=== PATIENT | female | born 1975 | race Hispanic/Latino ===

== ENCOUNTER 2018-09-10 01:44 | Emergency (ER) | payer OTHER, SELFPAY ==
[2018-09-10 02:09] VITALS: BP 129/49; PULSE 72; RESP 14; TEMP 36.4; O2SAT 95; BMI 24.5
[2018-09-10] MEDS: SODIUM CHLORIDE 0.9% 1,000 ML 1000 ML IV (03:00)
[2018-09-10 03:02] LABS: Add Manual Diff / Slide Review NO; Basophils Percent Auto 0.6 % (0-2); Eosinophils Percent Auto 1.8 % (2-4); Hematocrit 41.9 % (36-46); Hemoglobin 12.1 g/dL (12.0-16.0); Lymphocytes Percent Auto 33.9 % (25-40); Mean Corpuscular Hemoglobin 29.5 PG (26-34); Mean Corpuscular Volume 101.9 fL (80-100); Monocytes Percent Auto 6.9 % (3-14); Neutrophils Absolute Auto 3300 /uL (3000-5900); Neutrophils Percent Auto 56.8 % (50-75); Red Blood Cell Count 4.11 X10^6/uL (4.0-5.2); Red Cell Distribution Width 14.2 % (11.6-14.8); White Blood Cell Count 5.8 X10^3/uL (4.5-11.0)
[2018-09-10 03:04] LABS: Alanine Aminotransferase 93 IU/L (9-52); Albumin 4.6 g/dL (3.5-5.0); Albumin Globulin Ratio 1.5 (1.0-2.8); Alkaline Phosphatase 79 U/L (38-126); Aspartate Aminotransferase 131 IU/L (14-36); Bilirubin Total 2.9 mg/dL (0.2-1.3); Blood Urea Nitrogen 18 mg/dL (7-17); Calcium 8.7 mg/dL (8.4-10.2); Carbon Dioxide 27 mmol/L (22-32); Chloride 105 mmol/L (98-107); Estimated Glomerular Filt Rate > 60.0 mL/min (>60); Globulin 3.1 g/dL (1.7-4.1); Glucose 104 mg/dL (70-100); HEMOLYSIS < 15 (0-50); Potassium 3.6 mmol/L (3.4-5.1); Sodium 143 mmol/L (137-145); Total Protein 7.7 g/dL (6.3-8.2)
[2018-09-10 03:06] LABS: Lipase 180 U/L (23-300)
--- NOTE | 2018-09-10 03:06 | DI.US.S_ITS ---
PROCEDURE: US ABDOMEN COMPLETE INDICATIONS: RUQ pain, hx of cholecystectomy TECHNIQUE: Real-time scanning was performed of the abdominal and retroperitoneal organs, with image documentation. COMPARISON: , CT, ABDOMEN/PELVIS WITH CONTRAST, 11/21/2016, 13:37. FINDINGS: Liver: Liver is normal in size and homogeneous in echotexture. Gallbladder: Surgically absent. Biliary ducts: Intrahepatic bile ducts are non-dilated. Extrahepatic bile duct caliber measures 5.0 mm. Normal is 6-7 mm or less in diameter, or 10 mm or less post-cholecystectomy. Pancreas: Visualized portions of the pancreas are sonographically normal. Spleen: Spleen is enlarged in size at 17.3 cm and homogeneous in echotexture. Kidneys: Kidneys are normal in size and echotexture. Right kidney measures 11.8 cm long; left kidney measures 12.9 cm long. No hydronephrosis or nephrolithiasis. No solid masses. Aorta: Visualized aorta is normal in caliber at less than 3 cm. Iliacs: Proximal common iliac arteries are normal in caliber at less than 2.5 cm. IVC: Intrahepatic inferior vena cava is patent. Miscellaneous: No free abdominal fluid. IMPRESSION: 1. No source for mid epigastric and right upper quadrant pain identified. 2. Sonographic splenomegaly. Dictated by: Daren Craig David Interpreted: Ashwin Barney MD on 09/10/2018 at 9:11 Approved by: Ashwin Barney M.D. on 09/10/2018 at 10:30
--- NOTE | 2018-09-10 03:07 | ED_ITS ---
HPI - Abdominal Pain General Chief Complaint: Abdominal Pain Stated Complaint: stomach pain/vomiting x30 minutes Time Seen by Provider: 09/10/18 02:45 Source: patient and family () Mode of arrival: ambulatory Limitations: no limitations History of Present Illness HPI narrative: This is a 42-year-old female comes to the emergency department with complaint of abdominal pain. Patient states that pain is in her anterior abdomen radiates a little bit to the side on the right. She states it feels like when she had gallbladder issues but she had her gallbladder removed a couple years ago. She has not had any fevers, she is nauseous. She did have several episodes of vomiting prior to arrival. She denies any diarrhea or constipation. She denies any urinary symptoms. She states that she has had similar symptoms once or twice before but they resolved. This evening it woke her up from sleep and was quite uncomfortable. 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 She denies any other medical issues. She states that she has not had any other surgeries besides a cholecystectomy. Related Data Previous Rx's Medication Instructions Recorded cephalexin [Keflex] 500 mg PO BID 7 Days #14 cap 09/10/18 meloxicam [Mobic] 7.5 mg PO BID #10 tab 09/10/18 Allergies Allergy/AdvReac Type Severity Reaction Status Date / Time No Known Drug Allergies Allergy Verified 09/10/18 02:08 Review of Systems Review of Systems All systems reviewed & are unremarkable except as noted in HPI and below Constitutional Denies fever(s) Cardiovascular Denies chest pain and Denies dyspnea Respiratory Denies dyspnea Gastrointestinal Gastrointestinal: Reports abdominal pain, Denies melena, Denies change in bowel habits, Denies constipation, Denies diarrhea, Reports nausea, Reports vomiting and Denies hematemesis Genitourinary Denies urinary frequency, Denies dysuria, Denies flank pain and Denies urinary urgency Musculoskeletal Denies back pain PFSH Medical History Anemia (Chronic) Surgical History Anesthesia (Resolved) Status post laparoscopic cholecystectomy (~12/2013) Family History Mother Age: 60 Diabetes mellitus Social History Smoking Status: Never smoker alcohol intake: current substance use type: does not use Exam Narrative Exam Narrative: GENERAL: Alert and oriented x three, well-nourished, well- appearing female in moderate distress. HEENT: Head normocephalic, atraumatic, EOMI, pupils reactive, face symmetric, moist mucous membranes, patient appears to have some scleral icterus. NECK: Supple, full range of motion CARDIOVASCULAR: Regular rate and rhythm without murmurs, rubs or gallops. RESPIRATORY: Breath sounds equal bilaterally, no wheezes rales or rhonchi. ABDOMEN: Soft, nontender. Nondistended. Normoactive bowel sounds all 4 quadrants. No guarding or rebound, rigidity, no mass : No CVA tenderness EXTREMITIES: Normal range of motion, no clubbing or edema. Neurovascularly intact NEUROLOGICAL: Cranial nerves II through XII grossly intact. Moving all extremities SKIN: Warm, dry, no petechiae, no rashes or lesions. Initial Vital Signs Initial Vital Signs: Vital Signs Temperature 97.5 F L 09/10/18 02:09 Pulse Rate 72 09/10/18 02:09 Respiratory Rate 14 09/10/18 02:09 Blood Pressure 129/49 L 09/10/18 02:09 Pulse Oximetry 95 09/10/18 02:09 Course Orders Ordered: ED Orders 09/10/18 02:00 Complete Blood Count AUTO DIFF Stat Comprehensive Metabolic Panel Stat Lipase Stat 09/10/18 02:06 Ictotest Urine Stat Test Urine Stat Urinalysis and Microscopic Stat Urine Culture Stat 09/10/18 03:06 US abdomen complete Stat Discontinued Medications Cefazolin Sodium (Keflex) 1 bottle MIS SEEINSTR ONE Stop: 09/10/18 06:50 Last Admin: 09/10/18 07:02 Dose: 250 mg Sodium Chloride (Normal Saline 0.9%) 1,000 mls @ 1,000 mls/hr IV BOLUS ONE Stop: 09/10/18 03:44 Last Infusion: 09/10/18 04:01 Dose: 1,000 mls/hr Admin: 09/10/18 03:00 Dose: 1,000 mls/hr Ketorolac Tromethamine (Toradol) 30 mg IV NOW ONE Stop: 09/10/18 03:07 Last Admin: 09/10/18 03:26 Dose: 30 mg Ondansetron HCl (Zofran) 4 mg IV NOW ONE Stop: 09/10/18 02:46 Last Admin: 09/10/18 03:53 Dose: Not Given Ondansetron HCl (Zofran Odt Prepack) 1 bottle MISC SEEINSTR ONE Stop: 09/10/18 06:50 Last Admin: 09/10/18 07:03 Dose: 1 bottle Vital Signs - 8 hr 09/10/18 02:09 09/10/18 07:18 Temperature 97.5 F L Pulse Rate 72 66 Respiratory Rate 14 14 Blood Pressure 129/49 L 112/56 L Pulse Oximetry 95 94 MDM - Abdominal Pain Lab Data Attestation: I reviewed the patient's lab results. Result diagrams: 09/10/18 02:00 09/10/18 02:00 Lab Results 09/10/18 09/10/18 09/10/18 Range/Units 02:00 02:00 02:00 WBC 5.8 (4.5-11.0) X10^3/uL RBC 4.11 (4.0-5.2) X10^6/uL Hgb 12.1 (12.0-16.0) g/dL Hct 41.9 (36-46) % MCV 101.9 H (80-100) fL MCH 29.5 (26-34) PG MCHC 29.0 L (30-36) % RDW 14.2 (11.6-14.8) % Plt Count 59 L (150-400) X10^3/uL Neut % (Auto) 56.8 (50-75) % Lymph % (Auto) 33.9 (25-40) % [place] % (Auto) 6.9 (3-14) % Eos % (Auto) 1.8 L (2-4) % Baso % (Auto) 0.6 (0-2) % Neut # (Auto) 3300 (0357-2819) /uL Sodium 143 (137-145) mmol/L Potassium 3.6 (3.4-5.1) mmol/L Chloride 105 (98-107) mmol/L Carbon Dioxide 27 (22-32) mmol/L BUN 18 H (7-17) mg/dL Creatinine 0.60 (0.52-1.04) mg/dL Estimated GFR > 60.0 (>60) mL/min BUN/Creatinine Ratio 30.0 H (6-22) Glucose 104 H (70-100) mg/dL Calcium 8.7 (8.4-10.2) mg/dL Total Bilirubin 2.9 H (0.2-1.3) mg/dL AST 131 H (14-36) IU/L ALT 93 H (9-52) IU/L Alkaline Phosphatase 79 (38-126) U/L Total Protein 7.7 (6.3-8.2) g/dL Albumin 4.6 (3.5-5.0) g/dL Globulin 3.1 (1.7-4.1) g/dL Albumin/Globulin Ratio 1.5 (1.0-2.8) Lipase 180 (23-300) U/L Urine Color Urine Appearance Urine pH (4.5-8.0) Ur Specific [place] (1.000-1.035) Urine Protein (Negative) Urine Glucose (UA) (Normal) g/dL Urine Ketones (NEGATIVE) Urine Occult Blood (Negative) Urine Nitrate (Negative) Urine Bilirubin (NEGATIVE) Urine Ictotest (Negative) Urine Urobilinogen (0.2) E.U./dL Ur Leukocyte Esterase (NEGATIVE) Urine RBC (0-5/HPF) Urine WBC (0-5/HPF) Ur Squamous Epith Cells Amorphous Sediment Urine Bacteria (None) Ur Culture Indicated? Micro UA Comment Urine Test (Negative) 09/10/18 09/10/18 Range/Units 02:06 02:06 WBC (4.5-11.0) X10^3/uL RBC (4.0-5.2) X10^6/uL Hgb (12.0-16.0) g/dL Hct (36-46) % MCV (80-100) fL MCH (26-34) PG MCHC (30-36) % RDW (11.6-14.8) % Plt Count (150-400) X10^3/uL Neut % (Auto) (50-75) % Lymph % (Auto) (25-40) % [place] % (Auto) (3-14) % Eos % (Auto) (2-4) % Baso % (Auto) (0-2) % Neut # (Auto) (1242-3525) /uL Sodium (137-145) mmol/L Potassium (3.4-5.1) mmol/L Chloride (98-107) mmol/L Carbon Dioxide (22-32) mmol/L BUN (7-17) mg/dL Creatinine (0.52-1.04) mg/dL Estimated GFR (>60) mL/min BUN/Creatinine Ratio (6-22) Glucose (70-100) mg/dL Calcium (8.4-10.2) mg/dL Total Bilirubin (0.2-1.3) mg/dL AST (14-36) IU/L ALT (9-52) IU/L Alkaline Phosphatase (38-126) U/L Total Protein (6.3-8.2) g/dL Albumin (3.5-5.0) g/dL Globulin (1.7-4.1) g/dL Albumin/Globulin Ratio (1.0-2.8) Lipase (23-300) U/L Urine Color Brown Urine Appearance Turbid Urine pH 5.0 (4.5-8.0) Ur Specific [place] 1.025 (1.000-1.035) Urine Protein 2+ H (Negative) Urine Glucose (UA) Negative (Normal) g/dL Urine Ketones Trace H (NEGATIVE) Urine Occult Blood 2+ H (Negative) Urine Nitrate Positive H (Negative) Urine Bilirubin 1+ H (NEGATIVE) Urine Ictotest Positive H (Negative) Urine Urobilinogen 1.0 (0.2) E.U./dL Ur Leukocyte Esterase Negative (NEGATIVE) Urine RBC None seen (0-5/HPF) Urine WBC 1-5/hpf (0-5/HPF) Ur Squamous Epith Cells 1-5 /hpf Amorphous Sediment 4+ Urine Bacteria Few (2-10) H (None) Ur Culture Indicated? Specimen cultured Micro UA Comment Not Reportable Urine Test Negative (Negative) ECG Data Attestation: I personally reviewed and interpreted this ECG as follows: Interpretation: Cholecystectomy, splenomegaly. Moderately enlarged measuring 17 cm. MDM Narrative Medical decision making narrative: Patient has elevated bilirubin consistent with prior numbers as well as LFTs. Her platelets are slightly decreased. Ultrasound shows splenomegaly but no other acute changes. Patient's symptoms have improved while here in the department. We discussed in plan for follow-up with her primary care for additional imaging evaluation. Spoke with Dr. Serrano and patient and she has unstable hemoglobinopathy. Will follow closely. UTI treated. Discharge Plan Departure Patient Disposition: Home Clinical Impression: Abdominal pain Discharge Date/Time: 09/10/18 07:19 Interventions: ED Discharge Assessment Last Done: 09/10/18 07:18 Instructions: DI for Abdominal Pain-Adult Activity Restrictions/Additional Instructions: Follow-up with your primary care physician in next 3-5 days for recheck. Discussed with them about your findings including splenomegaly or enlarged spleen on your ultrasound. As well as your history of hemoglobinopathy. Your labs show elevated bilirubin and liver enzymes. They may wish to do some additional imaging and should do additional labs with your recurrent abdominal pain. Return to the emergency department for fevers greater than 100.4, persistent vomiting, persistent or severe abdominal pain, black or bloody stools, passing out or other new or concerning symptoms. Prescriptions: New meloxicam [Mobic] 7.5 mg tablet 7.5 mg PO BID Qty: 10 RF: 0 cephalexin [Keflex] 500 mg capsule 500 mg PO BID 7 Days Qty: 14 RF: 0 Referrals: Catalina Smith MD [Primary Care Provider] -
[2018-09-10] MEDS: KETOROLAC 60 MG/2 ML VIAL 30 MG IV (03:26)
[2018-09-10 03:32] LABS: Platelet Count 59 X10^3/uL (150-400)
[2018-09-10 06:02] LABS: Pregnancy Test Urine Negative (Negative)
[2018-09-10 06:19] LABS: RBC Urine None Seen (0-5/HPF)
[2018-09-10 06:24] LABS: Bilirubin Urine UA 1+ (NEGATIVE); Glucose Urine UA NEGATIVE (Normal); Ketones Urine UA TRACE (NEGATIVE); Leukocyte Esterase Urine UA NEGATIVE (NEGATIVE); Nitrite Urine UA POSITIVE (Negative); Occult Blood Urine UA 2+ (Negative); Protein Urine UA 2+ (Negative); Specific Gravity Urine UA 1.025 (1.000-1.035)
[2018-09-10 06:33] LABS: Appearance Urine UA TURBID; Color Urine UA BROWN
[2018-09-10] MEDS: cephALEXin 250 MG PREPACK 1 BOTTLE MISC (07:02)
[2018-09-10] MEDS: ONDANSETRON 4 MG ODT PREPACK 1 BOTTLE MISC (07:03)
[2018-09-10 07:10] LABS: Amorphous Sediment Urine 4+; Bacteria Urine Few (2-10); Culture Indicated Urine Specimen Cultured; Ictotest Urine Positive (Negative); Squamous Epithelial Cell Urine 1-5 /HPF; WBC Urine 1-5/HPF (0-5/HPF)
[2018-09-10 07:18] VITALS: BP 112/56; PULSE 66; RESP 14; O2SAT 94
== END 2018-09-10 07:19 | disposition home or self-care (01) ==
PROVIDERS: Emergency Provider Emergency Medicine; PCP Family Medicine
DX: R10.9 Unspecified abdominal pain (principal)
CPT/HCPCS: 76700; 80053; 81001; 81025; 83690; 85025; 87086; 96361; 96374; 99283; 99284; J1885

== ENCOUNTER → 2018-09-29 08:02 | Outpatient (CLI) | payer OTHER, SELFPAY ==
--- NOTE | 2018-09-29 09:06 | DI.CT.S_ITS ---
PROCEDURE: CT ABDOMEN PELVIS W CON INDICATIONS: ongoing right upper quad pain TECHNIQUE: After the administration of oral and intravenous contrast, 5 mm thick sections acquired from the diaphragms to the symphysis. 5 mm thick coronal and sagittal reformats were performed. For radiation dose reduction, the following was used: automated exposure control, adjustment of mA and/or kV according to patient size. COMPARISON: [facility], CT, ABDOMEN/PELVIS WITH CONTRAST, 11/21/2016, 13:37. FINDINGS: Image quality: Excellent. ABDOMEN: Lung bases: Lung bases are clear. Heart size is normal. Solid organs: Liver is normal in size and enhancement. Gallbladder surgically absent. Biliary system is non-dilated. Pancreas enhances normally. Spleen is enlarged as before. No adrenal nodules. Kidneys are normal in size and enhancement, without hydronephrosis. Peritoneum and bowel: Stomach distended otherwise unremarkable. Small bowel grossly unremarkable. There is possible cecal and ascending right colonic wall thickening, for example image 50 series 2 although limited evaluation given largely collapsed state. No free fluid or air. The appendix is greater than expected in size/diameter however there is air within the lumen and this is unchanged appearance since 11/21/16 probably normal anatomic variant. No periappendiceal inflammatory changes identified. Colonic diverticulosis is seen without evidence of acute complication. Rectum is grossly unremarkable Nodes and vessels: No retroperitoneal or mesenteric adenopathy. Aorta and inferior vena cava are normal in caliber. Miscellaneous: No ventral hernias. PELVIS: Genitourinary: Bladder wall thickness is normal. Possible hemorrhagic right ovarian cyst image 63 series 2 with peripheral enhancement (in the setting of negative serum test.) Miscellaneous: No inguinal hernias or adenopathy. Bones: No suspicious bony lesions. No vertebral body compression fractures. IMPRESSION: Possible cecal and right colonic wall thickening suggestive of statistically low-grade infectious or inflammatory colitis however limited evaluation given collapsed state therefore please correlate clinically. Normal appendix. Status post cholecystectomy Redemonstrated splenomegaly. Presumed right-sided hemorrhagic ovarian cyst (in the setting of negative serum test) if needed, further evaluation with pelvic ultrasound could be performed. Dictated by: Delonte Thacker M.D. on 09/29/2018 at 10:02 Approved by: Delonte Thacker M.D. on 09/29/2018 at 10:09
== END ==
PROVIDERS: PCP Family Medicine; Visit Provider Family Medicine
DX: R10.11 Right upper quadrant pain (principal); R16.1 Splenomegaly, not elsewhere classified; K57.90 Diverticulosis of intestine, part unspecified, without perforation or abscess without bleeding; Z90.49 Acquired absence of other specified parts of digestive tract
CPT/HCPCS: 74177; Q9967

== ENCOUNTER → 2018-10-01 12:02 | Outpatient (CLI) | payer OTHER, SELFPAY | PROVIDERS: PCP Family Medicine; Visit Provider Family Medicine | DX: Z13.9 Encounter for screening, unspecified (principal) ==

== ENCOUNTER → 2018-10-15 12:13 | Outpatient (CLI) | payer OTHER, SELFPAY ==
--- NOTE | 2018-10-15 | DI.US.S_ITS ---
PROCEDURE: US PELVIC COMPLETE INDICATIONS: OVARIAN CYST TECHNIQUE: Real-time scanning was performed of the pelvic organs, with image documentation. Additional endovaginal scanning was necessary due to incomplete visualization of the adnexal and endometrial structures by transabdominal scanning. COMPARISON: [facility], CT, CT ABDOMEN PELVIS W CON, 09/29/2018, 8:45. [facility], US, PELVIC COMPLETE, 11/27/2016, 7:24. FINDINGS: Transabdominal scanning: Limited scanning through the kidneys shows no hydronephrosis. No pathologic free abdominal or pelvic fluid. Endovaginal scanning: Uterus: Uterus is normal in size at 7.3 x 3.4 x 4.3 cm. The endometrium measures 13.0 mm in combined thickness. Ovaries: Ovaries normal measuring 2.6 x 1.0 x 1.5 cm on the right and 2.7 x 1.9 x 2.4 cm on the left. Hemorrhagic right ovarian cyst has resolved. 1.2 cm simple right paraovarian cyst. A 1.6 cm simple left ovarian cyst. IMPRESSION: Resolved hemorrhagic right ovarian cyst. Dictated by: Daren Craig [facility] Interpreted: Phill Coronado MD on 10/15/2018 at 13:36 Approved by: Phill Coronado M.D. on 10/15/2018 at 14:29
== END ==
PROVIDERS: PCP Family Medicine; Visit Provider Family Medicine
DX: N83.291 Other ovarian cyst, right side (principal); N83.292 Other ovarian cyst, left side
CPT/HCPCS: 76830; 76856

== ENCOUNTER → 2018-11-12 12:47 | Outpatient (CLI) | payer OTHER, SELFPAY ==
--- NOTE | 2018-11-12 | DI.MG.S_ITS ---
BILATERAL DIGITAL SCREENING MAMMOGRAM 3D/2D WITH CAD: 11/12/2018 CLINICAL: Routine screening. Comparison is made to exams dated: 10/28/2017 mammogram and 08/23/2014 mammogram - [facility]. The tissue of both breasts is heterogeneously dense. This may lower the sensitivity of mammography. Current study was also evaluated with a Computer Aided Detection (CAD) system. No significant masses, calcifications, or other findings are seen in either breast. There has been no significant interval change. IMPRESSION: NEGATIVE There is no mammographic evidence of malignancy. A 1 year screening mammogram is recommended. This exam was interpreted at Station ID: [id number]. NOTE: For mammograms, a report in lay terms will be sent to the patient. Approximately 15% of breast malignancies will not be visualized mammographically. In the management of a palpable breast mass, a negative mammogram must not discourage biopsy of a clinically suspicious lesion. Electronically Signed By: Kody griffin/veronique:11/12/2018 19:08:01 letter sent: Normal Exam ACR BI-RADS Category 1: Negative [id number]
== END ==
PROVIDERS: PCP Family Medicine; Visit Provider Family Medicine
DX: Z12.31 Encounter for screening mammogram for malignant neoplasm of breast (principal)
CPT/HCPCS: 77063; 77067

== ENCOUNTER → 2019-01-20 18:21 | Outpatient (CLI) | payer OTHER, SELFPAY ==
[2019-01-20 20:04] LABS: Influenza A and B by PCR Rapid Negative (Negative)
== END ==
LOC: LAB 18:22
PROVIDERS: PCP Family Medicine; Visit Provider Physician Assistant
DX: R68.89 Other general symptoms and signs (principal)
CPT/HCPCS: 87400

== ENCOUNTER → 2019-08-03 09:56 | Outpatient (CLI) | payer OTHER, SELFPAY | PROVIDERS: PCP Family Medicine; Visit Provider Physician Assistant | DX: J02.9 Acute pharyngitis, unspecified (principal) | CPT/HCPCS: 87070; 87077; 87147 ==

== ENCOUNTER → 2019-12-29 16:43 | Outpatient (CLI) | payer OTHER, SELFPAY ==
--- NOTE | 2019-12-29 | DI.MG.S_ITS ---
BILATERAL DIGITAL SCREENING MAMMOGRAM 3D/2D WITH CAD: 12/29/2019 CLINICAL: Routine screening. Comparison is made to exams dated: 11/12/2018 mammogram, 10/28/2017 mammogram, and 08/23/2014 mammogram - [facility]. The tissue of both breasts is heterogeneously dense. This may lower the sensitivity of mammography. Current study was also evaluated with a Computer Aided Detection (CAD) system. No significant masses, calcifications, or other findings are seen in either breast. There has been no significant interval change. IMPRESSION: NEGATIVE There is no mammographic evidence of malignancy. A 1 year screening mammogram is recommended. This exam was interpreted at Station ID: [id number]. NOTE: For mammograms, a report in lay terms will be sent to the patient. Approximately 15% of breast malignancies will not be visualized mammographically. In the management of a palpable breast mass, a negative mammogram must not discourage biopsy of a clinically suspicious lesion. Electronically Signed By: Ryan wing/veronique:12/29/2019 17:14:34 letter sent: Normal Exam ACR BI-RADS Category 1: Negative [id number]
== END ==
PROVIDERS: PCP Family Medicine; Referring Provider Family Medicine; Visit Provider Family Medicine
DX: Z12.31 Encounter for screening mammogram for malignant neoplasm of breast (principal)
CPT/HCPCS: 77063; 77067

== ENCOUNTER → 2020-01-31 10:42 | Outpatient (CLI) | payer OTHER, SELFPAY ==
[2020-01-31 11:28] LABS: Appearance Urine UA CLOUDY; Bilirubin Urine UA 1+ (NEGATIVE); Color Urine UA ORANGE; Glucose Urine UA NEGATIVE (Negative); Ketones Urine UA NEGATIVE (NEGATIVE); Leukocyte Esterase Urine UA 2+ (NEGATIVE); Nitrite Urine UA POSITIVE (Negative); Occult Blood Urine UA 3+ (Negative); Protein Urine UA 2+ (Negative); Urobilinogen Urine UA 0.2 E.U./dL (0.2)
[2020-01-31 11:36] LABS: pH Urine UA 5.5 (4.5-8.0)
[2020-01-31 11:39] LABS: Ictotest Urine Negative (Negative)
[2020-01-31 11:40] LABS: Bacteria Urine Many (>30); Culture Indicated Urine Specimen Cultured; RBC Urine >100/HPF (0-5/HPF); WBC Urine 30-100/HPF (0-5/HPF)
== END ==
LOC: LAB 10:43
PROVIDERS: PCP Family Medicine; Referring Provider Family Medicine; Visit Provider Family Medicine
DX: R30.0 Dysuria (principal); R31.9 Hematuria, unspecified
CPT/HCPCS: 81003; 81015; 87077; 87086; 87186

== ENCOUNTER → 2020-12-10 09:02 | Outpatient (CLI) | payer OTHER, SELFPAY | PROVIDERS: PCP Family Medicine; Visit Provider Family Medicine | DX: R39.89 Other symptoms and signs involving the genitourinary system (principal) | CPT/HCPCS: 87077; 87086; 87186 ==

== ENCOUNTER → 2020-12-12 14:18 | Outpatient (CLI) | payer OTHER, SELFPAY ==
[2020-12-12 16:27] LABS: Alanine Aminotransferase 26 IU/L (<35); Albumin 4.6 g/dL (3.5-5.0); Albumin Globulin Ratio 1.4 (1.0-2.8); Alkaline Phosphatase 63 U/L (38-126); Aspartate Aminotransferase 55 IU/L (14-36); Bilirubin Total 3.3 mg/dL (0.2-1.3); Blood Urea Nitrogen 14 mg/dL (7-17); Calcium 8.7 mg/dL (8.4-10.2); Carbon Dioxide 28 mmol/L (22-32); Chloride 103 mmol/L (98-107); Estimated Glomerular Filt Rate > 60.0 mL/min (>60); Globulin 3.3 g/dL (1.7-4.1); Glucose 78 mg/dL (70-100); HEMOLYSIS < 15 (0-50); Potassium 3.4 mmol/L (3.4-5.1); Sodium 137 mmol/L (137-145); Total Protein 7.9 g/dL (6.3-8.2)
== END ==
PROVIDERS: PCP Family Medicine; Referring Provider Family Medicine; Visit Provider Family Medicine
DX: R74.8 Abnormal levels of other serum enzymes (principal)
CPT/HCPCS: 36415; 80053

== ENCOUNTER → 2021-01-01 10:56 | Outpatient (CLI) | payer OTHER, SELFPAY ==
--- NOTE | 2021-01-01 10:56 | DI.MG.S_ITS ---
BILATERAL DIGITAL SCREENING MAMMOGRAM 3D/2D WITH CAD: 01/01/2021 CLINICAL: Routine screening. Comparison is made to exams dated: 12/29/2019 mammogram, 11/12/2018 mammogram, and 10/28/2017 mammogram - [facility]. The tissue of both breasts is heterogeneously dense. This may lower the sensitivity of mammography. Current study was also evaluated with a Computer Aided Detection (CAD) system. No significant masses, calcifications, or other findings are seen in either breast. There has been no significant interval change. IMPRESSION: NEGATIVE There is no mammographic evidence of malignancy. A 1 year screening mammogram is recommended. This exam was interpreted at Station ID: [id number]. NOTE: For mammograms, a report in lay terms will be sent to the patient. Approximately 15% of breast malignancies will not be visualized mammographically. In the management of a palpable breast mass, a negative mammogram must not discourage biopsy of a clinically suspicious lesion. Electronically Signed By: Darren Merrill acr/penrad:01/01/2021 14:58:16 letter sent: Normal Exam ACR BI-RADS Category 1: Negative [id number]
== END ==
PROVIDERS: PCP Family Medicine; Referring Provider Family Medicine; Visit Provider Family Medicine
DX: Z12.31 Encounter for screening mammogram for malignant neoplasm of breast (principal)
CPT/HCPCS: 77063; 77067

== ENCOUNTER → 2021-04-09 08:20 | Outpatient (CLI) | payer OTHER, SELFPAY ==
[2021-04-09 09:02] LABS: COVID19 -Nasal RAPID Negative (Negative)
[2021-04-09 09:17] LABS: Influenza A - CEPHEID Flu A NEGATIVE (NEGATIVE); Influenza B - CEPHEID Flu B NEGATIVE (NEGATIVE)
== END ==
PROVIDERS: PCP Family Medicine; Visit Provider Student in an Organized Health Care Education/Training Program
DX: Z20.822 Contact with and (suspected) exposure to COVID-19 (principal); J31.2 Chronic pharyngitis; R52 Pain, unspecified
CPT/HCPCS: 87070; 87502; 87635

== ENCOUNTER → 2021-04-09 09:17 | Outpatient (CLI) | payer OTHER, SELFPAY ==
[2021-04-09 11:31] LABS: Hemoglobin 10.4 g/dL (12.0-16.0); Mean Corpuscular HGB Conc 28.8 % (30-36); Mean Corpuscular Hemoglobin 29.8 PG (26-34); Mean Corpuscular Volume 103.6 fL (80-100); Platelet Count 48 X10^3/uL (150-400); Red Blood Cell Count 3.47 X10^6/uL (4.0-5.2); Red Cell Distribution Width 14.8 % (11.6-14.8); White Blood Cell Count 14.4 X10^3/uL (4.5-11.0)
[2021-04-09 11:32] LABS: Add Manual Diff / Slide Review YES
[2021-04-09 11:46] LABS: Anisocytosis 2+; Macrocytosis 1+; Neutrophils Absolute Manual 13248 /uL (3000-5900); Total Cells Counted 100
[2021-04-09 11:51] LABS: Alanine Aminotransferase 27 IU/L (<35); Albumin 4.3 g/dL (3.5-5.0); Albumin Globulin Ratio 1.5 (1.0-2.8); Alkaline Phosphatase 65 U/L (38-126); Aspartate Aminotransferase 65 IU/L (14-36); BUN Creatinine Ratio 26.2 (6-22); Bilirubin Total 4.8 mg/dL (0.2-1.3); Blood Urea Nitrogen 11 mg/dL (7-17); Calcium 8.7 mg/dL (8.4-10.2); Carbon Dioxide 23 mmol/L (22-32); Chloride 104 mmol/L (98-107); Estimated Glomerular Filt Rate > 60.0 mL/min (>60); Globulin 2.9 g/dL (1.7-4.1); Glucose 100 mg/dL (70-100); HEMOLYSIS < 15 (0-50); Potassium 3.3 mmol/L (3.4-5.1); Sodium 137 mmol/L (137-145); Total Protein 7.2 g/dL (6.3-8.2)
== END ==
PROVIDERS: PCP Family Medicine; Referring Provider Student in an Organized Health Care Education/Training Program; Visit Provider Student in an Organized Health Care Education/Training Program
DX: D58.2 Other hemoglobinopathies (principal); J02.8 Acute pharyngitis due to other specified organisms; J31.2 Chronic pharyngitis; B96.89 Other specified bacterial agents as the cause of diseases classified elsewhere; R52 Pain, unspecified; Z20.822 Contact with and (suspected) exposure to COVID-19
CPT/HCPCS: 36415; 80053; 85007; 85025; 87070; 87502; 87635

== ENCOUNTER → 2021-08-11 11:42 | Outpatient (CLI) | payer OTHER, SELFPAY ==
[2021-08-11 12:37] LABS: COVID19 -Nasal RAPID POSITIVE (Negative)
== END ==
PROVIDERS: PCP Family Medicine; Visit Provider Nurse Practitioner Family
DX: U07.1 COVID-19 (principal)
CPT/HCPCS: 87635

== ENCOUNTER 2022-02-28 02:13 | Observation (INO) | payer OTHER, SELFPAY ==
[2022-02-28] VITALS (13 sets, daily range): BP systolic 102–145; BP diastolic 45–79; PULSE 85–114; RESP 16–20; TEMP 36.5–37.2; O2SAT 90–96; BMI 23.6
--- NOTE | 2022-02-28 02:14 | ED.ALLEREA ---
HPI - Allergic Reaction General Chief complaint: Allergic Reaction Stated complaint: ALLERGIC REACTION ON FACE SWOLLEN Time Seen by Provider: 02/28/22 02:14 History of Present Illness HPI narrative: 46F nonsmoker with history of autoimmune hemolytic anemia presents with right sided dental pain and facial swelling worsening over the past 2 days. She'd been to see her dentist and had some work done on a right upper premolar with a bad crown, soon thereafter she developed the worsening pain and swelling. She was given a prescription Augentin and has taken 2 doses. He pain and swelling started before taking augmentin. She denies any swelling of her tongue or throat, has no trouble swallowing or breathing. She denies any rash or GI symptoms such as nausea, vomiting or diarrhea. She has had no fever or chills. She is not dizzy nor weak or lightheaded. She has not taken any antihistamines but does admit to having taken Tylenol and Motrin and the pain has improved. Related Data Home Medications Medication Instructions Recorded Confirmed No Known Home Medications 08/11/21 08/11/21 Allergies Allergy/AdvReac Type Severity Reaction Status Date / Time No Known Drug Allergies Allergy Verified 08/11/21 11:44 Review of Systems Review of Systems Narrative: GENERAL: Denies chills, fatigue, malaise, fever, sweats. HEENT: See HPI RESPIRATORY: Denies dyspnea, cough, wheezing, hemoptysis, sputum. CARDIOVASCULAR: Denies chest pain, palpitations, orthopnea, edema, GASTROINTESTINAL: Denies nausea, vomiting, abdominal pain, diarrhea, constipation, melena. : Denies dysuria, frequency, incontinence, hematuria, urinary retention. MUSCULOSKELETAL: denies weakness, joint pain, or bony pain SKIN: Denies rash, skin lesions, or other NEUROLOGIC: Denies weakness, headache, numbness, change in speech, confusion, seizures, incoordination. PSYCHIATRIC: No concerning psychosocial issues. 12 point review of systems is negative except for those stated above Patient History Medical History (Updated 02/28/22 @ 03:59 by Jose Jacob DO) Anemia Surgical History Anesthesia Status post laparoscopic cholecystectomy (~12/2013) Family History Mother Age: 64 Diabetes mellitus Social History Smoking Status: Never smoker alcohol intake: current substance use type: does not use Smoking Status: Never smoker alcohol intake frequency: 0-2 drinks per day Substance Use Type: does not use Exam Narrative Exam Narrative: GENERAL: [46] year old patient appears stated age. Well-developed patient, in mild distress. HEAD: Impressive right-sided facial swelling over the cheek and upper lip, it is firm and tender to palpation but no fluctuance, redness or warmth is noted. There is also some swelling around her eye but no vision change, blurring or pain with extraocular motions. EYES: Pupils equal round and reactive. Extraocular motions intact. No scleral icterus. No injection or drainage. ENT: Nose without bleeding, purulent drainage. No tongue or throat swelling, no difficulty with swallowing or breathing. No obvious dental source Throat without erythema, tonsillar hypertrophy or exudate. Airway patent. NECK: Trachea midline. Non tender CARDIOVASCULAR: Regular rate and rhythm without murmurs, gallops, or rubs. RESPIRATORY: Clear to auscultation. Breath sounds equal bilaterally. No wheezes, rales, or rhonchi. GASTROINTESTINAL: Abdomen soft, non-tender, nondistended. EXTREMITIES: No edema or joint tenderness. BACK: Nontender without deformity or crepitance. No flank tenderness. NEURO: AOx3. SKIN: No rash or erythema of visible areas Initial Vital Signs Initial Vital Signs: Vital Signs Temperature 98 F 02/28/22 02:15 Pulse Rate 114 H 02/28/22 02:15 Respiratory Rate 20 02/28/22 02:15 Blood Pressure 145/79 H 02/28/22 02:15 Pulse Oximetry 92 02/28/22 02:15 Course Orders Ordered: ED Orders 02/28/22 02:20 CT facial bones w con Stat 02/28/22 02:25 Complete Blood Count AUTO DIFF Stat Comprehensive Metabolic Panel Stat Lactate (Lactic Acid) Stat 02/28/22 02:35 Blood Culture Stat 02/28/22 02:50 COVID19 -Nasal RAPID/Pre-Proc Stat Famotidine (Famotidine 20 Mg/2 Ml Vial) 20 mg IV NOW EARLINE Last Admin: 02/28/22 02:33 Dose: 20 mg Documented by: JAIME Discontinued Medications Diphenhydramine HCl (Diphenhydramine 50 Mg/Ml Vial) 25 mg IV NOW ONE Stop: 02/28/22 02:21 Last Admin: 02/28/22 02:32 Dose: 25 mg Documented by: JAIME Sodium Chloride (Normal Saline 0.9%) 1,000 mls @ 1,000 mls/hr IV BOLUS ONE Stop: 02/28/22 03:19 Last Admin: 02/28/22 02:50 Dose: 1,000 mls/hr Documented by: JAIME Dexamethasone 20 mg/ Sodium (Chloride) 52 mls @ 208 mls/hr IV NOW ONE Stop: 02/28/22 02:21 Last Infusion: 02/28/22 03:26 Dose: 0 mls/hr Documented by: Admin: 02/28/22 02:35 Dose: 208 mls/hr Documented by: JAIME Ampicillin Sodium/Sulbactam (Sodium 3 gm/ Sodium Chloride) 100 mls @ 100 mls/hr IV NOW ONE Stop: 02/28/22 03:54 Last Admin: 02/28/22 04:02 Dose: 100 mls/hr Documented by: JAIME Ketorolac Tromethamine (Ketorolac 30 Mg/Ml Vial) 15 mg IV NOW ONE Stop: 02/28/22 02:21 Last Admin: 02/28/22 02:35 Dose: 15 mg Documented by: JAIME Consultations Consultation #1: Discussed case with Dr. Gayle, he is happy to accept patient on his service on behalf of Dr. Smith but requests patient be admitted to her. Agrees with treatment and plan thusfar. Vital Signs Vital signs: Vital Signs - 8 hr 02/28/22 02:15 02/28/22 02:29 02/28/22 02:30 Temperature 98 F Pulse Rate 114 H 108 H 111 H Respiratory Rate 20 Blood Pressure 145/79 H Pulse Oximetry 92 91 90 L 02/28/22 03:00 02/28/22 03:31 02/28/22 03:33 Temperature Pulse Rate 108 H 106 H 106 H Respiratory Rate Blood Pressure 139/66 Pulse Oximetry 91 92 91 02/28/22 04:00 Temperature Pulse Rate 104 H Respiratory Rate Blood Pressure Pulse Oximetry 90 L MDM - Allergic Reaction Lab Data Result diagrams: 02/28/22 02:25 02/28/22 02:25 Labs: Lab Results 02/28/22 02/28/22 02/28/22 Range/Units 02:25 02:25 02:25 WBC 8.4 (4.5-11.0) X10^3/uL RBC 4.27 (4.0-5.2) X10^6/uL Hgb 12.7 (12.0-16.0) g/dL Hct 43.0 (36-46) % MCV 100.7 H (80-100) fL MCH 29.7 (26-34) PG MCHC 29.5 L (30-36) % RDW 14.6 (11.6-14.8) % Plt Count 49 L (150-400) X10^3/uL Neut % (Auto) 85.2 H (50-75) % Lymph % (Auto) 7.9 L (25-40) % [place] % (Auto) 5.7 (3-14) % Eos % (Auto) 0.6 L (2-4) % Baso % (Auto) 0.6 (0-2) % Neut # (Auto) 7200 H (3805-9416) /uL Lymph # (Auto) 700 L (0420-1855) /uL [place] # (Auto) 500 (0-900) /uL Eos # (Auto) 100 (0-450) /uL Baso # (Auto) 100 (0-100) /uL Platelet Estimate Decreased on smear RBC Morphology See below Polychromasia 2+ H Macrocytosis 1+ H Sodium 141 (137-145) mmol/L Potassium 3.7 (3.4-5.1) mmol/L Chloride 108 H (98-107) mmol/L Carbon Dioxide 24 (22-32) mmol/L BUN 9 (7-17) mg/dL Creatinine 0.47 L (0.52-1.04) mg/dL Estimated GFR > 60 (>60) mL/min BUN/Creatinine Ratio 19.1 (6-22) Glucose 125 H (70-100) mg/dL Lactate 0.8 (0.7-2.1) mmol/L Calcium 8.5 (8.4-10.2) mg/dL Total Bilirubin 4.8 H (0.2-1.3) mg/dL AST 151 H (14-36) IU/L ALT 134 H (<35) IU/L Alkaline Phosphatase 103 (38-126) U/L Total Protein 8.4 H (6.3-8.2) g/dL Albumin 4.8 (3.5-5.0) g/dL Globulin 3.6 (1.7-4.1) g/dL Albumin/Globulin Ratio 1.3 (1.0-2.8) SARS-CoV-2 (PCR) (Negative) 02/28/22 Range/Units 02:50 WBC (4.5-11.0) X10^3/uL RBC (4.0-5.2) X10^6/uL Hgb (12.0-16.0) g/dL Hct (36-46) % MCV (80-100) fL MCH (26-34) PG MCHC (30-36) % RDW (11.6-14.8) % Plt Count (150-400) X10^3/uL Neut % (Auto) (50-75) % Lymph % (Auto) (25-40) % [place] % (Auto) (3-14) % Eos % (Auto) (2-4) % Baso % (Auto) (0-2) % Neut # (Auto) (3602-4775) /uL Lymph # (Auto) (4869-4482) /uL [place] # (Auto) (0-900) /uL Eos # (Auto) (0-450) /uL Baso # (Auto) (0-100) /uL Platelet Estimate RBC Morphology Polychromasia Macrocytosis Sodium (137-145) mmol/L Potassium (3.4-5.1) mmol/L Chloride (98-107) mmol/L Carbon Dioxide (22-32) mmol/L BUN (7-17) mg/dL Creatinine (0.52-1.04) mg/dL Estimated GFR (>60) mL/min BUN/Creatinine Ratio (6-22) Glucose (70-100) mg/dL Lactate (0.7-2.1) mmol/L Calcium (8.4-10.2) mg/dL Total Bilirubin (0.2-1.3) mg/dL AST (14-36) IU/L ALT (<35) IU/L Alkaline Phosphatase (38-126) U/L Total Protein (6.3-8.2) g/dL Albumin (3.5-5.0) g/dL Globulin (1.7-4.1) g/dL Albumin/Globulin Ratio (1.0-2.8) SARS-CoV-2 (PCR) Negative (Negative) Urine Dip Bedside Urine Glucose Negative Bedside Urine Bilirubin - Negative Bedside Urine Ketone - Negative Urine Specific [place] 1.010 Bedside Urine Occult Blood - Negative Bedside Urine pH 6.5 Bedside Urine Protein - Negative Bedside Urine Urobilinogen +/- 1mg Bedside Urine Nitrite - Negative Bedside Urine Leukocytes +/- 15 Esterase Imaging Data Facial w/contrast: Radiologist's Impression: Right facial soft tissue swelling compatible with cellulitis. No evidence of abscess. Mild mucosal thickening in the right maxillary sinus Discharge Plan Departure Patient Disposition: Admitted as Observation Clinical Impression: Cellulitis of face Admit Date/Time: 02/28/22 04:04 Admit Provider: Catalina Smith
--- NOTE | 2022-02-28 02:20 | DI.CT.S_ITS ---
PROCEDURE: CT FACIAL BONES W CON INDICATIONS: pain, swelling, R face, recent dental evaluation TECHNIQUE: After the administration of intravenous contrast, 2.5 mm axial sections acquired from the mid-neck to the frontal sinuses, with coronal and sagittal reformats. For radiation dose reduction, the following was used: automated exposure control, adjustment of mA and/or kV according to patient size. COMPARISON: None. FINDINGS: Image quality: Excellent. Soft tissues: Right facial soft tissue swelling. No masses or fluid collections. No enlarged lymph nodes. Vascular: Visualized vascular structures appear patent throughout. Bony vascular foramina and canals appear normal. Bones: Facial bones appear intact, without fractures, erosions, or destruction. Visualized portions of the skull base and auditory canals also appear normal. Sinuses: Mild mucosal thickening of the right maxillary sinus. Mastoid air cells are aerated. IMPRESSION: 1. Right facial soft tissue swelling consistent with cellulitis. No subcutaneous fluid collections to suggest abscesses. 2. Mild right maxillary sinusitis. Dictated by: Ashwin Barney M.D. on 02/28/2022 at 8:08 Approved by: Ashwin Barney M.D. on 02/28/2022 at 8:11
[2022-02-28] MEDS: diphenhydrAMINE 50 MG/ML VIAL 25 MG IV (02:32)
[2022-02-28] MEDS: FAMOTIDINE 20 MG/2 ML VIAL IV ×3 (02:33→21:05)
[2022-02-28] MEDS: KETOROLAC 30 MG/ML VIAL 15 MG IV (02:35)
[2022-02-28] MEDS: dexAMETHasone 20 MG in SODIUM CHLORIDE 0.9% 50 ML 208 ML IV (02:35)
[2022-02-28 02:42] LABS: Add Manual Diff / Slide Review SLIDE REVIEW; Basophils Absolute Auto 100 /uL (0-100); Basophils Percent Auto 0.6 % (0-2); Eosinophils Absolute Auto 100 /uL (0-450); Eosinophils Percent Auto 0.6 % (2-4); Hemoglobin 12.7 g/dL (12.0-16.0); Lymphocytes Absolute Auto 700 /uL (1100-4500); Lymphocytes Percent Auto 7.9 % (25-40); Mean Corpuscular HGB Conc 29.5 % (30-36); Mean Corpuscular Hemoglobin 29.7 PG (26-34); Mean Corpuscular Volume 100.7 fL (80-100); Monocytes Absolute Auto 500 /uL (0-900); Monocytes Percent Auto 5.7 % (3-14); Neutrophils Absolute Auto 7200 /uL (1500-7000); Neutrophils Percent Auto 85.2 % (50-75); Platelet Count 49 X10^3/uL (150-400); Red Blood Cell Count 4.27 X10^6/uL (4.0-5.2); Red Cell Distribution Width 14.6 % (11.6-14.8); White Blood Cell Count 8.4 X10^3/uL (4.5-11.0)
[2022-02-28 02:44] LABS: Lactate (Lactic Acid) 0.8 mmol/L (0.7-2.1)
[2022-02-28 02:45] LABS: Alanine Aminotransferase 134 IU/L (<35); Albumin 4.8 g/dL (3.5-5.0); Albumin Globulin Ratio 1.3 (1.0-2.8); Alkaline Phosphatase 103 U/L (38-126); Aspartate Aminotransferase 151 IU/L (14-36); BUN Creatinine Ratio 19.1 (6-22); Bilirubin Total 4.8 mg/dL (0.2-1.3); Blood Urea Nitrogen 9 mg/dL (7-17); Calcium 8.5 mg/dL (8.4-10.2); Carbon Dioxide 24 mmol/L (22-32); Chloride 108 mmol/L (98-107); Estimated Glomerular Filt Rate > 60 mL/min (>60); Globulin 3.6 g/dL (1.7-4.1); Glucose 125 mg/dL (70-100); HEMOLYSIS < 15 (0-50); Potassium 3.7 mmol/L (3.4-5.1); Sodium 141 mmol/L (137-145); Total Protein 8.4 g/dL (6.3-8.2)
[2022-02-28] MEDS: SODIUM CHLORIDE 0.9% 1,000 ML 1000 ML IV (02:50)
[2022-02-28 03:04] LABS: Macrocytosis 1+; Platelet Estimate Decreased on smear; Polychromasia 2+
[2022-02-28 03:26] LABS: COVID19 -Nasal RAPID Negative (Negative)
[2022-02-28] MEDS: AMPICILLIN/SULBACTAM 3 GM 3 GM in SODIUM CHLORIDE 0.9% 100 ML IV ×4 (04:02→22:38)
[2022-02-28] MEDS: SODIUM CHLORIDE 0.9% 1,000 ML 125 ML IV ×2 (05:30→15:06)
--- NOTE | 2022-02-28 08:35 | PM.HP.1 ---
History of Present Illness History of Present Illness Date Patient Seen: 02/28/22 Time Patient Seen: 08:10 Chief complaint: ALLERGIC REACTION ON FACE SWOLLEN Narrative: Pt is a 46yo woman with autoimmune hemolytic anemia who presented with facial swelling. The pt reports that on 02/26 she had an oral procedure done by her dentist to correct a crown on her right upper premolar. Later that day, she had significant pain and mild swelling. She was prescribed Augmentin to take as an outpatient. The pts swelling progressed, and last night she woke with rather severe swelling of her lips and right cheek. She reports relatively mild pain. She denies any fevers, chills, nausea, abdominal pain. She has not felt and sensation of drainage into her mouth. She denies any difficulty with swallowing or breathing. She presented to the ED due to the severity of swelling. In the ED, lab work was obtained that was unrevealing other than an elevation of her liver enzymes. Facial CT showed likely cellulitis, but no evidence of abscess. She received Famotidine and Dexamethasone for possible allergic reaction, and Unasyn for infection. Patient History Medical History (Updated 02/28/22 @ 03:59 by Jose Jacob DO) Anemia Surgical History Anesthesia Status post laparoscopic cholecystectomy (~12/2013) Family & Social History Family History Mother Age: 64 Diabetes mellitus Social History: household members family Prior Living Arrangements Apartment/Condo Safety & Behavioral: Feels Safe in Current Yes Environment Tobacco & Substance use: Smoking Status Never smoker alcohol intake current alcohol intake frequency 0-2 drinks per day Substance Use Type does not use Meds Home Medications and Allergies Home Medications Medication Instructions Recorded Confirmed Type No Known Home Medications 08/11/21 08/11/21 History Allergies Allergy/AdvReac Type Severity Reaction Status Date / Time No Known Drug Allergies Allergy Verified 08/11/21 11:44 Exam Vital Signs (past 8 hours): - 02/28/22 02:15 02/28/22 02:29 02/28/22 02:30 Temperature 98 F Pulse Rate 114 H 108 H 111 H Respiratory Rate 20 Blood Pressure 145/79 H Pulse Oximetry 92 91 90 L 02/28/22 03:00 02/28/22 03:31 02/28/22 03:33 Temperature Pulse Rate 108 H 106 H 106 H Respiratory Rate Blood Pressure 139/66 Pulse Oximetry 91 92 91 02/28/22 04:00 02/28/22 04:50 Temperature 98.9 F Pulse Rate 104 H 107 H Respiratory Rate 18 Blood Pressure 130/70 Pulse Oximetry 90 L 93 Oxygen Delivery Method Room Air Oxygen Flow Rate 0 Narrative Exam Narrative: Gen: NAD, sitting comfortably in bed, speaking easily in complete sentences, no issues with secretion management HEENT: significant swelling of right cheek and upper lip, no erythema, mildly increased warmth, no palpable abnormalities/masses of cheek or along gum line, OP pink without erythema CV: RRR, no murmurs Resp: clear to auscultation bilaterally Abd: soft, nontender, nondistended, normoactive bowel sounds Ext: no edema Neuro: no gross deficits Objective Labs Result Diagrams: 02/28/22 02:25 02/28/22 02:25 Labs: Laboratory Results - last 24 hr 02/28/22 02/28/22 02/28/22 02:25 02:25 02:25 WBC 8.4 RBC 4.27 Hgb 12.7 Hct 43.0 MCV 100.7 H MCH 29.7 MCHC 29.5 L RDW 14.6 Plt Count 49 L Neut % (Auto) 85.2 H Lymph % (Auto) 7.9 L [place] % (Auto) 5.7 Eos % (Auto) 0.6 L Baso % (Auto) 0.6 Neut # (Auto) 7200 H Lymph # (Auto) 700 L [place] # (Auto) 500 Eos # (Auto) 100 Baso # (Auto) 100 Platelet Estimate Decreased on smear RBC Morphology See below Polychromasia 2+ H Macrocytosis 1+ H Sodium 141 Potassium 3.7 Chloride 108 H Carbon Dioxide 24 BUN 9 Creatinine 0.47 L Estimated GFR > 60 BUN/Creatinine Ratio 19.1 Glucose 125 H Lactate 0.8 Calcium 8.5 Total Bilirubin 4.8 H AST 151 H ALT 134 H Alkaline Phosphatase 103 Total Protein 8.4 H Albumin 4.8 Globulin 3.6 Albumin/Globulin Ratio 1.3 SARS-CoV-2 (PCR) 02/28/22 02:50 WBC RBC Hgb Hct MCV MCH MCHC RDW Plt Count Neut % (Auto) Lymph % (Auto) [place] % (Auto) Eos % (Auto) Baso % (Auto) Neut # (Auto) Lymph # (Auto) [place] # (Auto) Eos # (Auto) Baso # (Auto) Platelet Estimate RBC Morphology Polychromasia Macrocytosis Sodium Potassium Chloride Carbon Dioxide BUN Creatinine Estimated GFR BUN/Creatinine Ratio Glucose Lactate Calcium Total Bilirubin AST ALT Alkaline Phosphatase Total Protein Albumin Globulin Albumin/Globulin Ratio SARS-CoV-2 (PCR) Negative Assessment & Plan Assessment & Plan narrative: Pt is a 46yo woman with autoimmune hemolytic anemia who presented with facial swelling after dental procedure. No evidence of abscess. Most consistent with allergic reaction vs cellulitis. 1) Facial swelling: No evidence of airway compromise. - Continue Dexamethasone and Famotidine for now - Continue Unasyn - Continue mIVF until PO intake adequate 3) Elevated liver enzymes: - Continue to trend as inpatient - May need additional work-up as an outpatient FEN: General diet Code: Full DVT ppx: Pt ambulatory. SCDs. Dispo: Pending improvement in symptoms. Possibly later today, if not likely tomorrow morning. Time Spent With Patient Critical Care time: I spent a total of [] minutes of critical care time on this patient's care today; this time is exclusive of procedural time.
--- NOTE | 2022-02-28 09:31 | CM.DANOTE ---
DCP: Case received, EMR reviewed and met with patient. Daughter, Alejandrina, was at bedside. Introduced self and role. Was able to obtain information regarding patient's baseline activity status prior to hospitalization. DCP assessment completed with information currently available. Patient is a 46 year old female who admitted early this morning to the care of the hospitalist team. PCP: Dr. Smith. Payer: confirmed: [facility]. Patient came to the hospital via private vehicle secondary to having right facial swelling. Patient had recently been to the dentist due to pain, and had some work done. She was sent home on Augmentin, and had taken 2 doses. Her swelling and pain had gotten worse, and came here to the hospital. Patient holds current diagnosis of cellulitis of her face. Met with patient in her room. She is alert and oriented. Daughter at bedside. She continued to note swelling to her face. Daughter, Alejandrina, in the room. Patient is independent at her baseline, and lives here in [place] with family. She is employed at [employer] here in [facility]. P: DCP to continue to follow for any needs. Patient should be able to go home when she is deemed medically stable. Jami Reaves RN/[employer] Representatives Discharge Planning/Care Management Advanced directive, confirm from FAMILY Start: 02/28/22 04:58 Freq: Q24H Status: Active Protocol: Document 02/28/22 04:58 CS (Rec: 02/28/22 05:21 CS [id number]) Advance Directive, confirm on record Time 05:21 Person contacted patient Copy received No CM Discharge Assessment Start: 02/28/22 09:30 Freq: Status: Active Protocol: Document 02/28/22 09:30 (Rec: 02/28/22 09:31 [email or web address]) Discharge Planning Assessment Assigned [employer] Worker Jami Reaves RN/[employer] Representatives Advance Directives? No Advance Directives on File No History Provided By Patient,Family Member,Medical Record Prior Living Arrangements Apartment/Condo Household Members family Type of transporation used prior to Drives own vehicle admit Independent with ADL's Yes Is patient alert and oriented? Yes Caregiver for Another No Barriers to Discharge No Comment Patient has supportive daughter with her in the room . Discharge Plan Home Transportation Arrangement Family Referrals Initiated None needed Whiteboard Updated in Patient Room with Yes name and ext. # of [employer] Worker Review Status In Process Next Review Type Continued Stay Review
[2022-02-28] MEDS: IBUPROFEN 600 MG TABLET PO ×3 (13:21→23:55)
[2022-03-01] MEDS: SODIUM CHLORIDE 0.9% 1,000 ML 125 ML IV ×2 (01:08→10:14)
[2022-03-01] MEDS: diphenhydrAMINE 25 MG TABLET 50 MG PO (02:34)
[2022-03-01] MEDS: AMPICILLIN/SULBACTAM 3 GM 3 GM in SODIUM CHLORIDE 0.9% 100 ML IV ×2 (04:33→09:55)
[2022-03-01] MEDS: ACETAMINOPHEN 325 MG TABLET 650 MG PO (04:35)
[2022-03-01 04:39] VITALS: BP 130/58; PULSE 103; RESP 18; TEMP 37.3; O2SAT 92
--- NOTE | 2022-03-01 04:47 | PC.NURSE ---
Pt complained of swelling/edema in the R eye and cheek area. Called Dr, received order for 50 mg benedryl, at 02:15. Pt complained of mild pain in cheek at this time. Pt awoke at 0430 and complained of pain in cheek, gave tylenol for pain and ice pack. Pt had 4th dose of Unasyn at 0435. Vitals taken at this time. Pt BP and HR up from previous vitals for the evening. Will continue to monitor progress.
[2022-03-01] MEDS: IBUPROFEN 600 MG TABLET PO ×2 (05:33→11:07)
[2022-03-01 08:08] VITALS: BP 124/54; PULSE 100; RESP 18; TEMP 36.9; O2SAT 92
[2022-03-01] MEDS: FAMOTIDINE 20 MG/2 ML VIAL IV (09:13)
--- NOTE | 2022-03-01 10:06 | P.PN_ITS ---
Subjective Subjective Date Patient Seen: 03/01/22 Time Patient Seen: 10:06 Exam Vital Signs (past 8 hours): - 03/01/22 04:39 03/01/22 08:08 Temperature 99.1 F 98.4 F Pulse Rate 103 H 100 H Respiratory Rate 18 18 Blood Pressure 130/58 L 124/54 L Pulse Oximetry 92 92 Oxygen Delivery Method Room Air Oxygen Flow Rate 0 Objective Labs Result Diagrams: 02/28/22 02:25 02/28/22 02:25 [facility] Medical History (Updated 02/28/22 @ 03:59 by Jose Jacob DO) Anemia Surgical History Anesthesia Status post laparoscopic cholecystectomy (~12/2013) Family History Mother Age: 64 Diabetes mellitus Social History household members: family Smoking Status: Never smoker alcohol intake: current substance use type: does not use Assessment & Plan Time Spent With Patient Critical Care time: I spent a total of [] minutes of critical care time on this patient's care today; this time is exclusive of procedural time.
[2022-03-01 11:21] VITALS: BP 112/58; PULSE 96; RESP 16; TEMP 36.8; O2SAT 92
--- NOTE | 2022-03-01 11:43 | PM.DS.1 ---
History of Present Illness History of Present Illness Date Patient Seen: 03/01/22 Time Patient Seen: 11:43 Chief complaint: ALLERGIC REACTION ON FACE SWOLLEN Narrative: Patient is a 46yo woman with autoimmune hemolytic anemia who presented with facial swelling.? The patient reports that on 02/26 she had an oral procedure done by her dentist to correct a crown on her right upper premolar.? Later that day, she had significant pain and mild swelling.? She was prescribed Augmentin to take as an outpatient.? The patient's swelling progressed, and last night she woke with rather severe swelling of her lips and right cheek.? She reports relatively mild pain.? She denies any fevers, chills, nausea, abdominal pain.? She has not felt and sensation of drainage into her mouth.? She denies any difficulty with swallowing or breathing.? She presented to the ED due to the severity of swelling. In the ED, lab work was obtained that was unrevealing other than an elevation of her liver enzymes.? Facial CT showed likely cellulitis, but no evidence of abscess.? She received Famotidine and Dexamethasone for possible allergic reaction, and Unasyn for infection.? Discharge Providers Provider Date of admission: 02/28/22 04:04 Discharge Date: 03/01/22 Primary care physician: Catalina Smith MD Discharge provider: Shalonda Luis MD Summary Hospital Course Discharge Diagnosis: 1. Facial swelling and angioedema secondary to allergic reaction vs. cellulitis 2. Elevated liver enzymes Hospital Course: Patient has had improvement in her facial and angioedema since admission. Denies difficulty swallowing or pruritus. Tolerating full diet with no nausea or vomiting. Ambulating independently. Plan will be to discharge today on extended course of oral antibiotics in the case that this is cellulitis as well as prednisone in the case that this is inflammatory. On day of discharge, patient is afebrile with stable vital signs throughout. Follow-up with PCP in the next week and with dentist as scheduled next week as well. Elevated LFT workup as an outpatient. Time spent on Discharge and Coordination of post-hospital care: 35 minutes Status at Discharge Cognitive/behavioral status at discharge: at baseline, oriented Functional status at discharge: independent ambulation Overall status at discharge: patient is progressing back to baseline Exam Vital Signs (past 8 hours): - 03/01/22 04:39 03/01/22 08:08 03/01/22 11:21 Temperature 99.1 F 98.4 F 98.3 F Pulse Rate 103 H 100 H 96 H Respiratory Rate 18 18 16 Blood Pressure 130/58 L 124/54 L 112/58 L Pulse Oximetry 92 92 92 Oxygen Delivery Method Room Air Oxygen Flow Rate 0 Narrative Exam Narrative: GENERAL: Alert and oriented, appearing stated age and in no acute distress. HEENT: Head normocephalic/atraumatic. Extraocular movements intact. Bilateral facial swelling, left greater than right. Very minimal angioedema. LUNGS: Clear to ausculation bilaterally, no wheezes, rhonchi or rales. CV: Normal S1 and S2 with regular rate and rhythm, no audible murmurs, rubs or gallops. ABDOMEN: Soft, non-tender, non-distended, no organomegaly. Positive bowel sounds. EXTREMITIES: No clubbing, cyanosis, or edema. NEURO: Cranial nerves II through XII grossly intact, no focal deficits. PSYCH: Alert and oriented x 3. SKIN: No concerning lesions. Objective Labs Result Diagrams: 02/28/22 02:25 02/28/22 02:25 [facility] Medical History (Updated 02/28/22 @ 03:59 by Jose Jacob DO) Anemia Surgical History Anesthesia Status post laparoscopic cholecystectomy (~12/2013) Family History Mother Age: 64 Diabetes mellitus Social History household members: family Smoking Status: Never smoker alcohol intake: current substance use type: does not use Discharge Plan Discharge Plan Patient Disposition: Home Provider Discharge Comment: Follow-up with Dr. Smith next week. Call on Thursday to make appointment. Discharge orders & Medications Prescriptions: New ibuprofen 600 mg Tablet 600 mg PO Q6HR Qty: 45 0RF prednisone 50 mg tablet 50 mg PO DAILY Qty: 5 0RF clindamycin HCl 300 mg capsule 300 mg PO TID Qty: 30 0RF Follow up/Referrals: Catalina Smith MD [Primary Care Provider] - Diet/Activity/Treatments Diet: Diet as Tolerated Activity: As tolerated. Skin/Wound/Dressing Care Report to your healthcare provider any signs of infection, such as:: chills, fever, increased pain, unusual drainage and unusual redness Visit Report/Discharge Packet Instructions: Cellulitis, DI for Tooth Abscess, How to Prevent Falls, Prednisone Discharge Data Primary Care Provider: Catalina Smith Attending Provider: Catalina Smith
--- NOTE | 2022-03-01 12:21 | PC.NURSE ---
Day shift: Pt left unit at approx 1215. She wanted to walk to the car. Her Daughter is with her. [employer] went with for ety as well. Paperwork signed and all questions answered. Encouraged to f/u with PCP and take all medications as directed. Pt has all personal belongings.
== END 2022-03-01 12:23 | disposition home or self-care (01) ==
LOC: ED 02:25 → AC 04:05
PROVIDERS: Admitting Provider Family Medicine; Emergency Provider Emergency Medicine; PCP Family Medicine; Visit Provider Family Medicine
DX: T78.3XXA Angioneurotic edema, initial encounter (principal); K08.89 Other specified disorders of teeth and supporting structures; D59.10 Autoimmune hemolytic anemia, unspecified; R74.01 Elevation of levels of liver transaminase levels; Z20.822 Contact with and (suspected) exposure to COVID-19
CPT/HCPCS: 36415; 70487; 80053; 81003; 83605; 85025; 87040; 87635; 96365; 96366; 96367; 96375; 96376; 99219; 99284; C9803; G0378; J0295; J1100; J1200; J1885; Q9967

== ENCOUNTER → 2022-03-12 11:23 | Outpatient (CLI) | payer OTHER, SELFPAY ==
[2022-02-28 04:27] VITALS: BMI 23.6
== END ==
PROVIDERS: PCP Family Medicine; Visit Provider Physician Assistant
DX: R21 Rash and other nonspecific skin eruption (principal)
CPT/HCPCS: 87070

== ENCOUNTER 2023-01-14 19:58 | Inpatient (IN) | payer OTHER, SELFPAY ==
[2022-02-28 04:27] VITALS: BMI 23.6
[2023-01-14] VITALS (13 sets, daily range): BP systolic 125–155; BP diastolic 58–67; PULSE 103–146; RESP 20–31; TEMP 36.6–39.6; O2SAT 90–93; BMI 24.5
[2023-01-14] MEDS: SODIUM CHLORIDE 0.9% 1,000 ML 1000 ML IV ×2 (20:28→22:07)
[2023-01-14] MEDS: ONDANSETRON 4 MG/2 ML INJ IV ×2 (20:28→21:47)
[2023-01-14 20:35] LABS: Alanine Aminotransferase 50 IU/L (<35); Albumin 4.7 g/dL (3.5-5.0); Albumin Globulin Ratio 1.2 (1.0-2.8); Alkaline Phosphatase 91 U/L (38-126); Aspartate Aminotransferase 102 IU/L (14-36); BUN Creatinine Ratio 14.3 (6-22); Blood Urea Nitrogen 6 mg/dL (7-17); Calcium 8.4 mg/dL (8.4-10.2); Carbon Dioxide 27 mmol/L (22-32); Chloride 101 mmol/L (98-107); Estimated Glomerular Filt Rate > 60 mL/min (>60); Globulin 3.8 g/dL (1.7-4.1); Glucose 108 mg/dL (70-100); HEMOLYSIS < 15 (0-50); Lipase 116 U/L (23-300); Potassium 3.4 mmol/L (3.4-5.1); Sodium 136 mmol/L (137-145); Total Protein 8.5 g/dL (6.3-8.2)
[2023-01-14 20:36] LABS: Add Manual Diff / Slide Review SLIDE REVIEW; Basophils Absolute Auto 0 /uL (0-100); Basophils Percent Auto 0.5 % (0-2); Eosinophils Absolute Auto 100 /uL (0-450); Eosinophils Percent Auto 1.4 % (2-4); Hematocrit 38.9 % (36-46); Hemoglobin 11.3 g/dL (12.0-16.0); Lymphocytes Absolute Auto 900 /uL (1100-4500); Lymphocytes Percent Auto 15.6 % (25-40); Mean Corpuscular HGB Conc 29.1 % (30-36); Mean Corpuscular Hemoglobin 28.7 PG (26-34); Mean Corpuscular Volume 98.7 fL (80-100); Monocytes Absolute Auto 200 /uL (0-900); Monocytes Percent Auto 2.6 % (3-14); Neutrophils Absolute Auto 4800 /uL (1500-7000); Neutrophils Percent Auto 79.9 % (50-75); Platelet Count 69 X10^3/uL (150-400); Red Blood Cell Count 3.94 X10^6/uL (4.0-5.2); Red Cell Distribution Width 15.4 % (11.6-14.8)
[2023-01-14 20:54] LABS: Anisocytosis 1+; Macrocytosis 1+; Platelet Estimate Decreased on smear
[2023-01-14 20:55] LABS: Poikilocytosis 1+; Polychromasia 1+
--- NOTE | 2023-01-14 21:31 | ED_ITS ---
HPI - Abdominal Pain <DO Tory Herman Last Filed: 01/16/23 03:22> General Chief Complaint: Abdominal Pain Stated Complaint: covid +, abd pain, vomiting Time Seen by Provider: 01/14/23 21:26 Source: patient Mode of arrival: Ambulatory History of Present Illness HPI narrative: Patient is a 47-year-old female with history of autoimmune hemolytic anemia presenting today with right upper quadrant pain and vomiting. She reports that 5 days ago she tested positive for COVID she was not feeling well however yest erday she was improving. And today she started vomiting. She has not had fever. She denies chest pain and shortness of breath Related Data Home Medications Medication Instructions Recorded Confirmed No Known Home Medications 01/15/23 01/15/23 Allergies Allergy/AdvReac Type Severity Reaction Status Date / Time No Known Drug Allergies Allergy Verified 03/12/22 11:02 Review of Systems <DO Tory Herman Last Filed: 01/16/23 03:22> Review of Systems ROS Unobtainable: All systems reviewed & are unremarkable except as noted in HPI and below Patient History <DO Tory Herman Last Filed: 01/16/23 03:22> Medical History (Updated 01/15/23 @ 13:42 by Lourdes Montiel RN) Anemia Chronic hemolytic anemia 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) Splenomegaly Thrombocytopenia (05/15/11) Surgical History Anesthesia Status post laparoscopic cholecystectomy (~12/2013) Family History Mother Age: 65 Diabetes mellitus Social History household members: family Smoking Status: Never smoker alcohol intake: current substance use type: does not use Smoking Status: Never smoker alcohol intake frequency: 0-2 drinks per day Substance Use Type: does not use Exam <DO Tory Herman Last Filed: 01/16/23 03:22> Initial Vital Signs Initial Vital Signs: Vital Signs Temperature 99.9 F H 01/14/23 20:02 Pulse Rate 103 H 01/14/23 20:02 Respiratory Rate 20 01/14/23 20:02 Blood Pressure 126/58 L 01/14/23 20:02 Pulse Oximetry 92 01/14/23 20:02 Oxygen Delivery Method Room Air 01/14/23 20:02 GENERAL: Jaundice 47-year-old female dry heaving appears in pain and uncomfortable HEENT: Head atraumatic,EOMI, pupils reactive, face symmetric, [moist] mucous membranes CARDIOVASCULAR: Regular rate and rhythm without murmurs, rubs or gallops. RESPIRATORY: Breath sounds equal bilaterally, no wheezes rales or rhonchi. ABDOMEN: Soft, tender right upper quadrant pain no guarding no rebound abdomen is nondistended : No CVA tenderness EXTREMITIES: Normal range of motion, no clubbing or edema. Neurovascularly intact NEUROLOGICAL: Alert and oriented x4 SKIN: Warm, dry, no laceration, no petechiae, no rashes or lesions. <Gus Garcia MD - Last Filed: 01/15/23 14:06> Initial Vital Signs Initial Vital Signs: Vital Signs Temperature 99.9 F H 01/14/23 20:02 Pulse Rate 103 H 01/14/23 20:02 Respiratory Rate 20 01/14/23 20:02 Blood Pressure 126/58 L 01/14/23 20:02 Pulse Oximetry 92 01/14/23 20:02 Oxygen Delivery Method Room Air 01/14/23 20:02 Course <Sari Salinas DO - Last Filed: 01/16/23 03:22> Orders Ordered: Acetaminophen (Acetaminophen 325 Mg Tablet) 650 mg PO Q6H PRN PRN Reason: Fever/Mild Pain (1-3) Last Admin: 01/15/23 20:55 Dose: 650 mg Documented By: MS Dexamethasone (Dexamethasone 10 Mg/Ml Vial) 6 mg IV DAILY EARLINE Sodium Chloride (Normal Saline 0.9%) 1,000 mls @ 100 mls/hr IV CONT EARLINE Last Admin: 01/15/23 11:19 Dose: 100 mls/hr Documented By: CLL Remdesivir 100 mg/ Sodium (Chloride) 250 mls @ 250 mls/hr IV DAILY EARLINE Stop: 01/24/23 09:59 Piperacillin Sod/Tazobactam (Sod 3.375 gm/ Sodium Chloride) 100 mls @ 25 mls/hr IV Q8H EARLINE Last Admin: 01/15/23 20:54 Dose: 25 mls/hr Documented By: MS Naloxone HCl (Naloxone 0.4 Mg/Ml Vial) 0.2 mg IV Q2MIN PRN PRN Reason: Opiate Reversal Ondansetron HCl (Ondansetron 4 Mg/2 Ml Inj) 4 mg IV Q6HR EARLINE Last Admin: 01/16/23 01:29 Dose: Not Given Documented By: Admin: 01/15/23 17:55 Dose: Not Given Documented By: Admin: 01/15/23 12:18 Dose: Not Given Documented By: RENETTA Oxycodone HCl (Oxycodone Ir 5 Mg Tablet) 5 mg PO Q3H PRN PRN Reason: Pain, Moderate (4-6) Last Admin: 01/15/23 18:22 Dose: 5 mg Documented By: RENETTA Oxycodone HCl (Oxycodone Ir 10 Mg Tablet) 10 mg PO Q3H PRN PRN Reason: Pain, Severe (7-10) Discontinued Medications Acetaminophen (Acetaminophen 325 Mg Tablet) 975 mg PO NOW ONE Stop: 01/14/23 22:51 Last Admin: 01/14/23 23:02 Dose: 975 mg Documented By: MIKA Acetaminophen (Acetaminophen 325 Mg Tablet) 975 mg PO NOW ONE Stop: 01/15/23 08:21 Last Admin: 01/15/23 08:32 Dose: 975 mg Documented By: YESSICA Dexamethasone (Dexamethasone 10 Mg/Ml Vial) 6 mg IV NOW ONE Stop: 01/15/23 00:11 Last Admin: 01/15/23 01:30 Dose: 6 mg Documented By: WANDA Diltiazem HCl (Diltiazem 5 Mg/Ml Sdv) 10 mg IV NOW ONE Stop: 01/14/23 22:32 Last Admin: 01/14/23 22:34 Dose: 10 mg Documented By: GAUTAM Hydromorphone HCl (Hydromorphone 0.5 Mg Inj) 0.5 mg IV NOW ONE Stop: 01/14/23 21:37 Last Admin: 01/14/23 21:47 Dose: 0.5 mg Documented By: GAUTAM Sodium Chloride (Normal Saline 0.9%) 1,000 mls @ 1,000 mls/hr IV BOLUS ONE Stop: 01/14/23 21:19 Last Infusion: 01/14/23 21:20 Dose: 0 mls/hr Documented By: Admin: 01/14/23 20:28 Dose: 1,000 mls/hr Documented By: MIKA Sodium Chloride (Normal Saline 0.9%) 1,000 mls @ 1,000 mls/hr IV BOLUS ONE Stop: 01/14/23 23:01 Last Infusion: 01/14/23 23:35 Dose: 0 mls/hr Documented By: Admin: 01/14/23 22:07 Dose: 1,000 mls/hr Documented By: GAUTAM Lactated Ringer's (Lactated Ringers) 3,900 mls @ 1,300 mls/hr 30 ml/kg infuse over 3 hr (3900 ml) IV NOW ONE Stop: 01/15/23 02:18 Last Infusion: 01/15/23 01:37 Dose: 0 mls/hr Documented By: Admin: 01/14/23 23:29 Dose: 1,300 mls/hr Documented By: WANDA Cefepime HCl 2 gm/ Sodium (Chloride) 100 mls @ 200 mls/hr IV NOW ONE Stop: 01/15/23 00:03 Last Infusion: 01/15/23 00:50 Dose: 0 mls/hr Documented By: Admin: 01/15/23 00:12 Dose: 200 mls/hr Documented By: WANDA Remdesivir 200 mg/ Sodium (Chloride) 250 mls @ 250 mls/hr IV NOW ONE Stop: 01/15/23 12:00 Last Infusion: 01/15/23 13:08 Dose: 0 mls/hr Documented By: Admin: 01/15/23 11:43 Dose: 250 mls/hr Documented By: RENETTA Piperacillin Sod/Tazobactam (Sod 3.375 gm/ Sodium Chloride) 100 mls @ 25 mls/hr IV Q8H [facility] Piperacillin Sod/Tazobactam (Sod 4.5 gm/ Sodium Chloride) 100 mls @ 200 mls/hr IV NOW ONE Stop: 01/15/23 12:16 Last Admin: 01/15/23 13:07 Dose: 200 mls/hr Documented By: RENETTA Ketorolac Tromethamine (Ketorolac 30 Mg/Ml Vial) 15 mg IV NOW ONE Stop: 01/14/23 20:21 Last Admin: 01/14/23 21:43 Dose: Not Given Documented By: GAUTAM Ondansetron HCl (Ondansetron 4 Mg Odt) 4 mg PO NOW PRN PRN Reason: Nausea And Vomiting Ondansetron HCl (Ondansetron 4 Mg/2 Ml Inj) 4 mg IV NOW PRN PRN Reason: Nausea And Vomiting Last Admin: 01/14/23 20:28 Dose: 4 mg Documented By: MIKA Ondansetron HCl (Ondansetron 4 Mg/2 Ml Inj) 4 mg IV NOW ONE Stop: 01/14/23 21:37 Last Admin: 01/14/23 21:47 Dose: 4 mg Documented By: GAUTAM Potassium Chloride (Potassium Chloride 20 Meq Tab) 40 meq PO Q6H [facility] Stop: 01/15/23 18:01 Last Admin: 01/15/23 18:22 Dose: 40 meq Documented By: Admin: 01/15/23 13:07 Dose: 40 meq Documented By: RENETTA Vital Signs Vital signs: Vital Signs - 8 hr 01/15/23 06:30 01/15/23 06:30 01/15/23 07:00 Pulse Rate 119 H Respiratory Rate 26 H Blood Pressure 106/52 L 108/61 Pulse Oximetry 93 Oxygen Delivery Method 01/15/23 07:00 01/15/23 07:30 01/15/23 07:30 Pulse Rate 124 H 118 H Respiratory Rate 26 H Blood Pressure 109/56 L Pulse Oximetry 95 93 Oxygen Delivery Method 01/15/23 08:00 01/15/23 08:01 01/15/23 08:01 Pulse Rate 126 H 121 H Respiratory Rate 29 H 30 H Blood Pressure 121/82 Pulse Oximetry 93 93 Oxygen Delivery Method Room Air 01/15/23 08:30 01/15/23 08:30 01/15/23 09:00 Pulse Rate 117 H Respiratory Rate 31 H Blood Pressure 121/59 L 114/58 L Pulse Oximetry 93 Oxygen Delivery Method 01/15/23 09:00 01/15/23 09:30 01/15/23 09:30 Pulse Rate 114 H 113 H Respiratory Rate 32 H Blood Pressure 113/58 L Pulse Oximetry 93 93 Oxygen Delivery Method 01/15/23 10:00 01/15/23 10:00 Pulse Rate 105 H Respiratory Rate 25 H Blood Pressure 122/59 L Pulse Oximetry 93 Oxygen Delivery Method <Gus Garcia MD - Last Filed: 01/15/23 14:06> Orders Ordered: Acetaminophen (Acetaminophen 325 Mg Tablet) 650 mg PO Q6H PRN PRN Reason: Fever/Mild Pain (1-3) Last Admin: 01/15/23 20:55 Dose: 650 mg Documented By: Dexamethasone (Dexamethasone 10 Mg/Ml Vial) 6 mg IV DAILY [facility] Sodium Chloride (Normal Saline 0.9%) 1,000 mls @ 100 mls/hr IV CONT [facility] Last Admin: 01/15/23 11:19 Dose: 100 mls/hr Documented By: RENETTA Remdesivir 100 mg/ Sodium (Chloride) 250 mls @ 250 mls/hr IV DAILY [facility] Stop: 01/24/23 09:59 Piperacillin Sod/Tazobactam (Sod 3.375 gm/ Sodium Chloride) 100 mls @ 25 mls/hr IV Q8H [facility] Last Admin: 01/15/23 20:54 Dose: 25 mls/hr Documented By: Naloxone HCl (Naloxone 0.4 Mg/Ml Vial) 0.2 mg IV Q2MIN PRN PRN Reason: Opiate Reversal Ondansetron HCl (Ondansetron 4 Mg/2 Ml Inj) 4 mg IV Q6HR [facility] Last Admin: 01/16/23 01:29 Dose: Not Given Documented By: Admin: 01/15/23 17:55 Dose: Not Given Documented By: Admin: 01/15/23 12:18 Dose: Not Given Documented By: RENETTA Oxycodone HCl (Oxycodone Ir 5 Mg Tablet) 5 mg PO Q3H PRN PRN Reason: Pain, Moderate (4-6) Last Admin: 01/15/23 18:22 Dose: 5 mg Documented By: RENETTA Oxycodone HCl (Oxycodone Ir 10 Mg Tablet) 10 mg PO Q3H PRN PRN Reason: Pain, Severe (7-10) Discontinued Medications Acetaminophen (Acetaminophen 325 Mg Tablet) 975 mg PO NOW ONE Stop: 01/14/23 22:51 Last Admin: 01/14/23 23:02 Dose: 975 mg Documented By: MIKA Acetaminophen (Acetaminophen 325 Mg Tablet) 975 mg PO NOW ONE Stop: 01/15/23 08:21 Last Admin: 01/15/23 08:32 Dose: 975 mg Documented By: YESSICA Dexamethasone (Dexamethasone 10 Mg/Ml Vial) 6 mg IV NOW ONE Stop: 01/15/23 00:11 Last Admin: 01/15/23 01:30 Dose: 6 mg Documented By: WADNA Diltiazem HCl (Diltiazem 5 Mg/Ml Sdv) 10 mg IV NOW ONE Stop: 01/14/23 22:32 Last Admin: 01/14/23 22:34 Dose: 10 mg Documented By: GAUTAM Hydromorphone HCl (Hydromorphone 0.5 Mg Inj) 0.5 mg IV NOW ONE Stop: 01/14/23 21:37 Last Admin: 01/14/23 21:47 Dose: 0.5 mg Documented By: GAUTAM Sodium Chloride (Normal Saline 0.9%) 1,000 mls @ 1,000 mls/hr IV BOLUS ONE Stop: 01/14/23 21:19 Last Infusion: 01/14/23 21:20 Dose: 0 mls/hr Documented By: Admin: 01/14/23 20:28 Dose: 1,000 mls/hr Documented By: MIKA Sodium Chloride (Normal Saline 0.9%) 1,000 mls @ 1,000 mls/hr IV BOLUS ONE Stop: 01/14/23 23:01 Last Infusion: 01/14/23 23:35 Dose: 0 mls/hr Documented By: Admin: 01/14/23 22:07 Dose: 1,000 mls/hr Documented By: GAUTAM Lactated Ringer's (Lactated Ringers) 3,900 mls @ 1,300 mls/hr 30 ml/kg infuse over 3 hr (3900 ml) IV NOW ONE Stop: 01/15/23 02:18 Last Infusion: 01/15/23 01:37 Dose: 0 mls/hr Documented By: Admin: 01/14/23 23:29 Dose: 1,300 mls/hr Documented By: WANDA Cefepime HCl 2 gm/ Sodium (Chloride) 100 mls @ 200 mls/hr IV NOW ONE Stop: 01/15/23 00:03 Last Infusion: 01/15/23 00:50 Dose: 0 mls/hr Documented By: Admin: 01/15/23 00:12 Dose: 200 mls/hr Documented By: WANDA Remdesivir 200 mg/ Sodium (Chloride) 250 mls @ 250 mls/hr IV NOW ONE Stop: 01/15/23 12:00 Last Infusion: 01/15/23 13:08 Dose: 0 mls/hr Documented By: Admin: 01/15/23 11:43 Dose: 250 mls/hr Documented By: RENETTA Piperacillin Sod/Tazobactam (Sod 3.375 gm/ Sodium Chloride) 100 mls @ 25 mls/hr IV Q8H [facility] Piperacillin Sod/Tazobactam (Sod 4.5 gm/ Sodium Chloride) 100 mls @ 200 mls/hr IV NOW ONE Stop: 01/15/23 12:16 Last Admin: 01/15/23 13:07 Dose: 200 mls/hr Documented By: RENETTA Ketorolac Tromethamine (Ketorolac 30 Mg/Ml Vial) 15 mg IV NOW ONE Stop: 01/14/23 20:21 Last Admin: 01/14/23 21:43 Dose: Not Given Documented By: GAUTAM Ondansetron HCl (Ondansetron 4 Mg Odt) 4 mg PO NOW PRN PRN Reason: Nausea And Vomiting Ondansetron HCl (Ondansetron 4 Mg/2 Ml Inj) 4 mg IV NOW PRN PRN Reason: Nausea And Vomiting Last Admin: 01/14/23 20:28 Dose: 4 mg Documented By: MIKA Ondansetron HCl (Ondansetron 4 Mg/2 Ml Inj) 4 mg IV NOW ONE Stop: 01/14/23 21:37 Last Admin: 01/14/23 21:47 Dose: 4 mg Documented By: GAUTAM Potassium Chloride (Potassium Chloride 20 Meq Tab) 40 meq PO Q6H [facility] Stop: 01/15/23 18:01 Last Admin: 01/15/23 18:22 Dose: 40 meq Documented By: Admin: 01/15/23 13:07 Dose: 40 meq Documented By: RENETTA Vital Signs Vital signs: Vital Signs - 8 hr 01/15/23 06:30 01/15/23 06:30 01/15/23 07:00 Pulse Rate 119 H Respiratory Rate 26 H Blood Pressure 106/52 L 108/61 Pulse Oximetry 93 Oxygen Delivery Method 01/15/23 07:00 01/15/23 07:30 01/15/23 07:30 Pulse Rate 124 H 118 H Respiratory Rate 26 H Blood Pressure 109/56 L Pulse Oximetry 95 93 Oxygen Delivery Method 01/15/23 08:00 01/15/23 08:01 01/15/23 08:01 Pulse Rate 126 H 121 H Respiratory Rate 29 H 30 H Blood Pressure 121/82 Pulse Oximetry 93 93 Oxygen Delivery Method Room Air 01/15/23 08:30 01/15/23 08:30 01/15/23 09:00 Pulse Rate 117 H Respiratory Rate 31 H Blood Pressure 121/59 L 114/58 L Pulse Oximetry 93 Oxygen Delivery Method 01/15/23 09:00 01/15/23 09:30 01/15/23 09:30 Pulse Rate 114 H 113 H Respiratory Rate 32 H Blood Pressure 113/58 L Pulse Oximetry 93 93 Oxygen Delivery Method 01/15/23 10:00 01/15/23 10:00 Pulse Rate 105 H Respiratory Rate 25 H Blood Pressure 122/59 L Pulse Oximetry 93 Oxygen Delivery Method MDM - Abdominal Pain <Sari Salinas DO - Last Filed: 01/16/23 03:22> Lab Data 01/15/23 22:50 01/15/23 06:15 Labs: Lab Results 01/14/23 01/14/23 01/14/23 Range/Units 20:15 20:15 20:15 WBC 6.0 (4.5-11.0) X10^3/uL RBC 3.94 L (4.0-5.2) X10^6/uL Hgb 11.3 L (12.0-16.0) g/dL Hct 38.9 (36-46) % MCV 98.7 (80-100) fL MCH 28.7 (26-34) PG MCHC 29.1 L (30-36) % RDW 15.4 H (11.6-14.8) % Plt Count 69 L (150-400) X10^3/uL Neut % (Auto) 79.9 H (50-75) % Lymph % (Auto) 15.6 L (25-40) % [place] % (Auto) 2.6 L (3-14) % Eos % (Auto) 1.4 L (2-4) % Baso % (Auto) 0.5 (0-2) % Neut # (Auto) 4800 (9653-9582) /uL Lymph # (Auto) 900 L (0117-5399) /uL [place] # (Auto) 200 (0-900) /uL Eos # (Auto) 100 (0-450) /uL Baso # (Auto) 0 (0-100) /uL Total Counted Seg Neutrophils % (38-70) % Band Neutrophils % (3-7) % Lymphocytes % (Manual) (25-45) % Monocytes % (Manual) (2-11) % Eosinophils % (Manual) (2-4) % Basophils % (Manual) (0-1) % Neutrophils # (Manual) (6726-7446) /uL Nucleated RBCs ( - 0) #/Diff Platelet Estimate Decreased on smear RBC Morphology See below Polychromasia 1+ H Poikilocytosis 1+ H Anisocytosis 1+ H Macrocytosis 1+ H PT (10.1-12.7) SECONDS INR (0.9-1.3) APTT (26-36) SECONDS D-Dimer (<500) ng/ml Sodium 136 L (137-145) mmol/L Potassium 3.4 (3.4-5.1) mmol/L Chloride 101 (98-107) mmol/L Carbon Dioxide 27 (22-32) mmol/L BUN 6 L (7-17) mg/dL Creatinine 0.42 L (0.52-1.04) mg/dL Estimated GFR > 60 (>60) mL/min BUN/Creatinine Ratio 14.3 (6-22) Glucose 108 H (70-100) mg/dL Lactate 1.0 (0.7-2.1) mmol/L Calcium 8.4 (8.4-10.2) mg/dL Total Bilirubin 5.0 H (0.2-1.3) mg/dL Conjugated Bilirubin (0.0-0.3) md/dL Unconjugated Bilirubin (0.0-1.1) mg/dL AST 102 H (14-36) IU/L ALT 50 H (<35) IU/L Alkaline Phosphatase 91 (38-126) U/L Lactate Dehydrogenase (120-246) U/L Total Protein 8.5 H (6.3-8.2) g/dL Albumin 4.7 (3.5-5.0) g/dL Globulin 3.8 (1.7-4.1) g/dL Albumin/Globulin Ratio 1.2 (1.0-2.8) Lipase 116 (23-300) U/L Procalcitonin (<0.5) ng/mL Urine Color Urine Appearance Urine pH (4.5-8.0) Ur Specific [place] (1.000-1.035) Urine Protein (Negative) Urine Glucose (UA) (Negative) g/dL Urine Ketones (NEGATIVE) Urine Occult Blood (Negative) Urine Nitrate (Negative) Urine Bilirubin (NEGATIVE) Ur Bilirubin Confirm (Negative) Urine Urobilinogen (0.2) E.U./dL Ur Leukocyte Esterase (NEGATIVE) Urine RBC (0-5/HPF) Urine WBC (0-5/HPF) Ur Squamous Epith Cells (0-5/HPF) Urine Bacteria (None) Ur Culture Indicated? A. baumannii (PCR) (Not Detect) Chlamy pneumoniae PCR (Not Detect) Adenovirus (PCR) (Not Detect) B. pertussis DNA (PCR) (Not Detecte) B.parapertussis DNA PCR (Not Detecte) Pily albicans (PCR) (Not Detect) C. glabrata (PCR) (Not Detect) C. krusei (PCR) (Not Detect) C. parapsilosis (PCR) (Not Detect) C. tropicalis (PCR) (Not Detect) Coronavirus OC43 (PCR) (Not Detect) Coronavirus HKU1 (PCR) (Not Detect) Coronavirus 229E (PCR) (Not Detect) SARS-CoV-2 (PCR) (Not Detecte) Coronavirus NL63 (PCR) (Not Detect) Enterobacteriac sp PCR (Not Detect) E. cloacae complex PCR (Not Detect) Enterococcus sp PCR (Not Detect) E. coli (PCR) (Not Detect) H. influenzae (PCR) (Not Detect) Human Metapneumovir PCR (Not Detect) Influenza Type A (PCR) (Not Detect) Influenza Type B (PCR) (Not Detect) Klebsiella oxytoca PCR (Not Detect) Klebsiella pneumoniae (Not Detect) List. monocytogenes PCR (Not Detect) M. pneumoniae (PCR) (Not Detect) N. meningitidis (PCR) (Not Detect) Parainfluenza 1 (PCR) (Not Detect) Parainfluenza 2 (PCR) (Not Detect) Parainfluenza 3 (PCR) (Not Detect) Parainfluenza 4 (PCR) (Not Detect) Proteus species (PCR) (Not Detect) RSV (PCR) (Not Detect) Entero/Rhino (PCR) (Not Detect) Serratia marcescens PCR (Not Detect) Staphylococcus sp PCR (Not Detect) Staph aureus (PCR) (Not Detect) mecA-Methicil Res Gene Streptococcus sp PCR (Not Detect) Group A Strep (PCR) (Not Detect) Strep agalactiae (PCR) (Not Detect) Strep pneumoniae (PCR) (Not Detect) P. aeruginosa (PCR) (Not Detect) KPC-Carbap Res Gene PCR (Not Detect) Blood Type Antibody Screen Crossmatch 01/14/23 01/14/23 01/14/23 Range/Units 20:15 22:15 22:50 WBC (4.5-11.0) X10^3/uL RBC (4.0-5.2) X10^6/uL Hgb (12.0-16.0) g/dL Hct (36-46) % MCV (80-100) fL MCH (26-34) PG MCHC (30-36) % RDW (11.6-14.8) % Plt Count (150-400) X10^3/uL Neut % (Auto) (50-75) % Lymph % (Auto) (25-40) % [place] % (Auto) (3-14) % Eos % (Auto) (2-4) % Baso % (Auto) (0-2) % Neut # (Auto) (0202-1121) /uL Lymph # (Auto) (0401-7518) /uL [place] # (Auto) (0-900) /uL Eos # (Auto) (0-450) /uL Baso # (Auto) (0-100) /uL Total Counted Seg Neutrophils % (38-70) % Band Neutrophils % (3-7) % Lymphocytes % (Manual) (25-45) % Monocytes % (Manual) (2-11) % Eosinophils % (Manual) (2-4) % Basophils % (Manual) (0-1) % Neutrophils # (Manual) (7938-0046) /uL Nucleated RBCs ( - 0) #/Diff Platelet Estimate RBC Morphology Polychromasia Poikilocytosis Anisocytosis Macrocytosis PT 11.8 (10.1-12.7) SECONDS INR 1.0 (0.9-1.3) APTT 29 (26-36) SECONDS D-Dimer 1974 H (<500) ng/ml Sodium (137-145) mmol/L Potassium (3.4-5.1) mmol/L Chloride (98-107) mmol/L Carbon Dioxide (22-32) mmol/L BUN (7-17) mg/dL Creatinine (0.52-1.04) mg/dL Estimated GFR (>60) mL/min BUN/Creatinine Ratio (6-22) Glucose (70-100) mg/dL Lactate (0.7-2.1) mmol/L Calcium (8.4-10.2) mg/dL Total Bilirubin (0.2-1.3) mg/dL Conjugated Bilirubin (0.0-0.3) md/dL Unconjugated Bilirubin (0.0-1.1) mg/dL AST (14-36) IU/L ALT (<35) IU/L Alkaline Phosphatase (38-126) U/L Lactate Dehydrogenase (120-246) U/L Total Protein (6.3-8.2) g/dL Albumin (3.5-5.0) g/dL Globulin (1.7-4.1) g/dL Albumin/Globulin Ratio (1.0-2.8) Lipase (23-300) U/L Procalcitonin 0.14 (<0.5) ng/mL Urine Color Urine Appearance Urine pH (4.5-8.0) Ur Specific [place] (1.000-1.035) Urine Protein (Negative) Urine Glucose (UA) (Negative) g/dL Urine Ketones (NEGATIVE) Urine Occult Blood (Negative) Urine Nitrate (Negative) Urine Bilirubin (NEGATIVE) Ur Bilirubin Confirm (Negative) Urine Urobilinogen (0.2) E.U./dL Ur Leukocyte Esterase (NEGATIVE) Urine RBC (0-5/HPF) Urine WBC (0-5/HPF) Ur Squamous Epith Cells (0-5/HPF) Urine Bacteria (None) Ur Culture Indicated? A. baumannii (PCR) (Not Detect) Chlamy pneumoniae PCR (Not Detect) Adenovirus (PCR) (Not Detect) B. pertussis DNA (PCR) (Not Detecte) B.parapertussis DNA PCR (Not Detecte) Pily albicans (PCR) (Not Detect) C. glabrata (PCR) (Not Detect) C. krusei (PCR) (Not Detect) C. parapsilosis (PCR) (Not Detect) C. tropicalis (PCR) (Not Detect) Coronavirus OC43 (PCR) (Not Detect) Coronavirus HKU1 (PCR) (Not Detect) Coronavirus 229E (PCR) (Not Detect) SARS-CoV-2 (PCR) (Not Detecte) Coronavirus NL63 (PCR) (Not Detect) Enterobacteriac sp PCR (Not Detect) E. cloacae complex PCR (Not Detect) Enterococcus sp PCR (Not Detect) E. coli (PCR) (Not Detect) H. influenzae (PCR) (Not Detect) Human Metapneumovir PCR (Not Detect) Influenza Type A (PCR) (Not Detect) Influenza Type B (PCR) (Not Detect) Klebsiella oxytoca PCR (Not Detect) Klebsiella pneumoniae (Not Detect) List. monocytogenes PCR (Not Detect) M. pneumoniae (PCR) (Not Detect) N. meningitidis (PCR) (Not Detect) Parainfluenza 1 (PCR) (Not Detect) Parainfluenza 2 (PCR) (Not Detect) Parainfluenza 3 (PCR) (Not Detect) Parainfluenza 4 (PCR) (Not Detect) Proteus species (PCR) (Not Detect) RSV (PCR) (Not Detect) Entero/Rhino (PCR) (Not Detect) Serratia marcescens PCR (Not Detect) Staphylococcus sp PCR (Not Detect) Staph aureus (PCR) (Not Detect) mecA-Methicil Res Gene Streptococcus sp PCR (Not Detect) Group A Strep (PCR) (Not Detect) Strep agalactiae (PCR) (Not Detect) Strep pneumoniae (PCR) (Not Detect) P. aeruginosa (PCR) (Not Detect) KPC-Carbap Res Gene PCR (Not Detect) Blood Type Antibody Screen Crossmatch 01/14/23 01/14/23 01/14/23 Range/Units 22:50 22:50 23:02 WBC 0.4 L* D (4.5-11.0) X10^3/uL RBC 3.36 L (4.0-5.2) X10^6/uL Hgb 9.8 L (12.0-16.0) g/dL Hct 33.7 L (36-46) % MCV 100.4 H (80-100) fL MCH 29.2 (26-34) PG MCHC 29.1 L (30-36) % RDW 15.4 H (11.6-14.8) % Plt Count 52 L (150-400) X10^3/uL Neut % (Auto) Not Reportable (50-75) % Lymph % (Auto) TNP (25-40) % [place] % (Auto) TNP (3-14) % Eos % (Auto) TNP (2-4) % Baso % (Auto) TNP (0-2) % Neut # (Auto) TNP (9750-9417) /uL Lymph # (Auto) TNP (9121-1845) /uL [place] # (Auto) TNP (0-900) /uL Eos # (Auto) TNP (0-450) /uL Baso # (Auto) TNP (0-100) /uL Total Counted Seg Neutrophils % (38-70) % Band Neutrophils % (3-7) % Lymphocytes % (Manual) (25-45) % Monocytes % (Manual) (2-11) % Eosinophils % (Manual) (2-4) % Basophils % (Manual) (0-1) % Neutrophils # (Manual) (3841-8688) /uL Nucleated RBCs ( - 0) #/Diff Platelet Estimate RBC Morphology Polychromasia Poikilocytosis Anisocytosis Macrocytosis PT (10.1-12.7) SECONDS INR (0.9-1.3) APTT (26-36) SECONDS D-Dimer (<500) ng/ml Sodium (137-145) mmol/L Potassium (3.4-5.1) mmol/L Chloride (98-107) mmol/L Carbon Dioxide (22-32) mmol/L BUN (7-17) mg/dL Creatinine (0.52-1.04) mg/dL Estimated GFR (>60) mL/min BUN/Creatinine Ratio (6-22) Glucose (70-100) mg/dL Lactate 2.7 H (0.7-2.1) mmol/L Calcium (8.4-10.2) mg/dL Total Bilirubin (0.2-1.3) mg/dL Conjugated Bilirubin (0.0-0.3) md/dL Unconjugated Bilirubin (0.0-1.1) mg/dL AST (14-36) IU/L ALT (<35) IU/L Alkaline Phosphatase (38-126) U/L Lactate Dehydrogenase (120-246) U/L Total Protein (6.3-8.2) g/dL Albumin (3.5-5.0) g/dL Globulin (1.7-4.1) g/dL Albumin/Globulin Ratio (1.0-2.8) Lipase (23-300) U/L Procalcitonin (<0.5) ng/mL Urine Color Urine Appearance Urine pH (4.5-8.0) Ur Specific [place] (1.000-1.035) Urine Protein (Negative) Urine Glucose (UA) (Negative) g/dL Urine Ketones (NEGATIVE) Urine Occult Blood (Negative) Urine Nitrate (Negative) Urine Bilirubin (NEGATIVE) Ur Bilirubin Confirm (Negative) Urine Urobilinogen (0.2) E.U./dL Ur Leukocyte Esterase (NEGATIVE) Urine RBC (0-5/HPF) Urine WBC (0-5/HPF) Ur Squamous Epith Cells (0-5/HPF) Urine Bacteria (None) Ur Culture Indicated? A. baumannii (PCR) Not detected (Not Detect) Chlamy pneumoniae PCR (Not Detect) Adenovirus (PCR) (Not Detect) B. pertussis DNA (PCR) (Not Detecte) B.parapertussis DNA PCR (Not Detecte) Pily albicans (PCR) Not detected (Not Detect) C. glabrata (PCR) Not detected (Not Detect) C. krusei (PCR) Not detected (Not Detect) C. parapsilosis (PCR) Not detected (Not Detect) C. tropicalis (PCR) Not detected (Not Detect) Coronavirus OC43 (PCR) (Not Detect) Coronavirus HKU1 (PCR) (Not Detect) Coronavirus 229E (PCR) (Not Detect) SARS-CoV-2 (PCR) (Not Detecte) Coronavirus NL63 (PCR) (Not Detect) Enterobacteriac sp PCR Detected H (Not Detect) E. cloacae complex PCR Not detected (Not Detect) Enterococcus sp PCR Not detected (Not Detect) E. coli (PCR) Detected H (Not Detect) H. influenzae (PCR) Not detected (Not Detect) Human Metapneumovir PCR (Not Detect) Influenza Type A (PCR) (Not Detect) Influenza Type B (PCR) (Not Detect) Klebsiella oxytoca PCR Not detected (Not Detect) Klebsiella pneumoniae Not detected (Not Detect) List. monocytogenes PCR Not detected (Not Detect) M. pneumoniae (PCR) (Not Detect) N. meningitidis (PCR) Not detected (Not Detect) Parainfluenza 1 (PCR) (Not Detect) Parainfluenza 2 (PCR) (Not Detect) Parainfluenza 3 (PCR) (Not Detect) Parainfluenza 4 (PCR) (Not Detect) Proteus species (PCR) Not detected (Not Detect) RSV (PCR) (Not Detect) Entero/Rhino (PCR) (Not Detect) Serratia marcescens PCR Not detected (Not Detect) Staphylococcus sp PCR Not detected (Not Detect) Staph aureus (PCR) Not detected (Not Detect) mecA-Methicil Res Gene Not Reportable Streptococcus sp PCR Not detected (Not Detect) Group A Strep (PCR) Not detected (Not Detect) Strep agalactiae (PCR) Not detected (Not Detect) Strep pneumoniae (PCR) Not detected (Not Detect) P. aeruginosa (PCR) Not detected (Not Detect) KPC-Carbap Res Gene PCR Not detected (Not Detect) Blood Type Antibody Screen Crossmatch 01/14/23 01/14/23 01/14/23 Range/Units 23:30 23:30 23:32 WBC 0.9 L* D (4.5-11.0) X10^3/uL RBC 3.05 L (4.0-5.2) X10^6/uL Hgb 8.9 L (12.0-16.0) g/dL Hct 30.7 L (36-46) % MCV 100.6 H (80-100) fL MCH 29.4 (26-34) PG MCHC 29.2 L (30-36) % RDW 15.2 H (11.6-14.8) % Plt Count 42 L (150-400) X10^3/uL Neut % (Auto) Not Reportable (50-75) % Lymph % (Auto) Not Reportable (25-40) % [place] % (Auto) Not Reportable (3-14) % Eos % (Auto) Not Reportable (2-4) % Baso % (Auto) Not Reportable (0-2) % Neut # (Auto) (0096-5555) /uL Lymph # (Auto) Not Reportable (6117-3223) /uL [place] # (Auto) Not Reportable (0-900) /uL Eos # (Auto) (0-450) /uL Baso # (Auto) Not Reportable (0-100) /uL Total Counted 100 Seg Neutrophils % 61.0 (38-70) % Band Neutrophils % 6.0 (3-7) % Lymphocytes % (Manual) 20.0 L (25-45) % Monocytes % (Manual) 5.0 (2-11) % Eosinophils % (Manual) 5.0 H (2-4) % Basophils % (Manual) 3.0 H (0-1) % Neutrophils # (Manual) 603 L (2063-0551) /uL Nucleated RBCs ( - 0) #/Diff Platelet Estimate RBC Morphology Normal morphology Polychromasia Poikilocytosis Anisocytosis Macrocytosis PT (10.1-12.7) SECONDS INR (0.9-1.3) APTT (26-36) SECONDS D-Dimer (<500) ng/ml Sodium (137-145) mmol/L Potassium (3.4-5.1) mmol/L Chloride (98-107) mmol/L Carbon Dioxide (22-32) mmol/L BUN (7-17) mg/dL Creatinine (0.52-1.04) mg/dL Estimated GFR (>60) mL/min BUN/Creatinine Ratio (6-22) Glucose (70-100) mg/dL Lactate (0.7-2.1) mmol/L Calcium (8.4-10.2) mg/dL Total Bilirubin (0.2-1.3) mg/dL Conjugated Bilirubin (0.0-0.3) md/dL Unconjugated Bilirubin (0.0-1.1) mg/dL AST (14-36) IU/L ALT (<35) IU/L Alkaline Phosphatase (38-126) U/L Lactate Dehydrogenase (120-246) U/L Total Protein (6.3-8.2) g/dL Albumin (3.5-5.0) g/dL Globulin (1.7-4.1) g/dL Albumin/Globulin Ratio (1.0-2.8) Lipase (23-300) U/L Procalcitonin (<0.5) ng/mL Urine Color Yellow Urine Appearance Clear Urine pH 5.5 (4.5-8.0) Ur Specific [place] <=1.005 (1.000-1.035) Urine Protein Trace H (Negative) Urine Glucose (UA) Negative (Negative) g/dL Urine Ketones Negative (NEGATIVE) Urine Occult Blood 2+ H (Negative) Urine Nitrate Positive H (Negative) Urine Bilirubin 1+ H (NEGATIVE) Ur Bilirubin Confirm Negative (Negative) Urine Urobilinogen 1.0 (0.2) E.U./dL Ur Leukocyte Esterase 2+ H (NEGATIVE) Urine RBC 1-5/hpf D (0-5/HPF) Urine WBC 5-10/hpf H (0-5/HPF) Ur Squamous Epith Cells 1-5 /hpf (0-5/HPF) Urine Bacteria Many (>30) H (None) Ur Culture Indicated? Specimen cultured A. baumannii (PCR) (Not Detect) Chlamy pneumoniae PCR Not detected (Not Detect) Adenovirus (PCR) Not detected (Not Detect) B. pertussis DNA (PCR) Not detected (Not Detecte) B.parapertussis DNA PCR Not detected (Not Detecte) Pily albicans (PCR) (Not Detect) C. glabrata (PCR) (Not Detect) C. krusei (PCR) (Not Detect) C. parapsilosis (PCR) (Not Detect) C. tropicalis (PCR) (Not Detect) Coronavirus OC43 (PCR) Not detected (Not Detect) Coronavirus HKU1 (PCR) Not detected (Not Detect) Coronavirus 229E (PCR) Not detected (Not Detect) SARS-CoV-2 (PCR) Detected H (Not Detecte) Coronavirus NL63 (PCR) Not detected (Not Detect) Enterobacteriac sp PCR (Not Detect) E. cloacae complex PCR (Not Detect) Enterococcus sp PCR (Not Detect) E. coli (PCR) (Not Detect) H. influenzae (PCR) (Not Detect) Human Metapneumovir PCR Not detected (Not Detect) Influenza Type A (PCR) Not detected (Not Detect) Influenza Type B (PCR) Not detected (Not Detect) Klebsiella oxytoca PCR (Not Detect) Klebsiella pneumoniae (Not Detect) List. monocytogenes PCR (Not Detect) M. pneumoniae (PCR) Not detected (Not Detect) N. meningitidis (PCR) (Not Detect) Parainfluenza 1 (PCR) Not detected (Not Detect) Parainfluenza 2 (PCR) Not detected (Not Detect) Parainfluenza 3 (PCR) Not detected (Not Detect) Parainfluenza 4 (PCR) Not detected (Not Detect) Proteus species (PCR) (Not Detect) RSV (PCR) Not detected (Not Detect) Entero/Rhino (PCR) Not detected (Not Detect) Serratia marcescens PCR (Not Detect) Staphylococcus sp PCR (Not Detect) Staph aureus (PCR) (Not Detect) mecA-Methicil Res Gene Streptococcus sp PCR (Not Detect) Group A Strep (PCR) (Not Detect) Strep agalactiae (PCR) (Not Detect) Strep pneumoniae (PCR) (Not Detect) P. aeruginosa (PCR) (Not Detect) KPC-Carbap Res Gene PCR (Not Detect) Blood Type Antibody Screen Crossmatch 01/14/23 01/15/23 01/15/23 Range/Units 23:40 00:30 02:00 WBC (4.5-11.0) X10^3/uL RBC (4.0-5.2) X10^6/uL Hgb (12.0-16.0) g/dL Hct (36-46) % MCV (80-100) fL MCH (26-34) PG MCHC (30-36) % RDW (11.6-14.8) % Plt Count (150-400) X10^3/uL Neut % (Auto) (50-75) % Lymph % (Auto) (25-40) % [place] % (Auto) (3-14) % Eos % (Auto) (2-4) % Baso % (Auto) (0-2) % Neut # (Auto) (8017-5358) /uL Lymph # (Auto) (6399-9231) /uL [place] # (Auto) (0-900) /uL Eos # (Auto) (0-450) /uL Baso # (Auto) (0-100) /uL Total Counted Seg Neutrophils % (38-70) % Band Neutrophils % (3-7) % Lymphocytes % (Manual) (25-45) % Monocytes % (Manual) (2-11) % Eosinophils % (Manual) (2-4) % Basophils % (Manual) (0-1) % Neutrophils # (Manual) (5896-1580) /uL Nucleated RBCs ( - 0) #/Diff Platelet Estimate RBC Morphology Polychromasia Poikilocytosis Anisocytosis Macrocytosis PT (10.1-12.7) SECONDS INR (0.9-1.3) APTT (26-36) SECONDS D-Dimer (<500) ng/ml Sodium (137-145) mmol/L Potassium (3.4-5.1) mmol/L Chloride (98-107) mmol/L Carbon Dioxide (22-32) mmol/L BUN (7-17) mg/dL Creatinine (0.52-1.04) mg/dL Estimated GFR (>60) mL/min BUN/Creatinine Ratio (6-22) Glucose (70-100) mg/dL Lactate 2.2 H (0.7-2.1) mmol/L Calcium (8.4-10.2) mg/dL Total Bilirubin 6.9 H (0.2-1.3) mg/dL Conjugated Bilirubin 2.2 H (0.0-0.3) md/dL Unconjugated Bilirubin 3.5 H (0.0-1.1) mg/dL AST 193 H (14-36) IU/L ALT 79 H (<35) IU/L Alkaline Phosphatase 102 (38-126) U/L Lactate Dehydrogenase 1285 H (120-246) U/L Total Protein 6.0 L (6.3-8.2) g/dL Albumin 3.1 L (3.5-5.0) g/dL Globulin 2.9 (1.7-4.1) g/dL Albumin/Globulin Ratio 1.1 (1.0-2.8) Lipase (23-300) U/L Procalcitonin (<0.5) ng/mL Urine Color Urine Appearance Urine pH (4.5-8.0) Ur Specific [place] (1.000-1.035) Urine Protein (Negative) Urine Glucose (UA) (Negative) g/dL Urine Ketones (NEGATIVE) Urine Occult Blood (Negative) Urine Nitrate (Negative) Urine Bilirubin (NEGATIVE) Ur Bilirubin Confirm (Negative) Urine Urobilinogen (0.2) E.U./dL Ur Leukocyte Esterase (NEGATIVE) Urine RBC (0-5/HPF) Urine WBC (0-5/HPF) Ur Squamous Epith Cells (0-5/HPF) Urine Bacteria (None) Ur Culture Indicated? A. baumannii (PCR) (Not Detect) Chlamy pneumoniae PCR (Not Detect) Adenovirus (PCR) (Not Detect) B. pertussis DNA (PCR) (Not Detecte) B.parapertussis DNA PCR (Not Detecte) Pily albicans (PCR) (Not Detect) C. glabrata (PCR) (Not Detect) C. krusei (PCR) (Not Detect) C. parapsilosis (PCR) (Not Detect) C. tropicalis (PCR) (Not Detect) Coronavirus OC43 (PCR) (Not Detect) Coronavirus HKU1 (PCR) (Not Detect) Coronavirus 229E (PCR) (Not Detect) SARS-CoV-2 (PCR) (Not Detecte) Coronavirus NL63 (PCR) (Not Detect) Enterobacteriac sp PCR (Not Detect) E. cloacae complex PCR (Not Detect) Enterococcus sp PCR (Not Detect) E. coli (PCR) (Not Detect) H. influenzae (PCR) (Not Detect) Human Metapneumovir PCR (Not Detect) Influenza Type A (PCR) (Not Detect) Influenza Type B (PCR) (Not Detect) Klebsiella oxytoca PCR (Not Detect) Klebsiella pneumoniae (Not Detect) List. monocytogenes PCR (Not Detect) M. pneumoniae (PCR) (Not Detect) N. meningitidis (PCR) (Not Detect) Parainfluenza 1 (PCR) (Not Detect) Parainfluenza 2 (PCR) (Not Detect) Parainfluenza 3 (PCR) (Not Detect) Parainfluenza 4 (PCR) (Not Detect) Proteus species (PCR) (Not Detect) RSV (PCR) (Not Detect) Entero/Rhino (PCR) (Not Detect) Serratia marcescens PCR (Not Detect) Staphylococcus sp PCR (Not Detect) Staph aureus (PCR) (Not Detect) mecA-Methicil Res Gene Streptococcus sp PCR (Not Detect) Group A Strep (PCR) (Not Detect) Strep agalactiae (PCR) (Not Detect) Strep pneumoniae (PCR) (Not Detect) P. aeruginosa (PCR) (Not Detect) KPC-Carbap Res Gene PCR (Not Detect) Blood Type O Positive Antibody Screen Negative Crossmatch See Detail 01/15/23 01/15/23 01/15/23 Range/Units 06:15 06:15 06:15 WBC 6.6 D (4.5-11.0) X10^3/uL RBC 3.15 L (4.0-5.2) X10^6/uL Hgb 9.5 L (12.0-16.0) g/dL Hct 31.6 L (36-46) % MCV 100.0 (80-100) fL MCH 30.2 (26-34) PG MCHC 30.2 (30-36) % RDW 16.2 H (11.6-14.8) % Plt Count 38 L (150-400) X10^3/uL Neut % (Auto) Not Reportable (50-75) % Lymph % (Auto) Not Reportable (25-40) % [place] % (Auto) Not Reportable (3-14) % Eos % (Auto) Not Reportable (2-4) % Baso % (Auto) Not Reportable (0-2) % Neut # (Auto) (6626-6911) /uL Lymph # (Auto) Not Reportable (3586-3455) /uL [place] # (Auto) Not Reportable (0-900) /uL Eos # (Auto) (0-450) /uL Baso # (Auto) Not Reportable (0-100) /uL Total Counted 100 Seg Neutrophils % 87.0 H (38-70) % Band Neutrophils % 7.0 (3-7) % Lymphocytes % (Manual) 2.0 L (25-45) % Monocytes % (Manual) 4.0 (2-11) % Eosinophils % (Manual) (2-4) % Basophils % (Manual) (0-1) % Neutrophils # (Manual) 6204 H (7620-4374) /uL Nucleated RBCs 2 H ( - 0) #/Diff Platelet Estimate RBC Morphology Not Reportable Polychromasia Poikilocytosis Anisocytosis 2+ H Macrocytosis PT (10.1-12.7) SECONDS INR (0.9-1.3) APTT (26-36) SECONDS D-Dimer (<500) ng/ml Sodium 137 (137-145) mmol/L Potassium 3.1 L (3.4-5.1) mmol/L Chloride 105 (98-107) mmol/L Carbon Dioxide 25 (22-32) mmol/L BUN 9 (7-17) mg/dL Creatinine 0.47 L (0.52-1.04) mg/dL Estimated GFR > 60 (>60) mL/min BUN/Creatinine Ratio 19.1 (6-22) Glucose 115 H (70-100) mg/dL Lactate 1.5 (0.7-2.1) mmol/L Calcium 7.3 L (8.4-10.2) mg/dL Total Bilirubin 11.3 H (0.2-1.3) mg/dL Conjugated Bilirubin (0.0-0.3) md/dL Unconjugated Bilirubin (0.0-1.1) mg/dL AST 180 H (14-36) IU/L ALT 81 H (<35) IU/L Alkaline Phosphatase 93 (38-126) U/L Lactate Dehydrogenase (120-246) U/L Total Protein 6.4 (6.3-8.2) g/dL Albumin 3.4 L (3.5-5.0) g/dL Globulin 3.0 (1.7-4.1) g/dL Albumin/Globulin Ratio 1.1 (1.0-2.8) Lipase (23-300) U/L Procalcitonin (<0.5) ng/mL Urine Color Urine Appearance Urine pH (4.5-8.0) Ur Specific [place] (1.000-1.035) Urine Protein (Negative) Urine Glucose (UA) (Negative) g/dL Urine Ketones (NEGATIVE) Urine Occult Blood (Negative) Urine Nitrate (Negative) Urine Bilirubin (NEGATIVE) Ur Bilirubin Confirm (Negative) Urine Urobilinogen (0.2) E.U./dL Ur Leukocyte Esterase (NEGATIVE) Urine RBC (0-5/HPF) Urine WBC (0-5/HPF) Ur Squamous Epith Cells (0-5/HPF) Urine Bacteria (None) Ur Culture Indicated? A. baumannii (PCR) (Not Detect) Chlamy pneumoniae PCR (Not Detect) Adenovirus (PCR) (Not Detect) B. pertussis DNA (PCR) (Not Detecte) B.parapertussis DNA PCR (Not Detecte) Pily albicans (PCR) (Not Detect) C. glabrata (PCR) (Not Detect) C. krusei (PCR) (Not Detect) C. parapsilosis (PCR) (Not Detect) C. tropicalis (PCR) (Not Detect) Coronavirus OC43 (PCR) (Not Detect) Coronavirus HKU1 (PCR) (Not Detect) Coronavirus 229E (PCR) (Not Detect) SARS-CoV-2 (PCR) (Not Detecte) Coronavirus NL63 (PCR) (Not Detect) Enterobacteriac sp PCR (Not Detect) E. cloacae complex PCR (Not Detect) Enterococcus sp PCR (Not Detect) E. coli (PCR) (Not Detect) H. influenzae (PCR) (Not Detect) Human Metapneumovir PCR (Not Detect) Influenza Type A (PCR) (Not Detect) Influenza Type B (PCR) (Not Detect) Klebsiella oxytoca PCR (Not Detect) Klebsiella pneumoniae (Not Detect) List. monocytogenes PCR (Not Detect) M. pneumoniae (PCR) (Not Detect) N. meningitidis (PCR) (Not Detect) Parainfluenza 1 (PCR) (Not Detect) Parainfluenza 2 (PCR) (Not Detect) Parainfluenza 3 (PCR) (Not Detect) Parainfluenza 4 (PCR) (Not Detect) Proteus species (PCR) (Not Detect) RSV (PCR) (Not Detect) Entero/Rhino (PCR) (Not Detect) Serratia marcescens PCR (Not Detect) Staphylococcus sp PCR (Not Detect) Staph aureus (PCR) (Not Detect) mecA-Methicil Res Gene Streptococcus sp PCR (Not Detect) Group A Strep (PCR) (Not Detect) Strep agalactiae (PCR) (Not Detect) Strep pneumoniae (PCR) (Not Detect) P. aeruginosa (PCR) (Not Detect) KPC-Carbap Res Gene PCR (Not Detect) Blood Type Antibody Screen Crossmatch Imaging Data US - abdomen: Radiologist's Impression: PROCEDURE: US ABDOMEN LIMITED ? INDICATIONS:? HIGH BILI, VOMITING, RUQ ? TECHNIQUE:? Real-time focused scanning was performed of the abdomen, with image documentation.? ? COMPARISON:? [facility], CT, CT ABDOMEN PELVIS W CON, 01/14/2023, 21:54.? [facility], US, US ABDOMEN COMPLETE, 09/10/2018, 4:18. ? FINDINGS:? ? The liver demonstrates increased no focal mass lesions.? There is increased parenchymal echogenicity suggestive of mild fatty infiltration. ? The gallbladder is surgically absent. ? No intra or extrahepatic biliary ductal dilatation. ? Pancreas not well visualized. ? ? IMPRESSION:? ? 1. No evidence of biliary ductal dilatation. ? ? Dictated by: Garrett Blanco M.D. on 01/14/2023 at 23:19 ? CT scan - abdomen/pelvis: Radiologist's Impression: PROCEDURE:? CT ABDOMEN PELVIS W CON ? INDICATIONS:? vomiting ruq pain high bili ? TECHNIQUE:? After the administration of IV contrast, axial sections were acquired from the lung bases to the pubic symphysis.? Coronal and sagittal reformats were performed.? For radiation dose reduction, the following was used:? automated exposure control, adjustment of mA and/or kV according to patient size. ? COMPARISON:? [facility], CT, CT ABDOMEN PELVIS W CON, 09/29/2018, 8:45. ? FINDINGS:? Image quality:? Excellent.? ? Lung bases:? There is minimal dependent atelectasis.? ? Heart:? Heart is normal in size. ? ? ABDOMEN: Liver:? No mass lesion. Gallbladder:? Surgically absent. Biliary ducts:? No biliary ductal dilatation.? No calcified common duct stones. ? Pancreas:? Unremarkable.? ? Spleen:? There is splenomegaly redemonstrated, with the spleen measuring up to 18.8 cm in craniocaudal dimension, increased from 17.3 cm previously. Adrenal Glands:? No adrenal nodules.? ? Kidneys and Ureters:? No hydronephrosis.? ? ? Stomach and Bowel:? Stomach, small bowel loops, and colon are normal in caliber and wall thickness.? The appendix is normal.? There is colonic diverticulosis without acute diverticulitis. Peritoneum:? No abnormal intraperitoneal fluid.? No free air.? ? Ventral Wall: ? No hernia.? Abdominal Nodes:? No retroperitoneal or mesenteric adenopathy by size criteria.? Vessels:? Aorta and inferior vena cava are normal in size.? ? PELVIS: Pelvic Organs:? Unremarkable.? ? Bladder:? Unremarkable.? ? Pelvic Nodes: No enlarged lymph nodes.? Miscellaneous: No inguinal hernias are seen. ? ? ? Bones:? Visualized osseous structures demonstrate no suspicious focal lesions. ? IMPRESSION:? ? 1. Marked splenomegaly redemonstrated. ? 2. Surgical absence of the gallbladder. ? 3. No evidence of biliary ductal dilatation or calcified common duct stones.? ? 4. No evidence of appendicitis or obstructive uropathy.? ? Dictated by: Garrett Blanco M.D. on 01/14/2023 at 23:02 ? Chest x-ray: Radiologist's Impression: PROCEDURE:? XR CHEST 1V ? INDICATIONS:? short of breath ? TECHNIQUE:? One view of the chest was acquired.? ? COMPARISON:? [facility], CR, CHEST 2 VIEW, 11/18/2016, 15:45. ? FINDINGS:? ? Surgical changes and devices:? None.? ? Lungs and pleura:? Lungs are clear.? No pleural effusions or pneumothorax.? ? Mediastinum:? Mediastinal contours appear normal.? Heart size is normal.? ? Bones and chest wall:? No suspicious bony lesions.? Overlying soft tissues appear unremarkable.? ? IMPRESSION:? ? 1.? No acute cardiopulmonary disease. ? ? ? Dictated by: Garrett Blanco M.D. on 01/15/2023 at 0:12 ? ? CT scan - chest: Radiologist's Impression: PROCEDURE:? CT ANGIO CHEST PE PROTOCOL ? INDICATIONS:? hypoxic ? TECHNIQUE:? After the administration of intravenous contrast, 2 mm thick sections acquired from the pulmonary apices to the posterior costophrenic angles.? 3-dimensional maximum intensity projection (MIP) coronal and sagittal reformats were then acquired through the thorax.? For radiation dose reduction, the following was used:? automated exposure control, adjustment of mA and/or kV according to patient size.? ? COMPARISON:? [facility], CT, CT ABDOMEN PELVIS W CON, 09/29/2018, 8:45. ? FINDINGS:? Image quality:? Excellent.? ? Pulmonary arteries:? Pulmonary arteries are normal in size, and demonstrate no intraluminal filling defects to suggest central pulmonary embolism.? ? Lower Neck: No lymphadenopathy by size criteria. Thyroid:? Visualized thyroid demonstrates no discrete nodules. Axillae: No lymphadenopathy by size criteria. Chest Wall:? Unremarkable.? Bones: Visualized osseous structures demonstrate no suspicious lesions. ? Lungs and Airways:? No acute consolidation.? No suspicious pulmonary nodules.? There is mild dependent atelectasis.? The trachea and central airways are patent. Pleura: No pneumothorax or pleural effusions.? ? Heart: Heart size is normal.? No pericardial effusion. Thoracic Vessels: The thoracic aorta is normal in size.? Mediastinum and Alix:? There are multiple mildly enlarged mediastinal lymph nodes.? This includes a leasing representative precarinal node measuring up to 1.0 cm on series 4, image 42. Esophagus: No wall thickening. No hiatal hernia. ? Abdomen:? Visualized upper abdomen demonstrates splenomegaly, with the visua lizpatricio spleen measuring up to 16.0 cm. ? IMPRESSION:? ? 1. No evidence of pulmonary embolism. ? 2. No acute airspace consolidation. ? 3. Splenomegaly redemonstrated. ? 4. Mildly enlarged mediastinal lymph nodes are nonspecific and may be reactive.? ? ? Dictated by: Garrett Blanco M.D. on 01/15/2023 at 1:18 ? ECG Data Interpretation: EKG 1. Sinus rhythm 101 NH interval 148 QRS 92 QTC 464 T-wave inversion noted in V3 EKG 2. 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 Initially she was mildly tachycardic heart rate 1 0 1 temperature 99.9?. She suddenly became very tachycardic heart rate in the 140s she had been given Dilaudid for pain overall appeared comfortable feels like her heart is racing. Was pretty steady [id number] thought to be possibly atrial flutter she was given 10 mg of diltiazem slowed at 9:35 p.m. then it was found that she actually has a temperature of 103? her blood pressure remained stable. However she is given sepsis fluids. Repeat blood work shows new leukopenia with WBC 0.4,, hemoglobin 9.8 hematocrit 33.7, blood work is repeated to be sure of these results and they are similar WBC 0.9, hemoglobin 8.9, hematocrit 30.7. LDH is also elevated at 1285, haptoglobin is a send out concern for hemolysis bi lirubin also increased it was previously 5.0 now 6.9 all suggestive of hemolytic anemia. During this time she also started requiring 1-2 L of oxygen. Therefore D-dimer was added and CT angio added. Chest x-ray was negative, CT angio did not show any pulmonary embolism or other abnormality. Abdominal ultrasound does not show any evidence biliary dilation, CT abdomen pelvis, shows marked splenomegaly but no other abnormalities. Patient given sepsis fluid antibiotics cefepime vancomycin also given dexamethasone for hypoxia and COVID. Patient's vomiting and nausea has stopped overall is looking better. Doctor new line consulted at this time due to patient's anemia would suggest and prefer patient be transferred where there is hematology. 01:00 Dr. Diaz, hematology/oncology updated patient's symptoms test results he also thinks that she is hemolyzing. Recommend blood transfusion for symptomatic so for hypoxia. He says wait for haptoglobin to return it also suggests hemolytic anemia then would need high dose prednisone of 60 mg once daily with a taper as an outpatient, he is unsure what to make of her WBC count. Patient remained stable she is actually improving heart rate is improving she is receiving 1 unit blood. She is never hypotensive. Blood work in the morning is actually improved WBC count is up to 6 hemoglobin of 9.5. Patient signed out to Dr. Radha Garcia- 8:30 a.m.. I did speak with Dr. Alaniz, hematology/oncology. Recommends holding on prednisone at this time. Patient can be admitted here for supportive care and serial H&H and may need further transfusions. 10:[address] Gayle, primary care on-call. He will admit patient. 10:00 a.m. heart rate 109, 122/58 Updated patient to be admitted here and she agrees. Updated daughter as well <Gus Garcia MD - Last Filed: 01/15/23 14:06> Lab Data Labs: Lab Results 01/14/23 01/14/23 01/14/23 Range/Units 20:15 20:15 20:15 WBC 6.0 (4.5-11.0) X10^3/uL RBC 3.94 L (4.0-5.2) X10^6/uL Hgb 11.3 L (12.0-16.0) g/dL Hct 38.9 (36-46) % MCV 98.7 (80-100) fL MCH 28.7 (26-34) PG MCHC 29.1 L (30-36) % RDW 15.4 H (11.6-14.8) % Plt Count 69 L (150-400) X10^3/uL Neut % (Auto) 79.9 H (50-75) % Lymph % (Auto) 15.6 L (25-40) % [place] % (Auto) 2.6 L (3-14) % Eos % (Auto) 1.4 L (2-4) % Baso % (Auto) 0.5 (0-2) % Neut # (Auto) 4800 (6839-1615) /uL Lymph # (Auto) 900 L (9420-5993) /uL [place] # (Auto) 200 (0-900) /uL Eos # (Auto) 100 (0-450) /uL Baso # (Auto) 0 (0-100) /uL Total Counted Seg Neutrophils % (38-70) % Band Neutrophils % (3-7) % Lymphocytes % (Manual) (25-45) % Monocytes % (Manual) (2-11) % Eosinophils % (Manual) (2-4) % Basophils % (Manual) (0-1) % Neutrophils # (Manual) (7089-5749) /uL Nucleated RBCs ( - 0) #/Diff Platelet Estimate Decreased on smear RBC Morphology See below Polychromasia 1+ H Poikilocytosis 1+ H Anisocytosis 1+ H Macrocytosis 1+ H PT (10.1-12.7) SECONDS INR (0.9-1.3) APTT (26-36) SECONDS D-Dimer (<500) ng/ml Sodium 136 L (137-145) mmol/L Potassium 3.4 (3.4-5.1) mmol/L Chloride 101 (98-107) mmol/L Carbon Dioxide 27 (22-32) mmol/L BUN 6 L (7-17) mg/dL Creatinine 0.42 L (0.52-1.04) mg/dL Estimated GFR > 60 (>60) mL/min BUN/Creatinine Ratio 14.3 (6-22) Glucose 108 H (70-100) mg/dL Lactate 1.0 (0.7-2.1) mmol/L Calcium 8.4 (8.4-10.2) mg/dL Total Bilirubin 5.0 H (0.2-1.3) mg/dL Conjugated Bilirubin (0.0-0.3) md/dL Unconjugated Bilirubin (0.0-1.1) mg/dL AST 102 H (14-36) IU/L ALT 50 H (<35) IU/L Alkaline Phosphatase 91 (38-126) U/L Lactate Dehydrogenase (120-246) U/L Total Protein 8.5 H (6.3-8.2) g/dL Albumin 4.7 (3.5-5.0) g/dL Globulin 3.8 (1.7-4.1) g/dL Albumin/Globulin Ratio 1.2 (1.0-2.8) Lipase 116 (23-300) U/L Procalcitonin (<0.5) ng/mL Urine Color Urine Appearance Urine pH (4.5-8.0) Ur Specific [place] (1.000-1.035) Urine Protein (Negative) Urine Glucose (UA) (Negative) g/dL Urine Ketones (NEGATIVE) Urine Occult Blood (Negative) Urine Nitrate (Negative) Urine Bilirubin (NEGATIVE) Ur Bilirubin Confirm (Negative) Urine Urobilinogen (0.2) E.U./dL Ur Leukocyte Esterase (NEGATIVE) Urine RBC (0-5/HPF) Urine WBC (0-5/HPF) Ur Squamous Epith Cells (0-5/HPF) Urine Bacteria (None) Ur Culture Indicated? A. baumannii (PCR) (Not Detect) Chlamy pneumoniae PCR (Not Detect) Adenovirus (PCR) (Not Detect) B. pertussis DNA (PCR) (Not Detecte) B.parapertussis DNA PCR (Not Detecte) Pily albicans (PCR) (Not Detect) C. glabrata (PCR) (Not Detect) C. krusei (PCR) (Not Detect) C. parapsilosis (PCR) (Not Detect) C. tropicalis (PCR) (Not Detect) Coronavirus OC43 (PCR) (Not Detect) Coronavirus HKU1 (PCR) (Not Detect) Coronavirus 229E (PCR) (Not Detect) SARS-CoV-2 (PCR) (Not Detecte) Coronavirus NL63 (PCR) (Not Detect) Enterobacteriac sp PCR (Not Detect) E. cloacae complex PCR (Not Detect) Enterococcus sp PCR (Not Detect) E. coli (PCR) (Not Detect) H. influenzae (PCR) (Not Detect) Human Metapneumovir PCR (Not Detect) Influenza Type A (PCR) (Not Detect) Influenza Type B (PCR) (Not Detect) Klebsiella oxytoca PCR (Not Detect) Klebsiella pneumoniae (Not Detect) List. monocytogenes PCR (Not Detect) M. pneumoniae (PCR) (Not Detect) N. meningitidis (PCR) (Not Detect) Parainfluenza 1 (PCR) (Not Detect) Parainfluenza 2 (PCR) (Not Detect) Parainfluenza 3 (PCR) (Not Detect) Parainfluenza 4 (PCR) (Not Detect) Proteus species (PCR) (Not Detect) RSV (PCR) (Not Detect) Entero/Rhino (PCR) (Not Detect) Serratia marcescens PCR (Not Detect) Staphylococcus sp PCR (Not Detect) Staph aureus (PCR) (Not Detect) mecA-Methicil Res Gene Streptococcus sp PCR (Not Detect) Group A Strep (PCR) (Not Detect) Strep agalactiae (PCR) (Not Detect) Strep pneumoniae (PCR) (Not Detect) P. aeruginosa (PCR) (Not Detect) KPC-Carbap Res Gene PCR (Not Detect) Blood Type Antibody Screen Crossmatch 01/14/23 01/14/23 01/14/23 Range/Units 20:15 22:15 22:50 WBC (4.5-11.0) X10^3/uL RBC (4.0-5.2) X10^6/uL Hgb (12.0-16.0) g/dL Hct (36-46) % MCV (80-100) fL MCH (26-34) PG MCHC (30-36) % RDW (11.6-14.8) % Plt Count (150-400) X10^3/uL Neut % (Auto) (50-75) % Lymph % (Auto) (25-40) % [place] % (Auto) (3-14) % Eos % (Auto) (2-4) % Baso % (Auto) (0-2) % Neut # (Auto) (1640-4370) /uL Lymph # (Auto) (8423-9640) /uL [place] # (Auto) (0-900) /uL Eos # (Auto) (0-450) /uL Baso # (Auto) (0-100) /uL Total Counted Seg Neutrophils % (38-70) % Band Neutrophils % (3-7) % Lymphocytes % (Manual) (25-45) % Monocytes % (Manual) (2-11) % Eosinophils % (Manual) (2-4) % Basophils % (Manual) (0-1) % Neutrophils # (Manual) (7445-5778) /uL Nucleated RBCs ( - 0) #/Diff Platelet Estimate RBC Morphology Polychromasia Poikilocytosis Anisocytosis Macrocytosis PT 11.8 (10.1-12.7) SECONDS INR 1.0 (0.9-1.3) APTT 29 (26-36) SECONDS D-Dimer 1974 H (<500) ng/ml Sodium (137-145) mmol/L Potassium (3.4-5.1) mmol/L Chloride (98-107) mmol/L Carbon Dioxide (22-32) mmol/L BUN (7-17) mg/dL Creatinine (0.52-1.04) mg/dL Estimated GFR (>60) mL/min BUN/Creatinine Ratio (6-22) Glucose (70-100) mg/dL Lactate (0.7-2.1) mmol/L Calcium (8.4-10.2) mg/dL Total Bilirubin (0.2-1.3) mg/dL Conjugated Bilirubin (0.0-0.3) md/dL Unconjugated Bilirubin (0.0-1.1) mg/dL AST (14-36) IU/L ALT (<35) IU/L Alkaline Phosphatase (38-126) U/L Lactate Dehydrogenase (120-246) U/L Total Protein (6.3-8.2) g/dL Albumin (3.5-5.0) g/dL Globulin (1.7-4.1) g/dL Albumin/Globulin Ratio (1.0-2.8) Lipase (23-300) U/L Procalcitonin 0.14 (<0.5) ng/mL Urine Color Urine Appearance Urine pH (4.5-8.0) Ur Specific [place] (1.000-1.035) Urine Protein (Negative) Urine Glucose (UA) (Negative) g/dL Urine Ketones (NEGATIVE) Urine Occult Blood (Negative) Urine Nitrate (Negative) Urine Bilirubin (NEGATIVE) Ur Bilirubin Confirm (Negative) Urine Urobilinogen (0.2) E.U./dL Ur Leukocyte Esterase (NEGATIVE) Urine RBC (0-5/HPF) Urine WBC (0-5/HPF) Ur Squamous Epith Cells (0-5/HPF) Urine Bacteria (None) Ur Culture Indicated? A. baumannii (PCR) (Not Detect) Chlamy pneumoniae PCR (Not Detect) Adenovirus (PCR) (Not Detect) B. pertussis DNA (PCR) (Not Detecte) B.parapertussis DNA PCR (Not Detecte) Pily albicans (PCR) (Not Detect) C. glabrata (PCR) (Not Detect) C. krusei (PCR) (Not Detect) C. parapsilosis (PCR) (Not Detect) C. tropicalis (PCR) (Not Detect) Coronavirus OC43 (PCR) (Not Detect) Coronavirus HKU1 (PCR) (Not Detect) Coronavirus 229E (PCR) (Not Detect) SARS-CoV-2 (PCR) (Not Detecte) Coronavirus NL63 (PCR) (Not Detect) Enterobacteriac sp PCR (Not Detect) E. cloacae complex PCR (Not Detect) Enterococcus sp PCR (Not Detect) E. coli (PCR) (Not Detect) H. influenzae (PCR) (Not Detect) Human Metapneumovir PCR (Not Detect) Influenza Type A (PCR) (Not Detect) Influenza Type B (PCR) (Not Detect) Klebsiella oxytoca PCR (Not Detect) Klebsiella pneumoniae (Not Detect) List. monocytogenes PCR (Not Detect) M. pneumoniae (PCR) (Not Detect) N. meningitidis (PCR) (Not Detect) Parainfluenza 1 (PCR) (Not Detect) Parainfluenza 2 (PCR) (Not Detect) Parainfluenza 3 (PCR) (Not Detect) Parainfluenza 4 (PCR) (Not Detect) Proteus species (PCR) (Not Detect) RSV (PCR) (Not Detect) Entero/Rhino (PCR) (Not Detect) Serratia marcescens PCR (Not Detect) Staphylococcus sp PCR (Not Detect) Staph aureus (PCR) (Not Detect) mecA-Methicil Res Gene Streptococcus sp PCR (Not Detect) Group A Strep (PCR) (Not Detect) Strep agalactiae (PCR) (Not Detect) Strep pneumoniae (PCR) (Not Detect) P. aeruginosa (PCR) (Not Detect) KPC-Carbap Res Gene PCR (Not Detect) Blood Type Antibody Screen Crossmatch 01/14/23 01/14/23 01/14/23 Range/Units 22:50 22:50 23:02 WBC 0.4 L* D (4.5-11.0) X10^3/uL RBC 3.36 L (4.0-5.2) X10^6/uL Hgb 9.8 L (12.0-16.0) g/dL Hct 33.7 L (36-46) % MCV 100.4 H (80-100) fL MCH 29.2 (26-34) PG MCHC 29.1 L (30-36) % RDW 15.4 H (11.6-14.8) % Plt Count 52 L (150-400) X10^3/uL Neut % (Auto) Not Reportable (50-75) % Lymph % (Auto) TNP (25-40) % [place] % (Auto) TNP (3-14) % Eos % (Auto) TNP (2-4) % Baso % (Auto) TNP (0-2) % Neut # (Auto) TNP (1370-5522) /uL Lymph # (Auto) TNP (4467-2971) /uL [place] # (Auto) TNP (0-900) /uL Eos # (Auto) TNP (0-450) /uL Baso # (Auto) TNP (0-100) /uL Total Counted Seg Neutrophils % (38-70) % Band Neutrophils % (3-7) % Lymphocytes % (Manual) (25-45) % Monocytes % (Manual) (2-11) % Eosinophils % (Manual) (2-4) % Basophils % (Manual) (0-1) % Neutrophils # (Manual) (0445-1259) /uL Nucleated RBCs ( - 0) #/Diff Platelet Estimate RBC Morphology Polychromasia Poikilocytosis Anisocytosis Macrocytosis PT (10.1-12.7) SECONDS INR (0.9-1.3) APTT (26-36) SECONDS D-Dimer (<500) ng/ml Sodium (137-145) mmol/L Potassium (3.4-5.1) mmol/L Chloride (98-107) mmol/L Carbon Dioxide (22-32) mmol/L BUN (7-17) mg/dL Creatinine (0.52-1.04) mg/dL Estimated GFR (>60) mL/min BUN/Creatinine Ratio (6-22) Glucose (70-100) mg/dL Lactate 2.7 H (0.7-2.1) mmol/L Calcium (8.4-10.2) mg/dL Total Bilirubin (0.2-1.3) mg/dL Conjugated Bilirubin (0.0-0.3) md/dL Unconjugated Bilirubin (0.0-1.1) mg/dL AST (14-36) IU/L ALT (<35) IU/L Alkaline Phosphatase (38-126) U/L Lactate Dehydrogenase (120-246) U/L Total Protein (6.3-8.2) g/dL Albumin (3.5-5.0) g/dL Globulin (1.7-4.1) g/dL Albumin/Globulin Ratio (1.0-2.8) Lipase (23-300) U/L Procalcitonin (<0.5) ng/mL Urine Color Urine Appearance Urine pH (4.5-8.0) Ur Specific [place] (1.000-1.035) Urine Protein (Negative) Urine Glucose (UA) (Negative) g/dL Urine Ketones (NEGATIVE) Urine Occult Blood (Negative) Urine Nitrate (Negative) Urine Bilirubin (NEGATIVE) Ur Bilirubin Confirm (Negative) Urine Urobilinogen (0.2) E.U./dL Ur Leukocyte Esterase (NEGATIVE) Urine RBC (0-5/HPF) Urine WBC (0-5/HPF) Ur Squamous Epith Cells (0-5/HPF) Urine Bacteria (None) Ur Culture Indicated? A. baumannii (PCR) Not detected (Not Detect) Chlamy pneumoniae PCR (Not Detect) Adenovirus (PCR) (Not Detect) B. pertussis DNA (PCR) (Not Detecte) B.parapertussis DNA PCR (Not Detecte) Pily albicans (PCR) Not detected (Not Detect) C. glabrata (PCR) Not detected (Not Detect) C. krusei (PCR) Not detected (Not Detect) C. parapsilosis (PCR) Not detected (Not Detect) C. tropicalis (PCR) Not detected (Not Detect) Coronavirus OC43 (PCR) (Not Detect) Coronavirus HKU1 (PCR) (Not Detect) Coronavirus 229E (PCR) (Not Detect) SARS-CoV-2 (PCR) (Not Detecte) Coronavirus NL63 (PCR) (Not Detect) Enterobacteriac sp PCR Detected H (Not Detect) E. cloacae complex PCR Not detected (Not Detect) Enterococcus sp PCR Not detected (Not Detect) E. coli (PCR) Detected H (Not Detect) H. influenzae (PCR) Not detected (Not Detect) Human Metapneumovir PCR (Not Detect) Influenza Type A (PCR) (Not Detect) Influenza Type B (PCR) (Not Detect) Klebsiella oxytoca PCR Not detected (Not Detect) Klebsiella pneumoniae Not detected (Not Detect) List. monocytogenes PCR Not detected (Not Detect) M. pneumoniae (PCR) (Not Detect) N. meningitidis (PCR) Not detected (Not Detect) Parainfluenza 1 (PCR) (Not Detect) Parainfluenza 2 (PCR) (Not Detect) Parainfluenza 3 (PCR) (Not Detect) Parainfluenza 4 (PCR) (Not Detect) Proteus species (PCR) Not detected (Not Detect) RSV (PCR) (Not Detect) Entero/Rhino (PCR) (Not Detect) Serratia marcescens PCR Not detected (Not Detect) Staphylococcus sp PCR Not detected (Not Detect) Staph aureus (PCR) Not detected (Not Detect) mecA-Methicil Res Gene Not Reportable Streptococcus sp PCR Not detected (Not Detect) Group A Strep (PCR) Not detected (Not Detect) Strep agalactiae (PCR) Not detected (Not Detect) Strep pneumoniae (PCR) Not detected (Not Detect) P. aeruginosa (PCR) Not detected (Not Detect) KPC-Carbap Res Gene PCR Not detected (Not Detect) Blood Type Antibody Screen Crossmatch 01/14/23 01/14/23 01/14/23 Range/Units 23:30 23:30 23:32 WBC 0.9 L* D (4.5-11.0) X10^3/uL RBC 3.05 L (4.0-5.2) X10^6/uL Hgb 8.9 L (12.0-16.0) g/dL Hct 30.7 L (36-46) % MCV 100.6 H (80-100) fL MCH 29.4 (26-34) PG MCHC 29.2 L (30-36) % RDW 15.2 H (11.6-14.8) % Plt Count 42 L (150-400) X10^3/uL Neut % (Auto) Not Reportable (50-75) % Lymph % (Auto) Not Reportable (25-40) % [place] % (Auto) Not Reportable (3-14) % Eos % (Auto) Not Reportable (2-4) % Baso % (Auto) Not Reportable (0-2) % Neut # (Auto) (2258-3042) /uL Lymph # (Auto) Not Reportable (1824-0177) /uL [place] # (Auto) Not Reportable (0-900) /uL Eos # (Auto) (0-450) /uL Baso # (Auto) Not Reportable (0-100) /uL Total Counted 100 Seg Neutrophils % 61.0 (38-70) % Band Neutrophils % 6.0 (3-7) % Lymphocytes % (Manual) 20.0 L (25-45) % Monocytes % (Manual) 5.0 (2-11) % Eosinophils % (Manual) 5.0 H (2-4) % Basophils % (Manual) 3.0 H (0-1) % Neutrophils # (Manual) 603 L (2453-3693) /uL Nucleated RBCs ( - 0) #/Diff Platelet Estimate RBC Morphology Normal morphology Polychromasia Poikilocytosis Anisocytosis Macrocytosis PT (10.1-12.7) SECONDS INR (0.9-1.3) APTT (26-36) SECONDS D-Dimer (<500) ng/ml Sodium (137-145) mmol/L Potassium (3.4-5.1) mmol/L Chloride (98-107) mmol/L Carbon Dioxide (22-32) mmol/L BUN (7-17) mg/dL Creatinine (0.52-1.04) mg/dL Estimated GFR (>60) mL/min BUN/Creatinine Ratio (6-22) Glucose (70-100) mg/dL Lactate (0.7-2.1) mmol/L Calcium (8.4-10.2) mg/dL Total Bilirubin (0.2-1.3) mg/dL Conjugated Bilirubin (0.0-0.3) md/dL Unconjugated Bilirubin (0.0-1.1) mg/dL AST (14-36) IU/L ALT (<35) IU/L Alkaline Phosphatase (38-126) U/L Lactate Dehydrogenase (120-246) U/L Total Protein (6.3-8.2) g/dL Albumin (3.5-5.0) g/dL Globulin (1.7-4.1) g/dL Albumin/Globulin Ratio (1.0-2.8) Lipase (23-300) U/L Procalcitonin (<0.5) ng/mL Urine Color Yellow Urine Appearance Clear Urine pH 5.5 (4.5-8.0) Ur Specific [place] <=1.005 (1.000-1.035) Urine Protein Trace H (Negative) Urine Glucose (UA) Negative (Negative) g/dL Urine Ketones Negative (NEGATIVE) Urine Occult Blood 2+ H (Negative) Urine Nitrate Positive H (Negative) Urine Bilirubin 1+ H (NEGATIVE) Ur Bilirubin Confirm Negative (Negative) Urine Urobilinogen 1.0 (0.2) E.U./dL Ur Leukocyte Esterase 2+ H (NEGATIVE) Urine RBC 1-5/hpf D (0-5/HPF) Urine WBC 5-10/hpf H (0-5/HPF) Ur Squamous Epith Cells 1-5 /hpf (0-5/HPF) Urine Bacteria Many (>30) H (None) Ur Culture Indicated? Specimen cultured A. baumannii (PCR) (Not Detect) Chlamy pneumoniae PCR Not detected (Not Detect) Adenovirus (PCR) Not detected (Not Detect) B. pertussis DNA (PCR) Not detected (Not Detecte) B.parapertussis DNA PCR Not detected (Not Detecte) Pily albicans (PCR) (Not Detect) C. glabrata (PCR) (Not Detect) C. krusei (PCR) (Not Detect) C. parapsilosis (PCR) (Not Detect) C. tropicalis (PCR) (Not Detect) Coronavirus OC43 (PCR) Not detected (Not Detect) Coronavirus HKU1 (PCR) Not detected (Not Detect) Coronavirus 229E (PCR) Not detected (Not Detect) SARS-CoV-2 (PCR) Detected H (Not Detecte) Coronavirus NL63 (PCR) Not detected (Not Detect) Enterobacteriac sp PCR (Not Detect) E. cloacae complex PCR (Not Detect) Enterococcus sp PCR (Not Detect) E. coli (PCR) (Not Detect) H. influenzae (PCR) (Not Detect) Human Metapneumovir PCR Not detected (Not Detect) Influenza Type A (PCR) Not detected (Not Detect) Influenza Type B (PCR) Not detected (Not Detect) Klebsiella oxytoca PCR (Not Detect) Klebsiella pneumoniae (Not Detect) List. monocytogenes PCR (Not Detect) M. pneumoniae (PCR) Not detected (Not Detect) N. meningitidis (PCR) (Not Detect) Parainfluenza 1 (PCR) Not detected (Not Detect) Parainfluenza 2 (PCR) Not detected (Not Detect) Parainfluenza 3 (PCR) Not detected (Not Detect) Parainfluenza 4 (PCR) Not detected (Not Detect) Proteus species (PCR) (Not Detect) RSV (PCR) Not detected (Not Detect) Entero/Rhino (PCR) Not detected (Not Detect) Serratia marcescens PCR (Not Detect) Staphylococcus sp PCR (Not Detect) Staph aureus (PCR) (Not Detect) mecA-Methicil Res Gene Streptococcus sp PCR (Not Detect) Group A Strep (PCR) (Not Detect) Strep agalactiae (PCR) (Not Detect) Strep pneumoniae (PCR) (Not Detect) P. aeruginosa (PCR) (Not Detect) KPC-Carbap Res Gene PCR (Not Detect) Blood Type Antibody Screen Crossmatch 01/14/23 01/15/23 01/15/23 Range/Units 23:40 00:30 02:00 WBC (4.5-11.0) X10^3/uL RBC (4.0-5.2) X10^6/uL Hgb (12.0-16.0) g/dL Hct (36-46) % MCV (80-100) fL MCH (26-34) PG MCHC (30-36) % RDW (11.6-14.8) % Plt Count (150-400) X10^3/uL Neut % (Auto) (50-75) % Lymph % (Auto) (25-40) % [place] % (Auto) (3-14) % Eos % (Auto) (2-4) % Baso % (Auto) (0-2) % Neut # (Auto) (3499-5932) /uL Lymph # (Auto) (3450-5292) /uL [place] # (Auto) (0-900) /uL Eos # (Auto) (0-450) /uL Baso # (Auto) (0-100) /uL Total Counted Seg Neutrophils % (38-70) % Band Neutrophils % (3-7) % Lymphocytes % (Manual) (25-45) % Monocytes % (Manual) (2-11) % Eosinophils % (Manual) (2-4) % Basophils % (Manual) (0-1) % Neutrophils # (Manual) (9091-5501) /uL Nucleated RBCs ( - 0) #/Diff Platelet Estimate RBC Morphology Polychromasia Poikilocytosis Anisocytosis Macrocytosis PT (10.1-12.7) SECONDS INR (0.9-1.3) APTT (26-36) SECONDS D-Dimer (<500) ng/ml Sodium (137-145) mmol/L Potassium (3.4-5.1) mmol/L Chloride (98-107) mmol/L Carbon Dioxide (22-32) mmol/L BUN (7-17) mg/dL Creatinine (0.52-1.04) mg/dL Estimated GFR (>60) mL/min BUN/Creatinine Ratio (6-22) Glucose (70-100) mg/dL Lactate 2.2 H (0.7-2.1) mmol/L Calcium (8.4-10.2) mg/dL Total Bilirubin 6.9 H (0.2-1.3) mg/dL Conjugated Bilirubin 2.2 H (0.0-0.3) md/dL Unconjugated Bilirubin 3.5 H (0.0-1.1) mg/dL AST 193 H (14-36) IU/L ALT 79 H (<35) IU/L Alkaline Phosphatase 102 (38-126) U/L Lactate Dehydrogenase 1285 H (120-246) U/L Total Protein 6.0 L (6.3-8.2) g/dL Albumin 3.1 L (3.5-5.0) g/dL Globulin 2.9 (1.7-4.1) g/dL Albumin/Globulin Ratio 1.1 (1.0-2.8) Lipase (23-300) U/L Procalcitonin (<0.5) ng/mL Urine Color Urine Appearance Urine pH (4.5-8.0) Ur Specific [place] (1.000-1.035) Urine Protein (Negative) Urine Glucose (UA) (Negative) g/dL Urine Ketones (NEGATIVE) Urine Occult Blood (Negative) Urine Nitrate (Negative) Urine Bilirubin (NEGATIVE) Ur Bilirubin Confirm (Negative) Urine Urobilinogen (0.2) E.U./dL Ur Leukocyte Esterase (NEGATIVE) Urine RBC (0-5/HPF) Urine WBC (0-5/HPF) Ur Squamous Epith Cells (0-5/HPF) Urine Bacteria (None) Ur Culture Indicated? A. baumannii (PCR) (Not Detect) Chlamy pneumoniae PCR (Not Detect) Adenovirus (PCR) (Not Detect) B. pertussis DNA (PCR) (Not Detecte) B.parapertussis DNA PCR (Not Detecte) Pily albicans (PCR) (Not Detect) C. glabrata (PCR) (Not Detect) C. krusei (PCR) (Not Detect) C. parapsilosis (PCR) (Not Detect) C. tropicalis (PCR) (Not Detect) Coronavirus OC43 (PCR) (Not Detect) Coronavirus HKU1 (PCR) (Not Detect) Coronavirus 229E (PCR) (Not Detect) SARS-CoV-2 (PCR) (Not Detecte) Coronavirus NL63 (PCR) (Not Detect) Enterobacteriac sp PCR (Not Detect) E. cloacae complex PCR (Not Detect) Enterococcus sp PCR (Not Detect) E. coli (PCR) (Not Detect) H. influenzae (PCR) (Not Detect) Human Metapneumovir PCR (Not Detect) Influenza Type A (PCR) (Not Detect) Influenza Type B (PCR) (Not Detect) Klebsiella oxytoca PCR (Not Detect) Klebsiella pneumoniae (Not Detect) List. monocytogenes PCR (Not Detect) M. pneumoniae (PCR) (Not Detect) N. meningitidis (PCR) (Not Detect) Parainfluenza 1 (PCR) (Not Detect) Parainfluenza 2 (PCR) (Not Detect) Parainfluenza 3 (PCR) (Not Detect) Parainfluenza 4 (PCR) (Not Detect) Proteus species (PCR) (Not Detect) RSV (PCR) (Not Detect) Entero/Rhino (PCR) (Not Detect) Serratia marcescens PCR (Not Detect) Staphylococcus sp PCR (Not Detect) Staph aureus (PCR) (Not Detect) mecA-Methicil Res Gene Streptococcus sp PCR (Not Detect) Group A Strep (PCR) (Not Detect) Strep agalactiae (PCR) (Not Detect) Strep pneumoniae (PCR) (Not Detect) P. aeruginosa (PCR) (Not Detect) KPC-Carbap Res Gene PCR (Not Detect) Blood Type O Positive Antibody Screen Negative Crossmatch See Detail 01/15/23 01/15/23 01/15/23 Range/Units 06:15 06:15 06:15 WBC 6.6 D (4.5-11.0) X10^3/uL RBC 3.15 L (4.0-5.2) X10^6/uL Hgb 9.5 L (12.0-16.0) g/dL Hct 31.6 L (36-46) % MCV 100.0 (80-100) fL MCH 30.2 (26-34) PG MCHC 30.2 (30-36) % RDW 16.2 H (11.6-14.8) % Plt Count 38 L (150-400) X10^3/uL Neut % (Auto) Not Reportable (50-75) % Lymph % (Auto) Not Reportable (25-40) % [place] % (Auto) Not Reportable (3-14) % Eos % (Auto) Not Reportable (2-4) % Baso % (Auto) Not Reportable (0-2) % Neut # (Auto) (3890-4570) /uL Lymph # (Auto) Not Reportable (1510-2168) /uL [place] # (Auto) Not Reportable (0-900) /uL Eos # (Auto) (0-450) /uL Baso # (Auto) Not Reportable (0-100) /uL Total Counted 100 Seg Neutrophils % 87.0 H (38-70) % Band Neutrophils % 7.0 (3-7) % Lymphocytes % (Manual) 2.0 L (25-45) % Monocytes % (Manual) 4.0 (2-11) % Eosinophils % (Manual) (2-4) % Basophils % (Manual) (0-1) % Neutrophils # (Manual) 6204 H (0750-3301) /uL Nucleated RBCs 2 H ( - 0) #/Diff Platelet Estimate RBC Morphology Not Reportable Polychromasia Poikilocytosis Anisocytosis 2+ H Macrocytosis PT (10.1-12.7) SECONDS INR (0.9-1.3) APTT (26-36) SECONDS D-Dimer (<500) ng/ml Sodium 137 (137-145) mmol/L Potassium 3.1 L (3.4-5.1) mmol/L Chloride 105 (98-107) mmol/L Carbon Dioxide 25 (22-32) mmol/L BUN 9 (7-17) mg/dL Creatinine 0.47 L (0.52-1.04) mg/dL Estimated GFR > 60 (>60) mL/min BUN/Creatinine Ratio 19.1 (6-22) Glucose 115 H (70-100) mg/dL Lactate 1.5 (0.7-2.1) mmol/L Calcium 7.3 L (8.4-10.2) mg/dL Total Bilirubin 11.3 H (0.2-1.3) mg/dL Conjugated Bilirubin (0.0-0.3) md/dL Unconjugated Bilirubin (0.0-1.1) mg/dL AST 180 H (14-36) IU/L ALT 81 H (<35) IU/L Alkaline Phosphatase 93 (38-126) U/L Lactate Dehydrogenase (120-246) U/L Total Protein 6.4 (6.3-8.2) g/dL Albumin 3.4 L (3.5-5.0) g/dL Globulin 3.0 (1.7-4.1) g/dL Albumin/Globulin Ratio 1.1 (1.0-2.8) Lipase (23-300) U/L Procalcitonin (<0.5) ng/mL Urine Color Urine Appearance Urine pH (4.5-8.0) Ur Specific [place] (1.000-1.035) Urine Protein (Negative) Urine Glucose (UA) (Negative) g/dL Urine Ketones (NEGATIVE) Urine Occult Blood (Negative) Urine Nitrate (Negative) Urine Bilirubin (NEGATIVE) Ur Bilirubin Confirm (Negative) Urine Urobilinogen (0.2) E.U./dL Ur Leukocyte Esterase (NEGATIVE) Urine RBC (0-5/HPF) Urine WBC (0-5/HPF) Ur Squamous Epith Cells (0-5/HPF) Urine Bacteria (None) Ur Culture Indicated? A. baumannii (PCR) (Not Detect) Chlamy pneumoniae PCR (Not Detect) Adenovirus (PCR) (Not Detect) B. pertussis DNA (PCR) (Not Detecte) B.parapertussis DNA PCR (Not Detecte) Pily albicans (PCR) (Not Detect) C. glabrata (PCR) (Not Detect) C. krusei (PCR) (Not Detect) C. parapsilosis (PCR) (Not Detect) C. tropicalis (PCR) (Not Detect) Coronavirus OC43 (PCR) (Not Detect) Coronavirus HKU1 (PCR) (Not Detect) Coronavirus 229E (PCR) (Not Detect) SARS-CoV-2 (PCR) (Not Detecte) Coronavirus NL63 (PCR) (Not Detect) Enterobacteriac sp PCR (Not Detect) E. cloacae complex PCR (Not Detect) Enterococcus sp PCR (Not Detect) E. coli (PCR) (Not Detect) H. influenzae (PCR) (Not Detect) Human Metapneumovir PCR (Not Detect) Influenza Type A (PCR) (Not Detect) Influenza Type B (PCR) (Not Detect) Klebsiella oxytoca PCR (Not Detect) Klebsiella pneumoniae (Not Detect) List. monocytogenes PCR (Not Detect) M. pneumoniae (PCR) (Not Detect) N. meningitidis (PCR) (Not Detect) Parainfluenza 1 (PCR) (Not Detect) Parainfluenza 2 (PCR) (Not Detect) Parainfluenza 3 (PCR) (Not Detect) Parainfluenza 4 (PCR) (Not Detect) Proteus species (PCR) (Not Detect) RSV (PCR) (Not Detect) Entero/Rhino (PCR) (Not Detect) Serratia marcescens PCR (Not Detect) Staphylococcus sp PCR (Not Detect) Staph aureus (PCR) (Not Detect) mecA-Methicil Res Gene Streptococcus sp PCR (Not Detect) Group A Strep (PCR) (Not Detect) Strep agalactiae (PCR) (Not Detect) Strep pneumoniae (PCR) (Not Detect) P. 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 Initially she was mildly tachycardic heart rate 1 0 1 temperature 99.9?. She suddenly became very tachycardic heart rate in the 140s she had been given Dilaudid for pain o verall appeared comfortable feels like her heart is racing. Was pretty steady [id number] thought to be possibly atrial flutter she was given 10 mg of diltiazem slowed at 9:35 p.m. then it was found that she actually has a temperature of 103? her blood pressure remained stable. However she is given sepsis fluids. Repeat blood work shows new leukopenia with WBC 0.4,, hemoglobin 9.8 hematocrit 33.7, blood work is repeated to be sure of these results and they are similar WBC 0.9, hemoglobin 8.9, hematocrit 30.7. LDH is also elevated at 1285, haptoglobin is a send out concern for hemolysis bilirubin also increased it was previously 5.0 now 6.9 all suggestive of hemolytic anemia. During this time she also started requiring 1-2 L of oxygen. Therefore D-dimer was added and CT angio added. Chest x-ray was negative, CT angio did not show any pulmonary embolism or other abnormality. Abdominal ul trasound does not show any evidence biliary dilation, CT abdomen pelvis, shows marked splenomegaly but no other abnormalities. Patient given sepsis fluid antibiotics cefepime vancomycin also given d examethasone for hypoxia and COVID. Patient's vomiting and nausea has stopped overall is looking better. Doctor new line consulted at this time due to patient's anemia would suggest and prefer patient be transferred where there is hematology. 01:00 Dr. Diaz, hematology/oncology updated patient's symptoms test results he also thinks that she is hemolyzing. Recommend blood transfusion for symptomatic so for hypoxia. He says wait for haptoglobin to return it also suggests hemolytic anemia then would need high dose prednisone of 60 mg once daily with a taper as an outpatient, he is unsure what to make of her WBC count. 8:30 a.m.. I did speak with Dr. Alaniz, hematology/oncology. Recommends holding on prednisone at this time. Patient can be admitted here for supportive care and serial H&H and may need further transfusions. 10:[address] Gayle, primary care on-call. He will admit patient. 10:00 a.m. heart rate 109, 122/58 Updated patient to be admitted here and she agrees. Updated daughter as well Critical Care Time <Sari Salinas, DO - Last Filed: 01/16/23 03:22> Critical Care Time Critical Care Time: Yes Total Critical Care Time: 60 Attestation: The high probability of a clinically significant, sudden or life threatening deterioration of the [cardiovascular] system(s) required my full and direct attention, intervention and personal management. The aggregate critical care time was 60 minutes. This time is in addition to time spent performing reported procedures but includes the following: [x] Data Review and interpretation [x] Patient assessment and monitoring of vital signs [x] Documentation [x] Medication orders and management Discharge Plan Departure Patient Disposition: Admitted as Observation Clinical Impression: Pneumonia due to COVID-19 virus, Acute hemolysis Admit Date/Time: 01/15/23 10:04 Admit Provider: Arjun Gayle
--- NOTE | 2023-01-14 21:36 | DI.CT.S_ITS ---
PROCEDURE: CT ABDOMEN PELVIS W CON INDICATIONS: vomiting ruq pain high bili TECHNIQUE: After the administration of IV contrast, axial sections were acquired from the lung bases to the pubic symphysis. Coronal and sagittal reformats were performed. For radiation dose reduction, the following was used: automated exposure control, adjustment of mA and/or kV according to patient size. COMPARISON: [facility], CT, CT ABDOMEN PELVIS W CON, 09/29/2018, 8:45. FINDINGS: Image quality: Excellent. Lung bases: There is minimal dependent atelectasis. Heart: Heart is normal in size. ABDOMEN: Liver: No mass lesion. Gallbladder: Surgically absent. Biliary ducts: No biliary ductal dilatation. No calcified common duct stones. Pancreas: Unremarkable. Spleen: There is splenomegaly redemonstrated, with the spleen measuring up to 18.8 cm in craniocaudal dimension, increased from 17.3 cm previously. Adrenal Glands: No adrenal nodules. Kidneys and Ureters: No hydronephrosis. Stomach and Bowel: Stomach, small bowel loops, and colon are normal in caliber and wall thickness. The appendix is normal. There is colonic diverticulosis without acute diverticulitis. Peritoneum: No abnormal intraperitoneal fluid. No free air. Ventral Wall: No hernia. Abdominal Nodes: No retroperitoneal or mesenteric adenopathy by size criteria. Vessels: Aorta and inferior vena cava are normal in size. PELVIS: Pelvic Organs: Unremarkable. Bladder: Unremarkable. Pelvic Nodes: No enlarged lymph nodes. Miscellaneous: No inguinal hernias are seen. Bones: Visualized osseous structures demonstrate no suspicious focal lesions. IMPRESSION: 1. Marked splenomegaly redemonstrated. 2. Surgical absence of the gallbladder. 3. No evidence of biliary ductal dilatation or calcified common duct stones. 4. No evidence of appendicitis or obstructive uropathy. Dictated by: Garrett Blanco M.D. on 01/14/2023 at 23:02 Approved by: Garrett Blanco M.D. on 01/14/2023 at 23:05
--- NOTE | 2023-01-14 21:36 | DI.US.S_ITS ---
PROCEDURE: US ABDOMEN LIMITED INDICATIONS: HIGH BILI, VOMITING, RUQ TECHNIQUE: Real-time focused scanning was performed of the abdomen, with image documentation. COMPARISON: [facility], CT, CT ABDOMEN PELVIS W CON, 01/14/2023, 21:54. [facility], US, US ABDOMEN COMPLETE, 09/10/2018, 4:18. FINDINGS: The liver demonstrates increased no focal mass lesions. There is increased parenchymal echogenicity suggestive of mild fatty infiltration. The gallbladder is surgically absent. No intra or extrahepatic biliary ductal dilatation. Pancreas not well visualized. IMPRESSION: 1. No evidence of biliary ductal dilatation. Dictated by: Garrett Blanco M.D. on 01/14/2023 at 23:19 Approved by: Garrett Blanco M.D. on 01/14/2023 at 23:21
[2023-01-14] MEDS: HYDROMORPHONE 0.5 MG INJ IV (21:47)
[2023-01-14] MEDS: dilTIAZem 5 MG/ML SDV 10 MG IV (22:34)
[2023-01-14 22:49] LABS: Procalcitonin 0.14 ng/mL (<0.5)
--- NOTE | 2023-01-14 22:55 | DI.RAD.S_ITS ---
PROCEDURE: XR CHEST 1V INDICATIONS: short of breath TECHNIQUE: One view of the chest was acquired. COMPARISON: [facility], , CHEST 2 VIEW, 11/18/2016, 15:45. FINDINGS: Surgical changes and devices: None. Lungs and pleura: Lungs are clear. No pleural effusions or pneumothorax. Mediastinum: Mediastinal contours appear normal. Heart size is normal. Bones and chest wall: No suspicious bony lesions. Overlying soft tissues appear unremarkable. IMPRESSION: 1. No acute cardiopulmonary disease. Dictated by: Garrett Blanco M.D. on 01/15/2023 at 0:12 Approved by: Garrett Blanco M.D. on 01/15/2023 at 0:12
[2023-01-14] MEDS: ACETAMINOPHEN 325 MG TABLET 975 MG PO (23:02)
[2023-01-14 23:06] LABS: D Dimer 1974 ng/ml (<500)
[2023-01-14 23:17] LABS: Lactate (Lactic Acid) 2.7 mmol/L (0.7-2.1)
[2023-01-14 23:20] LABS: Hematocrit 33.7 % (36-46); Hemoglobin 9.8 g/dL (12.0-16.0); Mean Corpuscular HGB Conc 29.1 % (30-36); Mean Corpuscular Hemoglobin 29.2 PG (26-34); Mean Corpuscular Volume 100.4 fL (80-100); Platelet Count 52 X10^3/uL (150-400); Red Blood Cell Count 3.36 X10^6/uL (4.0-5.2); Red Cell Distribution Width 15.4 % (11.6-14.8)
[2023-01-14 23:25] LABS: White Blood Cell Count 0.4 X10^3/uL (4.5-11.0)
[2023-01-14] MEDS: LACTATED RINGERS 1300 ML IV (23:29)
[2023-01-14 23:39] LABS: Appearance Urine UA CLEAR; Bilirubin Urine UA 1+ (NEGATIVE); Color Urine UA YELLOW; Glucose Urine UA NEGATIVE (Negative); Ketones Urine UA NEGATIVE (NEGATIVE); Leukocyte Esterase Urine UA 2+ (NEGATIVE); Nitrite Urine UA POSITIVE (Negative); Occult Blood Urine UA 2+ (Negative); Protein Urine UA TRACE (Negative); Specific Gravity Urine UA <=1.005 (1.000-1.035)
[2023-01-14 23:45] LABS: Hematocrit 30.7 % (36-46); Hemoglobin 8.9 g/dL (12.0-16.0); Mean Corpuscular HGB Conc 29.2 % (30-36); Mean Corpuscular Hemoglobin 29.4 PG (26-34); Mean Corpuscular Volume 100.6 fL (80-100); Platelet Count 42 X10^3/uL (150-400); Red Blood Cell Count 3.05 X10^6/uL (4.0-5.2); Red Cell Distribution Width 15.2 % (11.6-14.8)
[2023-01-14 23:47] LABS: White Blood Cell Count 0.9 X10^3/uL (4.5-11.0)
[2023-01-14 23:48] LABS: Add Manual Diff / Slide Review YES
[2023-01-14 23:55] LABS: pH Urine UA 5.5 (4.5-8.0)
[2023-01-14 23:56] LABS: Bacteria Urine Many (>30); Culture Indicated Urine Specimen Cultured; Ictotest Urine Negative (Negative); RBC Urine 1-5/HPF (0-5/HPF); Squamous Epithelial Cell Urine 1-5 /HPF (0-5/HPF); WBC Urine 5-10/HPF (0-5/HPF)
[2023-01-15] VITALS (30 sets, daily range): BP systolic 95–127; BP diastolic 48–82; PULSE 92–131; RESP 16–33; TEMP 36.7–37.7; O2SAT 90–98; BMI 24.5
--- NOTE | 2023-01-15 00:05 | DI.CT.S_ITS ---
PROCEDURE: CT ANGIO CHEST PE PROTOCOL INDICATIONS: hypoxic TECHNIQUE: After the administration of intravenous contrast, 2 mm thick sections acquired from the pulmonary apices to the posterior costophrenic angles. 3-dimensional maximum intensity projection (MIP) coronal and sagittal reformats were then acquired through the thorax. For radiation dose reduction, the following was used: automated exposure control, adjustment of mA and/or kV according to patient size. COMPARISON: [facility], CT, CT ABDOMEN PELVIS W CON, 09/29/2018, 8:45. FINDINGS: Image quality: Excellent. Pulmonary arteries: Pulmonary arteries are normal in size, and demonstrate no intraluminal filling defects to suggest central pulmonary embolism. Lower Neck: No lymphadenopathy by size criteria. Thyroid: Visualized thyroid demonstrates no discrete nodules. Axillae: No lymphadenopathy by size criteria. Chest Wall: Unremarkable. Bones: Visualized osseous structures demonstrate no suspicious lesions. Lungs and Airways: No acute consolidation. No suspicious pulmonary nodules. There is mild dependent atelectasis. The trachea and central airways are patent. Pleura: No pneumothorax or pleural effusions. Heart: Heart size is normal. No pericardial effusion. Thoracic Vessels: The thoracic aorta is normal in size. Mediastinum and Alix: There are multiple mildly enlarged mediastinal lymph nodes. This includes a food service representative precarinal node measuring up to 1.0 cm on series 4, image 42. Esophagus: No wall thickening. No hiatal hernia. Abdomen: Visualized upper abdomen demonstrates splenomegaly, with the visualized spleen measuring up to 16.0 cm. IMPRESSION: 1. No evidence of pulmonary embolism. 2. No acute airspace consolidation. 3. Splenomegaly redemonstrated. 4. Mildly enlarged mediastinal lymph nodes are nonspecific and may be reactive. Dictated by: Garrett Blanco M.D. on 01/15/2023 at 1:18 Approved by: Garrett Blanco M.D. on 01/15/2023 at 1:26
[2023-01-15] MEDS: CEFEPIME 2 GM in SODIUM CHLORIDE 0.9% 100 ML IV (00:12)
[2023-01-15 00:18] LABS: Prothrombin Time 11.8 SECONDS (10.1-12.7)
[2023-01-15 00:21] LABS: PTT Partial Thromboplastin Tim 29 SECONDS (26-36)
[2023-01-15 00:23] LABS: Albumin 3.1 g/dL (3.5-5.0); Albumin Globulin Ratio 1.1 (1.0-2.8); Alkaline Phosphatase 102 U/L (38-126); Aspartate Aminotransferase 193 IU/L (14-36); Bilirubin Conjugated 2.2 md/dL (0.0-0.3); Bilirubin Total 6.9 mg/dL (0.2-1.3); Bilirubin Unconjugated 3.5 mg/dL (0.0-1.1); Globulin 2.9 g/dL (1.7-4.1); HEMOLYSIS < 15 (0-50)
[2023-01-15 00:30] LABS: Lactate Dehydrogenase 1285 U/L (120-246)
[2023-01-15 00:31] LABS: Alanine Aminotransferase 79 IU/L (<35)
[2023-01-15 00:31] LABS: Adenovirus Not Detected (Not Detect)
[2023-01-15 00:32] LABS: Coronavirus 229E Not Detected (Not Detect); Coronavirus HKU1 Not Detected (Not Detect); Coronavirus NL 63 Not Detected (Not Detect); Coronavirus OC43 Not Detected (Not Detect); Human Metapneumovirus Not Detected (Not Detect); Human Rhinovirus/Enterovirus Not Detected (Not Detect); Influenza A Not Detected (Not Detect); Influenza B Not Detected (Not Detect); SARS- CoV-2 Detected (Not Detecte)
[2023-01-15 00:33] LABS: B. parapertussis Not Detected (Not Detecte); Bordetella pertussis Not Detected (Not Detecte); Chlamydophila pneumoniae Not Detected (Not Detect); Mycoplasma pneumoniae Not Detected (Not Detect); Parainfluenza Virus 1 Not Detected (Not Detect); Parainfluenza Virus 2 Not Detected (Not Detect); Parainfluenza Virus 3 Not Detected (Not Detect); Parainfluenza Virus 4 Not Detected (Not Detect); Respiratory Syncytial Virus Not Detected (Not Detect)
[2023-01-15 01:00] LABS: Reflexed Lactate in 2 Hours Y
[2023-01-15] MEDS: DEXAMETHASONE 10 MG/ML VIAL 6 MG IV (01:30)
[2023-01-15 02:18] LABS: Lactate 2HR (Lactic Acid Rflx) 2.2 mmol/L (0.7-2.1)
[2023-01-15 06:38] LABS: Lactate (Lactic Acid) 1.5 mmol/L (0.7-2.1)
[2023-01-15 06:39] LABS: Alanine Aminotransferase 81 IU/L (<35); Albumin 3.4 g/dL (3.5-5.0); Albumin Globulin Ratio 1.1 (1.0-2.8); Alkaline Phosphatase 93 U/L (38-126); Aspartate Aminotransferase 180 IU/L (14-36); BUN Creatinine Ratio 19.1 (6-22); Bilirubin Total 11.3 mg/dL (0.2-1.3); Blood Urea Nitrogen 9 mg/dL (7-17); Calcium 7.3 mg/dL (8.4-10.2); Carbon Dioxide 25 mmol/L (22-32); Chloride 105 mmol/L (98-107); Estimated Glomerular Filt Rate > 60 mL/min (>60); Glucose 115 mg/dL (70-100); HEMOLYSIS < 15 (0-50); Potassium 3.1 mmol/L (3.4-5.1); Sodium 137 mmol/L (137-145); Total Protein 6.4 g/dL (6.3-8.2)
[2023-01-15 06:46] LABS: Hematocrit 31.6 % (36-46); Hemoglobin 9.5 g/dL (12.0-16.0); Mean Corpuscular HGB Conc 30.2 % (30-36); Mean Corpuscular Hemoglobin 30.2 PG (26-34); Platelet Count 38 X10^3/uL (150-400); Red Blood Cell Count 3.15 X10^6/uL (4.0-5.2); Red Cell Distribution Width 16.2 % (11.6-14.8); White Blood Cell Count 6.6 X10^3/uL (4.5-11.0)
[2023-01-15 07:00] LABS: Add Manual Diff / Slide Review YES
[2023-01-15 07:15] LABS: Neutrophils Absolute Manual 603 /uL (3000-5900); Total Cells Counted 100
[2023-01-15 07:16] LABS: RBC Morphology Normal Morphology
[2023-01-15 07:19] LABS: Anisocytosis 2+; Neutrophils Absolute Manual 6204 /uL (3000-5900); Nucleated Red Blood Cells 2 #/Diff; Total Cells Counted 100
[2023-01-15] MEDS: ACETAMINOPHEN 325 MG TABLET 975 MG PO (08:32)
--- NOTE | 2023-01-15 10:37 | P.HP_ITS ---
History of Present Illness History of Present Illness Date Patient Seen: 01/15/23 Time Patient Seen: 10:37 Chief complaint: covid +, abd pain, vomiting Narrative: 47-year-old female who normally sees Dr. Catalina Smith admitted via emergency department with COVID pneumonia with hypoxia as well as evidence of increased hemolysis. Patient presented with abdominal pain with vomiting. Found to be somewhat more anemic than usual, as well as leukopenic and her known thrombocytopenia. This was felt to be due to increased hemolysis secondary to known COVID infection. Patient tested positive for COVID several days prior to presentation and was not feeling particularly ill until the abdominal symptoms etcetera presented Hematology was consulted over the phone by the emergency department they recommended transfusion. She was initially given some corticosteroids for the hemolysis, but Hematology did not feel that was necessary for that purpose. She seems to have responded to transfusion with stable hemoglobin/hematocrit. For whatever reason she was leukopenic but that responded back to normal as well. Her thrombocytopenia has remained stable She is admitted for continued monitoring primarily of her hemoglobin/hematocrit as an indicator of her degree of hemolysis She also has small degree hypoxia requiring oxygen replacement therapy in the setting of COVID pneumonia. Fortunately evaluation of her lungs including chest CT angiography fails to demonstrate any evidence of serious abnormality, such as serious consolidation etcetera. No evidence of pulmonary embolism at this point. 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) Splenomegaly Thrombocytopenia (05/15/11) Surgical History Anesthesia Status post laparoscopic cholecystectomy (~12/2013) Family & Social History Family History Mother Age: 65 Diabetes mellitus Social History: household members family Safety & Behavioral: Feels Safe in Current Yes Environment Been Physically Hurt or No Threatened By a Person Tobacco & Substance use: Smoking Status Never smoker alcohol intake current alcohol intake frequency 0-2 drinks per day Substance Use Type does not use Meds Home Medications and Allergies Home Medications Medication Instructions Recorded Confirmed Type No Known Home Medications 01/15/23 01/15/23 History Allergies Allergy/AdvReac Type Severity Reaction Status Date / Time No Known Drug Allergies Allergy Verified 03/12/22 11:02 Review of Systems Review of Systems ROS: Yes All systems reviewed with the patient and are negative except as otherwise documented Exam Vital Signs (past 8 hours): - 01/15/23 02:54 01/15/23 03:09 01/15/23 03:00 Temperature 99.6 F 99.6 F Pulse Rate 129 H 127 H Respiratory Rate 16 28 H Blood Pressure 106/53 L Pulse Oximetry 91 Oxygen Delivery Method 01/15/23 03:09 01/15/23 03:09 01/15/23 03:30 Temperature Pulse Rate 128 H Respiratory Rate 22 Blood Pressure 106/53 L 106/56 L Pulse Oximetry 92 Oxygen Delivery Method 01/15/23 03:30 01/15/23 05:11 01/15/23 04:00 Temperature 98.1 F Pulse Rate 123 H 119 H Respiratory Rate 26 H 20 Blood Pressure 99/58 L 118/57 L Pulse Oximetry 92 Oxygen Delivery Method 01/15/23 04:00 01/15/23 04:30 01/15/23 04:30 Temperature Pulse Rate 124 H 122 H Respiratory Rate 26 H 28 H Blood Pressure 106/59 L Pulse Oximetry 92 92 Oxygen Delivery Method 01/15/23 05:00 01/15/23 05:00 01/15/23 05:30 Temperature Pulse Rate 122 H Respiratory Rate 29 H Blood Pressure 99/58 L 108/58 L Pulse Oximetry 93 Oxygen Delivery Method 01/15/23 05:30 01/15/23 06:00 01/15/23 06:00 Temperature Pulse Rate 118 H 121 H Respiratory Rate 27 H 29 H Blood Pressure 127/59 L Pulse Oximetry 93 93 Oxygen Delivery Method 01/15/23 06:30 01/15/23 06:30 01/15/23 07:00 Temperature Pulse Rate 119 H Respiratory Rate 26 H Blood Pressure 106/52 L 108/61 Pulse Oximetry 93 Oxygen Delivery Method 01/15/23 07:00 01/15/23 07:30 01/15/23 07:30 Temperature Pulse Rate 124 H 118 H Respiratory Rate 26 H Blood Pressure 109/56 L Pulse Oximetry 95 93 Oxygen Delivery Method 01/15/23 08:00 01/15/23 08:01 01/15/23 08:01 Temperature Pulse Rate 126 H 121 H Respiratory Rate 29 H 30 H Blood Pressure 121/82 Pulse Oximetry 93 93 Oxygen Delivery Method Room Air 01/15/23 08:30 01/15/23 08:30 01/15/23 09:00 Temperature Pulse Rate 117 H Respiratory Rate 31 H Blood Pressure 121/59 L 114/58 L Pulse Oximetry 93 Oxygen Delivery Method 01/15/23 09:00 01/15/23 09:30 01/15/23 09:30 Temperature Pulse Rate 114 H 113 H Respiratory Rate 32 H Blood Pressure 113/58 L Pulse Oximetry 93 93 Oxygen Delivery Method 01/15/23 10:00 01/15/23 10:00 Temperature Pulse Rate 105 H Respiratory Rate 25 H Blood Pressure 122/59 L Pulse Oximetry 93 Oxygen Delivery Method Oxygen Delivery Method Room Air Oxygen Flow Rate 2 Narrative Exam Narrative: Non acutely ill-appearing female in no obvious distress lying in hospital bed HEENT unremarkable Lungs-clear with good breath sounds Heart-regular rate and rhythm Abdomen-benign Objective Labs 01/15/23 06:15 01/15/23 06:15 Labs: Laboratory Results - last 24 hr 01/14/23 01/14/23 01/14/23 20:15 20:15 20:15 WBC 6.0 RBC 3.94 L Hgb 11.3 L Hct 38.9 MCV 98.7 MCH 28.7 MCHC 29.1 L RDW 15.4 H Plt Count 69 L Neut % (Auto) 79.9 H Lymph % (Auto) 15.6 L [place] % (Auto) 2.6 L Eos % (Auto) 1.4 L Baso % (Auto) 0.5 Neut # (Auto) 4800 Lymph # (Auto) 900 L [place] # (Auto) 200 Eos # (Auto) 100 Baso # (Auto) 0 Total Counted Seg Neutrophils % Band Neutrophils % Lymphocytes % (Manual) Monocytes % (Manual) Eosinophils % (Manual) Basophils % (Manual) Neutrophils # (Manual) Nucleated RBCs Platelet Estimate Decreased on smear RBC Morphology See below Polychromasia 1+ H Poikilocytosis 1+ H Anisocytosis 1+ H Macrocytosis 1+ H PT INR APTT D-Dimer Sodium 136 L Potassium 3.4 Chloride 101 Carbon Dioxide 27 BUN 6 L Creatinine 0.42 L Estimated GFR > 60 BUN/Creatinine Ratio 14.3 Glucose 108 H Lactate 1.0 Calcium 8.4 Total Bilirubin 5.0 H Conjugated Bilirubin Unconjugated Bilirubin AST 102 H ALT 50 H Alkaline Phosphatase 91 Lactate Dehydrogenase Total Protein 8.5 H Albumin 4.7 Globulin 3.8 Albumin/Globulin Ratio 1.2 Lipase 116 Procalcitonin Urine Color Urine Appearance Urine pH Ur Specific [place] Urine Protein Urine Glucose (UA) Urine Ketones Urine Occult Blood Urine Nitrate Urine Bilirubin Ur Bilirubin Confirm Urine Urobilinogen Ur Leukocyte Esterase Urine RBC Urine WBC Ur Squamous Epith Cells Urine Bacteria Ur Culture Indicated? Chlamy pneumoniae PCR Adenovirus (PCR) B. pertussis DNA (PCR) B.parapertussis DNA PCR Coronavirus OC43 (PCR) Coronavirus HKU1 (PCR) Coronavirus 229E (PCR) SARS-CoV-2 (PCR) Coronavirus NL63 (PCR) Human Metapneumovir PCR Influenza Type A (PCR) Influenza Type B (PCR) M. pneumoniae (PCR) Parainfluenza 1 (PCR) Parainfluenza 2 (PCR) Parainfluenza 3 (PCR) Parainfluenza 4 (PCR) RSV (PCR) Entero/Rhino (PCR) Blood Type Antibody Screen Crossmatch 01/14/23 01/14/23 01/14/23 20:15 22:15 22:50 WBC RBC Hgb Hct MCV MCH MCHC RDW Plt Count Neut % (Auto) Lymph % (Auto) [place] % (Auto) Eos % (Auto) Baso % (Auto) Neut # (Auto) Lymph # (Auto) [place] # (Auto) Eos # (Auto) Baso # (Auto) Total Counted Seg Neutrophils % Band Neutrophils % Lymphocytes % (Manual) Monocytes % (Manual) Eosinophils % (Manual) Basophils % (Manual) Neutrophils # (Manual) Nucleated RBCs Platelet Estimate RBC Morphology Polychromasia Poikilocytosis Anisocytosis Macrocytosis PT 11.8 INR 1.0 APTT 29 D-Dimer 1974 H Sodium Potassium Chloride Carbon Dioxide BUN Creatinine Estimated GFR BUN/Creatinine Ratio Glucose Lactate Calcium Total Bilirubin Conjugated Bilirubin Unconjugated Bilirubin AST ALT Alkaline Phosphatase Lactate Dehydrogenase Total Protein Albumin Globulin Albumin/Globulin Ratio Lipase Procalcitonin 0.14 Urine Color Urine Appearance Urine pH Ur Specific [place] Urine Protein Urine Glucose (UA) Urine Ketones Urine Occult Blood Urine Nitrate Urine Bilirubin Ur Bilirubin Confirm Urine Urobilinogen Ur Leukocyte Esterase Urine RBC Urine WBC Ur Squamous Epith Cells Urine Bacteria Ur Culture Indicated? Chlamy pneumoniae PCR Adenovirus (PCR) B. pertussis DNA (PCR) B.parapertussis DNA PCR Coronavirus OC43 (PCR) Coronavirus HKU1 (PCR) Coronavirus 229E (PCR) SARS-CoV-2 (PCR) Coronavirus NL63 (PCR) Human Metapneumovir PCR Influenza Type A (PCR) Influenza Type B (PCR) M. pneumoniae (PCR) Parainfluenza 1 (PCR) Parainfluenza 2 (PCR) Parainfluenza 3 (PCR) Parainfluenza 4 (PCR) RSV (PCR) Entero/Rhino (PCR) Blood Type Antibody Screen Crossmatch 01/14/23 01/14/23 01/14/23 22:50 22:50 23:30 WBC 0.4 L* D RBC 3.36 L Hgb 9.8 L Hct 33.7 L MCV 100.4 H MCH 29.2 MCHC 29.1 L RDW 15.4 H Plt Count 52 L Neut % (Auto) Not Reportable Lymph % (Auto) TNP [place] % (Auto) TNP Eos % (Auto) TNP Baso % (Auto) TNP Neut # (Auto) TNP Lymph # (Auto) TNP [place] # (Auto) TNP Eos # (Auto) TNP Baso # (Auto) TNP Total Counted Seg Neutrophils % Band Neutrophils % Lymphocytes % (Manual) Monocytes % (Manual) Eosinophils % (Manual) Basophils % (Manual) Neutrophils # (Manual) Nucleated RBCs Platelet Estimate RBC Morphology Polychromasia Poikilocytosis Anisocytosis Macrocytosis PT INR APTT D-Dimer Sodium Potassium Chloride Carbon Dioxide BUN Creatinine Estimated GFR BUN/Creatinine Ratio Glucose Lactate 2.7 H Calcium Total Bilirubin Conjugated Bilirubin Unconjugated Bilirubin AST ALT Alkaline Phosphatase Lactate Dehydrogenase Total Protein Albumin Globulin Albumin/Globulin Ratio Lipase Procalcitonin Urine Color Urine Appearance Urine pH Ur Specific [place] Urine Protein Urine Glucose (UA) Urine Ketones Urine Occult Blood Urine Nitrate Urine Bilirubin Ur Bilirubin Confirm Urine Urobilinogen Ur Leukocyte Esterase Urine RBC Urine WBC Ur Squamous Epith Cells Urine Bacteria Ur Culture Indicated? Chlamy pneumoniae PCR Not detected Adenovirus (PCR) Not detected B. pertussis DNA (PCR) Not detected B.parapertussis DNA PCR Not detected Coronavirus OC43 (PCR) Not detected Coronavirus HKU1 (PCR) Not detected Coronavirus 229E (PCR) Not detected SARS-CoV-2 (PCR) Detected H Coronavirus NL63 (PCR) Not detected Human Metapneumovir PCR Not detected Influenza Type A (PCR) Not detected Influenza Type B (PCR) Not detected M. pneumoniae (PCR) Not detected Parainfluenza 1 (PCR) Not detected Parainfluenza 2 (PCR) Not detected Parainfluenza 3 (PCR) Not detected Parainfluenza 4 (PCR) Not detected RSV (PCR) Not detected Entero/Rhino (PCR) Not detected Blood Type Antibody Screen Crossmatch 01/14/23 01/14/23 01/14/23 23:30 23:32 23:40 WBC 0.9 L* D RBC 3.05 L Hgb 8.9 L Hct 30.7 L MCV 100.6 H MCH 29.4 MCHC 29.2 L RDW 15.2 H Plt Count 42 L Neut % (Auto) Not Reportable Lymph % (Auto) Not Reportable [place] % (Auto) Not Reportable Eos % (Auto) Not Reportable Baso % (Auto) Not Reportable Neut # (Auto) Lymph # (Auto) Not Reportable [place] # (Auto) Not Reportable Eos # (Auto) Baso # (Auto) Not Reportable Total Counted 100 Seg Neutrophils % 61.0 Band Neutrophils % 6.0 Lymphocytes % (Manual) 20.0 L Monocytes % (Manual) 5.0 Eosinophils % (Manual) 5.0 H Basophils % (Manual) 3.0 H Neutrophils # (Manual) 603 L Nucleated RBCs Platelet Estimate RBC Morphology Normal morphology Polychromasia Poikilocytosis Anisocytosis Macrocytosis PT INR APTT D-Dimer Sodium Potassium Chloride Carbon Dioxide BUN Creatinine Estimated GFR BUN/Creatinine Ratio Glucose Lactate Calcium Total Bilirubin 6.9 H Conjugated Bilirubin 2.2 H Unconjugated Bilirubin 3.5 H AST 193 H ALT 79 H Alkaline Phosphatase 102 Lactate Dehydrogenase 1285 H Total Protein 6.0 L Albumin 3.1 L Globulin 2.9 Albumin/Globulin Ratio 1.1 Lipase Procalcitonin Urine Color Yellow Urine Appearance Clear Urine pH 5.5 Ur Specific [place] <=1.005 Urine Protein Trace H Urine Glucose (UA) Negative Urine Ketones Negative Urine Occult Blood 2+ H Urine Nitrate Positive H Urine Bilirubin 1+ H Ur Bilirubin Confirm Negative Urine Urobilinogen 1.0 Ur Leukocyte Esterase 2+ H Urine RBC 1-5/hpf D Urine WBC 5-10/hpf H Ur Squamous Epith Cells 1-5 /hpf Urine Bacteria Many (>30) H Ur Culture Indicated? Specimen cultured Chlamy pneumoniae PCR Adenovirus (PCR) B. pertussis DNA (PCR) B.parapertussis DNA PCR Coronavirus OC43 (PCR) Coronavirus HKU1 (PCR) Coronavirus 229E (PCR) SARS-CoV-2 (PCR) Coronavirus NL63 (PCR) Human Metapneumovir PCR Influenza Type A (PCR) Influenza Type B (PCR) M. pneumoniae (PCR) Parainfluenza 1 (PCR) Parainfluenza 2 (PCR) Parainfluenza 3 (PCR) Parainfluenza 4 (PCR) RSV (PCR) Entero/Rhino (PCR) Blood Type Antibody Screen Crossmatch 01/15/23 01/15/23 01/15/23 00:30 02:00 06:15 WBC 6.6 D RBC 3.15 L Hgb 9.5 L Hct 31.6 L MCV 100.0 MCH 30.2 MCHC 30.2 RDW 16.2 H Plt Count 38 L Neut % (Auto) Not Reportable Lymph % (Auto) Not Reportable [place] % (Auto) Not Reportable Eos % (Auto) Not Reportable Baso % (Auto) Not Reportable Neut # (Auto) Lymph # (Auto) Not Reportable [place] # (Auto) Not Reportable Eos # (Auto) Baso # (Auto) Not Reportable Total Counted 100 Seg Neutrophils % 87.0 H Band Neutrophils % 7.0 Lymphocytes % (Manual) 2.0 L Monocytes % (Manual) 4.0 Eosinophils % (Manual) Basophils % (Manual) Neutrophils # (Manual) 6204 H Nucleated RBCs 2 H Platelet Estimate RBC Morphology Not Reportable Polychromasia Poikilocytosis Anisocytosis 2+ H Macrocytosis PT INR APTT D-Dimer Sodium Potassium Chloride Carbon Dioxide BUN Creatinine Estimated GFR BUN/Creatinine Ratio Glucose Lactate 2.2 H Calcium Total Bilirubin Conjugated Bilirubin Unconjugated Bilirubin AST ALT Alkaline Phosphatase Lactate Dehydrogenase Total Protein Albumin Globulin Albumin/Globulin Ratio Lipase Procalcitonin Urine Color Urine Appearance Urine pH Ur Specific [place] Urine Protein Urine Glucose (UA) Urine Ketones Urine Occult Blood Urine Nitrate Urine Bilirubin Ur Bilirubin Confirm Urine Urobilinogen Ur Leukocyte Esterase Urine RBC Urine WBC Ur Squamous Epith Cells Urine Bacteria Ur Culture Indicated? Chlamy pneumoniae PCR Adenovirus (PCR) B. pertussis DNA (PCR) B.parapertussis DNA PCR Coronavirus OC43 (PCR) Coronavirus HKU1 (PCR) Coronavirus 229E (PCR) SARS-CoV-2 (PCR) Coronavirus NL63 (PCR) Human Metapneumovir PCR Influenza Type A (PCR) Influenza Type B (PCR) M. pneumoniae (PCR) Parainfluenza 1 (PCR) Parainfluenza 2 (PCR) Parainfluenza 3 (PCR) Parainfluenza 4 (PCR) RSV (PCR) Entero/Rhino (PCR) Blood Type O Positive Antibody Screen Negative Crossmatch See Detail 01/15/23 01/15/23 06:15 06:15 WBC RBC Hgb Hct MCV MCH MCHC RDW Plt Count Neut % (Auto) Lymph % (Auto) [place] % (Auto) Eos % (Auto) Baso % (Auto) Neut # (Auto) Lymph # (Auto) [place] # (Auto) Eos # (Auto) Baso # (Auto) Total Counted Seg Neutrophils % Band Neutrophils % Lymphocytes % (Manual) Monocytes % (Manual) Eosinophils % (Manual) Basophils % (Manual) Neutrophils # (Manual) Nucleated RBCs Platelet Estimate RBC Morphology Polychromasia Poikilocytosis Anisocytosis Macrocytosis PT INR APTT D-Dimer Sodium 137 Potassium 3.1 L Chloride 105 Carbon Dioxide 25 BUN 9 Creatinine 0.47 L Estimated GFR > 60 BUN/Creatinine Ratio 19.1 Glucose 115 H Lactate 1.5 Calcium 7.3 L Total Bilirubin 11.3 H Conjugated Bilirubin Unconjugated Bilirubin AST 180 H ALT 81 H Alkaline Phosphatase 93 Lactate Dehydrogenase Total Protein 6.4 Albumin 3.4 L Globulin 3.0 Albumin/Globulin Ratio 1.1 Lipase Procalcitonin Urine Color Urine Appearance Urine pH Ur Specific [place] Urine Protein Urine Glucose (UA) Urine Ketones Urine Occult Blood Urine Nitrate Urine Bilirubin Ur Bilirubin Confirm Urine Urobilinogen Ur Leukocyte Esterase Urine RBC Urine WBC Ur Squamous Epith Cells Urine Bacteria Ur Culture Indicated? Chlamy pneumoniae PCR Adenovirus (PCR) B. pertussis DNA (PCR) B.parapertussis DNA PCR Coronavirus OC43 (PCR) Coronavirus HKU1 (PCR) Coronavirus 229E (PCR) SARS-CoV-2 (PCR) Coronavirus NL63 (PCR) Human Metapneumovir PCR Influenza Type A (PCR) Influenza Type B (PCR) M. pneumoniae (PCR) Parainfluenza 1 (PCR) Parainfluenza 2 (PCR) Parainfluenza 3 (PCR) Parainfluenza 4 (PCR) RSV (PCR) Entero/Rhino (PCR) Blood Type Antibody Screen Crossmatch Assessment & Plan Assessment & Plan narrative: 1. COVID pneumonia-patient with COVID pneumonia with mild acute respiratory failure, requiring low-level oxygen therapy to maintain oxygen saturation at 92+ %. Given this and her comorbidities I think she would benefit from IV antiviral in the form of remdesivir and would also give her dexamethasone given this i ndication as well as the acute hemolysis. 2. Acute hemolysis-likely this was triggered by the COVID infection. Numbers seem to be relatively stable. Hematology did not feel like she required cortic osteroids but I think she has 2 indications for corticosteroids and so she is going to receive dexamethasone for her COVID as well as for this purpose. Continue to monitor numbers over time and transfuse as necessary to trying keep her hemoglobin greater than 8 3. Abdominal pain with nausea vomiting-no clear evidence of any significant abnormality based on lab work. Likely secondary to her acute illness as above. Hopefully treatment as above will calm her symptoms. She will continue to rece shyann IV antiemetics. If necessary IV pain medication can be employed but will start with some oral pain meds including acetaminophen but also oxycodone as necessary. Her LFTs are abnormal as they have been when previously checked likely secondary to ongoing low-level of hemolysis. Numbers are worse slightly now likely due to her increased rate of hemolysis. Also could have an effect from the COVID infection as well. Still think it is safe to give her a dose or 2 of the remdesivir. 4. VTE prophylaxis-given patient's thrombocytopenia as well as her hemoglobinopathy I do not believe she is a candidate for any form of heparin for venous thromboembolism prophylaxis. SCDs should be a appropriate and applied and she should be encouraged to walk and be up out of bed as much as possible to reduce her risk of VTE. 5. Code status-patient appropriate for full code in the event of a sudden c ardiac or respiratory arrest which is certainly not anticipated at this time. 6. Id-patient with known COVID infection in some mild respiratory symptoms and findings on CT to suggest infection in the lungs but also with a positive urinalysis and some issues with her white blood cell count as above. Her urine cultures growing Gram-negative rods as is 1 of her blood cultures. She will be started on broad-spectrum IV antibiotics to start with. If we can identify organism antibiotic therapy can likely be quickly tailored to appropriate antibiotics for whatever species of Gram-negative karli we do eventually identify. This is probably a better explanation for her acute hemolysis than a 4 or 5 -day-old COVID infection that was minor in its symptomatology. May well explain some of her abdominal symptoms as well although I think those are more likely related to her ongoing hemolysis frankly. COVID-19 COVID-19 status: Positive Result date/Date tested (Pos, Neg/Pending): 01/14/23
[2023-01-15] MEDS: SODIUM CHLORIDE 0.9% 1,000 ML 100 ML IV (11:19)
[2023-01-15] MEDS: REMDESIVIR 200 MG in SODIUM CHLORIDE 0.9% 210 ML 250 MG IV (11:43)
--- NOTE | 2023-01-15 12:37 | PC.NURSE ---
Addendum entered by Kathy Cruz R.N. 01/15/23 18:36: Patient complained of pain to her side, given oxycodone 5mg for discomfort. Original Note: Assess- Patient is a 47 year old woman with hx of Hemolytic Anemia. She is Covid + and receiving Remdesvir now. Tolerating this well. Patient is also on ivf at 100cc/hr. BS cta, 90s on RA. K+ 3.1, patient to have potassium replacement. Two of her blood cultures came back positive for gram - rods, is aware and zosyn has been ordered. She ate well at lunch, denies nausea or emesis. Daughter in room for support and helpful with care.
[2023-01-15 13:06] LABS: Hematocrit 28.5 % (36-46); Hemoglobin 8.6 g/dL (12.0-16.0); Mean Corpuscular Hemoglobin 29.7 PG (26-34); Mean Corpuscular Volume 98.9 fL (80-100); Red Blood Cell Count 2.89 X10^6/uL (4.0-5.2); Red Cell Distribution Width 16.4 % (11.6-14.8)
[2023-01-15 13:07] LABS: Platelet Count 42 X10^3/uL (150-400)
[2023-01-15] MEDS: POTASSIUM CHLORIDE 20 MEQ TAB 40 MEQ PO ×2 (13:07→18:22)
[2023-01-15] MEDS: PIPERACILLIN/TAZO 4.5 GM in SODIUM CHLORIDE 0.9% 100 ML IV (13:07)
[2023-01-15 13:34] LABS: Acinetobacter baumannii Not Detected (Not Detect); Candida albicans Not Detected (Not Detect); Candida glabrata Not Detected (Not Detect); Candida krusei Not Detected (Not Detect); Candida parapsilosis Not Detected (Not Detect); Candida tropicalis Not Detected (Not Detect); E. coli DETECTED (Not Detect); Enterobacter cloacae complex Not Detected (Not Detect); Enterobacteriaceae species DETECTED (Not Detect); Enterococcus species Not Detected (Not Detect); Haemophilus influenzae Not Detected (Not Detect); KPC (carbapenem-resist gene) Not Detected (Not Detect); Listeria monocytogenes Not Detected (Not Detect); Neisseria meningitidis Not Detected (Not Detect); Proteus species Not Detected (Not Detect); Pseudomonas aeruginosa Not Detected (Not Detect); Serratia marcescens Not Detected (Not Detect); Staphylococcus species Not Detected (Not Detect); Streptococcus agalactiae (Gr B Not Detected (Not Detect); Streptococcus pneumonia Not Detected (Not Detect); Streptococcus pyogenes (Gr A) Not Detected (Not Detect); Streptococcus species Not Detected (Not Detect)
[2023-01-15] MEDS: OXYCODONE IR 5 MG TABLET PO (18:22)
[2023-01-15] MEDS: PIPERACILLIN/TAZO 3.375 GM in SODIUM CHLORIDE 0.9% 100 ML IV (20:54)
[2023-01-15] MEDS: ACETAMINOPHEN 325 MG TABLET 650 MG PO (20:55)
[2023-01-15 23:07] LABS: Hematocrit 23.8 % (36-46); Hemoglobin 7.3 g/dL (12.0-16.0); Mean Corpuscular HGB Conc 30.8 % (30-36); Mean Corpuscular Hemoglobin 30.4 PG (26-34); Mean Corpuscular Volume 98.6 fL (80-100); Red Blood Cell Count 2.42 X10^6/uL (4.0-5.2); Red Cell Distribution Width 16.8 % (11.6-14.8); White Blood Cell Count 5.4 X10^3/uL (4.5-11.0)
[2023-01-15 23:17] LABS: Platelet Count 35 X10^3/uL (150-400)
[2023-01-16] VITALS (7 sets, daily range): BP systolic 101–109; BP diastolic 43–69; PULSE 84–108; RESP 14–18; TEMP 37–37.9; O2SAT 91–93
[2023-01-16] MEDS: PIPERACILLIN/TAZO 3.375 GM in SODIUM CHLORIDE 0.9% 100 ML IV (05:01)
[2023-01-16 05:12] LABS: Add Manual Diff / Slide Review NO; Basophils Absolute Auto 0 /uL (0-100); Basophils Percent Auto 0.3 % (0-2); Eosinophils Absolute Auto 100 /uL (0-450); Eosinophils Percent Auto 1.6 % (2-4); Hematocrit 24.5 % (36-46); Hemoglobin 7.4 g/dL (12.0-16.0); Lymphocytes Absolute Auto 800 /uL (1100-4500); Lymphocytes Percent Auto 16.1 % (25-40); Mean Corpuscular HGB Conc 30.1 % (30-36); Mean Corpuscular Hemoglobin 29.8 PG (26-34); Mean Corpuscular Volume 98.9 fL (80-100); Monocytes Absolute Auto 300 /uL (0-900); Neutrophils Absolute Auto 3900 /uL (1500-7000); Platelet Count 39 X10^3/uL (150-400); Red Blood Cell Count 2.48 X10^6/uL (4.0-5.2)
[2023-01-16 05:16] LABS: BUN Creatinine Ratio 23.3 (6-22); Blood Urea Nitrogen 10 mg/dL (7-17); Calcium 7.2 mg/dL (8.4-10.2); Carbon Dioxide 26 mmol/L (22-32); Chloride 107 mmol/L (98-107); Estimated Glomerular Filt Rate > 60 mL/min (>60); Glucose 101 mg/dL (70-100); HEMOLYSIS < 15 (0-50); Potassium 3.4 mmol/L (3.4-5.1); Sodium 137 mmol/L (137-145)
[2023-01-16 05:30] LABS: Haptoglobin < 10 mg/dL (42-296)
[2023-01-16 05:50] LABS: Macrocytosis 1+
[2023-01-16] MEDS: DEXAMETHASONE 10 MG/ML VIAL 6 MG IV (09:18)
--- NOTE | 2023-01-16 09:27 | PM.PN.1 ---
Subjective Subjective Date Patient Seen: 01/16/23 Interval history: The pt reports feeling improved today. Her nausea, vomiting, and abdominal pain are resolved. She continues to feel fatigued and generally not well however. She denies any overt SOB or chest pain. Exam Vital Signs (past 8 hours): Fraction of Inspired Oxygen 28 Oxygen Delivery Method Nasal Cannula Oxygen Flow Rate 2 Narrative Exam Narrative: Gen: NAD, sitting comfortably in chair HEENT: scleral icterus CV: RRR, no murmurs Resp: clear to auscultation bilaterally Abd: soft, nontender, nondistended Ext: no edema Skin: jaundiced Objective Labs 01/16/23 04:35 01/16/23 04:35 Labs: Laboratory Results - last 24 hr 01/14/23 01/14/23 01/15/23 23:02 23:40 12:49 WBC 7.0 RBC 2.89 L Hgb 8.6 L Hct 28.5 L MCV 98.9 MCH 29.7 MCHC 30.0 RDW 16.4 H Plt Count 42 L Neut % (Auto) Lymph % (Auto) [place] % (Auto) Eos % (Auto) Baso % (Auto) Neut # (Auto) Lymph # (Auto) [place] # (Auto) Eos # (Auto) Baso # (Auto) Platelet Estimate RBC Morphology Macrocytosis Haptoglobin < 10 L Sodium Potassium Chloride Carbon Dioxide BUN Creatinine Estimated GFR BUN/Creatinine Ratio Glucose Calcium A. baumannii (PCR) Not detected Pily albicans (PCR) Not detected C. glabrata (PCR) Not detected C. krusei (PCR) Not detected C. parapsilosis (PCR) Not detected C. tropicalis (PCR) Not detected Enterobacteriac sp PCR Detected H E. cloacae complex PCR Not detected Enterococcus sp PCR Not detected E. coli (PCR) Detected H H. influenzae (PCR) Not detected Klebsiella oxytoca PCR Not detected Klebsiella pneumoniae Not detected List. monocytogenes PCR Not detected N. meningitidis (PCR) Not detected Proteus species (PCR) Not detected Serratia marcescens PCR Not detected Staphylococcus sp PCR Not detected Staph aureus (PCR) Not detected mecA-Methicil Res Gene Not Reportable Streptococcus sp PCR Not detected Group A Strep (PCR) Not detected Strep agalactiae (PCR) Not detected Strep pneumoniae (PCR) Not detected P. aeruginosa (PCR) Not detected KPC-Carbap Res Gene PCR Not detected 01/15/23 01/16/23 01/16/23 22:50 04:35 04:35 WBC 5.4 5.0 RBC 2.42 L 2.48 L Hgb 7.3 L 7.4 L Hct 23.8 L 24.5 L MCV 98.6 98.9 MCH 30.4 29.8 MCHC 30.8 30.1 RDW 16.8 H 17.0 H Plt Count 35 L* 39 L Neut % (Auto) 77.0 H Lymph % (Auto) 16.1 L [place] % (Auto) 5.0 Eos % (Auto) 1.6 L Baso % (Auto) 0.3 Neut # (Auto) 3900 Lymph # (Auto) 800 L [place] # (Auto) 300 Eos # (Auto) 100 Baso # (Auto) 0 Platelet Estimate RBC Morphology See below Macrocytosis 1+ H Haptoglobin Sodium 137 Potassium 3.4 Chloride 107 Carbon Dioxide 26 BUN 10 Creatinine 0.43 L Estimated GFR > 60 BUN/Creatinine Ratio 23.3 H Glucose 101 H Calcium 7.2 L A. baumannii (PCR) Pily albicans (PCR) C. glabrata (PCR) C. krusei (PCR) C. parapsilosis (PCR) C. tropicalis (PCR) Enterobacteriac sp PCR E. cloacae complex PCR Enterococcus sp PCR E. coli (PCR) H. influenzae (PCR) Klebsiella oxytoca PCR Klebsiella pneumoniae List. monocytogenes PCR N. meningitidis (PCR) Proteus species (PCR) Serratia marcescens PCR Staphylococcus sp PCR Staph aureus (PCR) mecA-Methicil Res Gene Streptococcus sp PCR Group A Strep (PCR) Strep agalactiae (PCR) Strep pneumoniae (PCR) P. 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 1) COVID pneumonia with acute respiratory failure: Pt now stable off oxygen. - Complete Remdesivir treatment - Continue Dexamethasone while in the hospital 2) Acute hemolysis with chronic hemolytic anemia: S/P PRBC transfusion in the ED. Hgb stable, however remains low at 7.4. Pt does show signs of significant jaundice as well. - 2 unit PRBC transfusion today - Repeat CBC, CMP after transfusion - Hematology did not feel steroids necessary, however receiving for COVID already 3) Abdominal pain with nausea and vomiting: Resolved. Likely secondary to COVID/UTI. - PRN antiemetics available if needed 4) Elevated liver enzymes and jaundice: Likely secondary to hemolysis - Continue to trend, repeat after blood transfusion - Should be safe to continue Remdesivir for now 5) UTI: Growing E coli - Transition from Zosyn to Ceftriaxone FEN: General diet Code: Full DVT ppx: Mobile in room, Lovenox Dispo: Pending stabilization of blood counts after transfusion. Hopeful can discharge tomorrow but will need to wait and see. Time Spent With Patient Critical Care time: I spent a total of [] minutes of critical care time on this patient's care today; this time is exclusive of procedural time. Quality VTE Deep Vein Thrombosis/Pulmonary Embolism Present on Admission: No
[2023-01-16] MEDS: REMDESIVIR 100 MG in SODIUM CHLORIDE 0.9% 230 ML 250 MG IV (09:28)
--- NOTE | 2023-01-16 11:49 | CM.DANOTE ---
Discharge Planning/Care Management CM Discharge Assessment Start: 01/16/23 11:42 Freq: Status: Active Protocol: Document 01/16/23 11:42 JAZMYN (Rec: 01/16/23 11:49 JAZMYN [id number]) Discharge Planning Assessment Assigned Perforator Operator VALDEZ Chacko DPOA/Assigned Designee Name ana Worley Contact Information [phone] Advance Directives? No Advance Directives on File Yes History Provided By Patient,Family Member,Medical Record Prior Living Arrangements House Household Members family Type of transporation used prior to Drives own vehicle admit Independent with ADL's Yes Is patient alert and oriented? Yes Barriers to Discharge No Comment 47-year-old female who normally sees Dr. Catalina Smith admitted via emergency department with COVID pneumonia with hypoxia as well as evidence of increased hemolysis. Patient expected to discharge today or tomorrow, home w/ supportive family. Daughter, Morena, here today, works as a PASSENGER CAR CONDUCTOR/AUTOMOBILE ENGINE ASSEMBLER at . No needs identified from this CM team, patient has supportive family to monitor her as she recovers from illness Discharge Plan Home Transportation Arrangement Family Referrals Initiated None needed
[2023-01-16] MEDS: POTASSIUM CHLORIDE 20 MEQ TAB 40 MEQ PO (12:22)
[2023-01-16] MEDS: cefTRIAXone 2,000 MG in SODIUM CHLORIDE 0.9% 100 ML 200 MG IV (16:22)
[2023-01-16 17:50] LABS: Add Manual Diff / Slide Review NO; Basophils Absolute Auto 0 /uL (0-100); Basophils Percent Auto 0.2 % (0-2); Eosinophils Absolute Auto 0 /uL (0-450); Eosinophils Percent Auto 0.3 % (2-4); Hematocrit 31.3 % (36-46); Hemoglobin 9.6 g/dL (12.0-16.0); Lymphocytes Absolute Auto 600 /uL (1100-4500); Lymphocytes Percent Auto 7.1 % (25-40); Mean Corpuscular HGB Conc 30.6 % (30-36); Mean Corpuscular Hemoglobin 29.7 PG (26-34); Mean Corpuscular Volume 96.9 fL (80-100); Monocytes Absolute Auto 300 /uL (0-900); Monocytes Percent Auto 3.5 % (3-14); Neutrophils Absolute Auto 7000 /uL (1500-7000); Neutrophils Percent Auto 88.9 % (50-75); Platelet Count 49 X10^3/uL (150-400); Red Blood Cell Count 3.23 X10^6/uL (4.0-5.2); Red Cell Distribution Width 18.2 % (11.6-14.8); White Blood Cell Count 7.8 X10^3/uL (4.5-11.0)
[2023-01-16 18:06] LABS: Alanine Aminotransferase 74 IU/L (<35); Albumin 3.8 g/dL (3.5-5.0); Albumin Globulin Ratio 1.1 (1.0-2.8); Alkaline Phosphatase 94 U/L (38-126); Aspartate Aminotransferase 140 IU/L (14-36); BUN Creatinine Ratio 23.7 (6-22); Bilirubin Total 5.7 mg/dL (0.2-1.3); Blood Urea Nitrogen 9 mg/dL (7-17); Carbon Dioxide 23 mmol/L (22-32); Chloride 105 mmol/L (98-107); Estimated Glomerular Filt Rate > 60 mL/min (>60); Globulin 3.4 g/dL (1.7-4.1); Glucose 143 mg/dL (70-100); HEMOLYSIS < 15 (0-50); Potassium 4.2 mmol/L (3.4-5.1); Sodium 136 mmol/L (137-145); Total Protein 7.2 g/dL (6.3-8.2)
[2023-01-17 07:00] VITALS: BP 112/51; PULSE 92; RESP 18; TEMP 36.8; O2SAT 94
[2023-01-17 08:00] VITALS: O2SAT 94
[2023-01-17 08:36] LABS: Add Manual Diff / Slide Review NO; Basophils Absolute Auto 0 /uL (0-100); Basophils Percent Auto 0.3 % (0-2); Eosinophils Absolute Auto 100 /uL (0-450); Eosinophils Percent Auto 0.8 % (2-4); Hematocrit 29.8 % (36-46); Hemoglobin 9.2 g/dL (12.0-16.0); Lymphocytes Absolute Auto 1100 /uL (1100-4500); Lymphocytes Percent Auto 16.6 % (25-40); Mean Corpuscular HGB Conc 30.9 % (30-36); Mean Corpuscular Hemoglobin 29.8 PG (26-34); Mean Corpuscular Volume 96.5 fL (80-100); Monocytes Absolute Auto 300 /uL (0-900); Monocytes Percent Auto 4.2 % (3-14); Neutrophils Absolute Auto 5000 /uL (1500-7000); Neutrophils Percent Auto 78.1 % (50-75); Platelet Count 44 X10^3/uL (150-400); Red Blood Cell Count 3.09 X10^6/uL (4.0-5.2); Red Cell Distribution Width 17.9 % (11.6-14.8); White Blood Cell Count 6.4 X10^3/uL (4.5-11.0)
[2023-01-17 08:51] LABS: Alanine Aminotransferase 61 IU/L (<35); Albumin 3.6 g/dL (3.5-5.0); Albumin Globulin Ratio 1.1 (1.0-2.8); Alkaline Phosphatase 78 U/L (38-126); Aspartate Aminotransferase 82 IU/L (14-36); Bilirubin Total 4.3 mg/dL (0.2-1.3); Blood Urea Nitrogen 11 mg/dL (7-17); Calcium 8.1 mg/dL (8.4-10.2); Carbon Dioxide 29 mmol/L (22-32); Chloride 103 mmol/L (98-107); Estimated Glomerular Filt Rate > 60 mL/min (>60); Globulin 3.2 g/dL (1.7-4.1); Glucose 100 mg/dL (70-100); HEMOLYSIS < 15 (0-50); Potassium 3.7 mmol/L (3.4-5.1); Sodium 136 mmol/L (137-145); Total Protein 6.8 g/dL (6.3-8.2)
--- NOTE | 2023-01-17 09:58 | PM.DS.1 ---
History of Present Illness History of Present Illness Date Patient Seen: 01/17/23 Time Patient Seen: 09:59 Chief complaint: covid +, abd pain, vomiting Narrative: 47-year-old female who normally sees Dr. Catalina Smith admitted via emergency department with COVID pneumonia with hypoxia as well as evidence of increased hemolysis.? Patient presented with abdominal pain with vomiting.? Found to be somewhat more anemic than usual, as well as leukopenic and her known thrombocytopenia.? This was felt to be due to increased hemolysis secondary to known COVID infection.? Patient tested positive for COVID several days prior to presentation and was not feeling particularly ill until the abdominal symptoms etcetera presented Hematology was consulted over the phone by the emergency department they recommended transfusion.? She was initially given some corticosteroids for the hemolysis, but Hematology did not feel that was necessary for that purpose.? She seems to have responded to transfusion with stable hemoglobin/hematocrit.? For whatever reason she was leukopenic but that responded back to normal as well.? Her thrombocytopenia has remained stable She is admitted for continued monitoring primarily of her hemoglobin/hematocrit as an indicator of her degree of hemolysis She also has small degree hypoxia requiring oxygen replacement therapy in the setting of COVID pneumonia.? Fortunately evaluation of her lungs including chest CT angiography fails to demonstrate any evidence of serious abnormality, such as serious consolidation etcetera.? No evidence of pulmonary embolism at this point.? She does show evidence of reactive lymphadenopathy consistent with her COVID diagnosis and her presumed COVID pneumonia Discharge Providers Provider Date of admission: 01/16/23 09:19 Discharge Date: 01/17/23 Primary care physician: Catalina Smith MD Discharge provider: Catalina Smith MD Summary Hospital Course Discharge Diagnosis: COVID pneumonia Acute hypoxic respiratory failure Sepsis UTI Bacteremia Acute hemolysis Elevated liver enzymes Jaundice Hospital Course: Patient presented with nausea, vomiting, and abdominal pain in the setting of recent COVID infection. She was then noted to have significant hemolysis with known chronic hemolytic anemia. She was admitted for management of this. She received a total of 4 units of PRBCs on the hospital. At the time of discharge, her blood count was stable and liver enzymes and bilirubin were trending down. At presentation the patient was requiring oxygen support due to her COVID pneumonia with acute hypoxic respiratory failure. By the time of discharge this was completely weaned and she was stable on room air. The patient did received remdesivir and dexamethasone while in the hospital for her COVID. This steroids likely helped with her hemolysis as well. The patient was noted to have an E coli UTI, and ultimately E coli bacteremia. She was continued on broad-spectrum antibiotics while in the hospital, and will discharged on levofloxacin to complete as an outpatient. Ultimately this was likely the cause of her hemolytic anemia and abdominal pain, nausea, and vomiting and not as much the COVID infection. The patient has been afebrile for more than 48 hours at the time of discharge, and remains stable. Status at Discharge Cognitive/behavioral status at discharge: oriented Functional status at discharge: independent ambulation Overall status at discharge: patient is progressing back to baseline Exam Vital Signs (past 8 hours): - 01/17/23 07:00 Temperature 98.3 F Pulse Rate 92 H Respiratory Rate 18 Blood Pressure 112/51 L Pulse Oximetry 94 Oxygen Flow Rate 0 Fraction of Inspired Oxygen 28 Oxygen Delivery Method Room Air Oxygen Flow Rate 0 Narrative Exam Narrative: Gen:? NAD, sitting comfortably in chair HEENT:? scleral icterus CV:? RRR, no murmurs Resp:? clear to auscultation bilaterally Abd:? soft, nontender, nondistended Ext:? no edema Skin:? jaundiced, improved from yesterday Objective Labs 01/17/23 08:15 01/17/23 08:15 Labs: Laboratory Results - last 24 hr 01/15/23 01/16/23 01/16/23 00:30 17:33 17:33 WBC 7.8 D RBC 3.23 L Hgb 9.6 L Hct 31.3 L MCV 96.9 MCH 29.7 MCHC 30.6 RDW 18.2 H Plt Count 49 L Neut % (Auto) 88.9 H Lymph % (Auto) 7.1 L [place] % (Auto) 3.5 Eos % (Auto) 0.3 L Baso % (Auto) 0.2 Neut # (Auto) 7000 Lymph # (Auto) 600 L [place] # (Auto) 300 Eos # (Auto) 0 Baso # (Auto) 0 Sodium 136 L Potassium 4.2 Chloride 105 Carbon Dioxide 23 BUN 9 Creatinine 0.38 L Estimated GFR > 60 BUN/Creatinine Ratio 23.7 H Glucose 143 H Calcium 8.0 L Total Bilirubin 5.7 H AST 140 H ALT 74 H Alkaline Phosphatase 94 Total Protein 7.2 Albumin 3.8 Globulin 3.4 Albumin/Globulin Ratio 1.1 Blood Type O Positive Antibody Screen Negative Crossmatch See Detail 01/17/23 01/17/23 08:15 08:15 WBC 6.4 RBC 3.09 L Hgb 9.2 L Hct 29.8 L MCV 96.5 MCH 29.8 MCHC 30.9 RDW 17.9 H Plt Count 44 L Neut % (Auto) 78.1 H Lymph % (Auto) 16.6 L [place] % (Auto) 4.2 Eos % (Auto) 0.8 L Baso % (Auto) 0.3 Neut # (Auto) 5000 Lymph # (Auto) 1100 [place] # (Auto) 300 Eos # (Auto) 100 Baso # (Auto) 0 Sodium 136 L Potassium 3.7 Chloride 103 Carbon Dioxide 29 BUN 11 Creatinine 0.44 L Estimated GFR > 60 BUN/Creatinine Ratio 25.0 H Glucose 100 Calcium 8.1 L Total Bilirubin 4.3 H AST 82 H ALT 61 H Alkaline Phosphatase 78 Total Protein 6.8 Albumin 3.6 Globulin 3.2 Albumin/Globulin Ratio 1.1 Blood Type Antibody Screen Crossmatch [facility] Medical History (Updated 01/15/23 @ 13:42 by Lourdes Montiel RN) Anemia Chronic hemolytic anemia 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) Splenomegaly Thrombocytopenia (05/15/11) Surgical History Anesthesia Status post laparoscopic cholecystectomy (~12/2013) Family History Mother Age: 65 Diabetes mellitus Social History household members: family Smoking Status: Never smoker alcohol intake: current substance use type: does not use Discharge Plan Discharge Plan Patient Disposition: Home Discharge orders & Medications Prescriptions: New levofloxacin 750 mg tablet 750 mg PO DAILY Qty: 11 0RF Follow up/Referrals: Catalina Smith MD [Primary Care Provider] - 2 Weeks Diet/Activity/Treatments Diet: Diet as Tolerated and Regular Skin/Wound/Dressing Care Report to your healthcare provider any signs of infection, such as:: chills, fever and increased pain Visit Report/Discharge Packet Instructions: Autoimmune Hemolytic Anemia Stand Alone Forms: Patient Portal/API, Stroke Signs & Symptoms Discharge Data Primary Care Provider: Catalina Smith VTE Deep Vein Thrombosis/Pulmonary Embolism Present on Admission: No
[2023-01-17] MEDS: REMDESIVIR 100 MG in SODIUM CHLORIDE 0.9% 230 ML 250 MG IV (10:18)
[2023-01-17] MEDS: DEXAMETHASONE 10 MG/ML VIAL 6 MG IV (10:19)
--- NOTE | 2023-01-17 11:00 | CM.DPNOTE ---
Discharge Planning Note: Patient has been improving, vitals stable, eating, independent and pain resolving per nursing. Plan: DC today per doctor's orders. DC to care of family. Anni Roy RN/DCP
[2023-01-17] MEDS: cefTRIAXone 2,000 MG in SODIUM CHLORIDE 0.9% 100 ML 200 MG IV (12:27)
--- NOTE | 2023-01-17 15:09 | PC.NURSE ---
Discharge: Pt feels ready to d/c to home. Received her IV meds before leaving. Seen by MD who gave her discharge instructions. Reviewed discharge packet. She is oxygenating better today, 94 to 95% on room air, lungs sound much clearer. More activity tolerance. Reports symptoms have improved, she can be up amb and is much less sob. Her urinary urgency and burning are gone, vds with/out difficulty. Tolerates sm amt of diet and fluids. Denies any concerns about discharge. D/c to home via auto w/family.
== END 2023-01-17 14:15 | disposition home or self-care (01) | DRG 871 ==
LOC: ED 01-15 07:01 → AC 01-15 10:04
PROVIDERS: Emergency Medicine; Admitting Provider Internal Medicine; Emergency Provider Emergency Medicine; PCP Family Medicine; Referring Provider Emergency Medicine; Visit Provider Family Medicine
DX: A41.9 Sepsis, unspecified organism (principal); J12.82 Pneumonia due to coronavirus disease 2019; U07.1 COVID-19; J96.01 Acute respiratory failure with hypoxia; N39.0 Urinary tract infection, site not specified; D58.9 Hereditary hemolytic anemia, unspecified; R17 Unspecified jaundice; B96.20 Unspecified Escherichia coli [E. coli] as the cause of diseases classified elsewhere
CPT/HCPCS: 36415; 36430; 71045; 71275; 74177; 76705; 80048; 80053; 80076; 81001; 83010; 83605; 83615; 83690; 84145; 85007; 85025; 85027; 85379; 85610; 85730; 86850; 86900; 86901; 87040; 87077; 87086; 87150; 87186; 87633; 93005; 93010; 96365; 96375; 96376; 99223; 99238; 99285; 99291; G0378; P9016; J0692; J0696; J1100; J1170; J2405; J2543; Q9967

== ENCOUNTER → 2023-09-22 08:10 | Outpatient (CLI) | payer OTHER, SELFPAY ==
[2023-01-15 11:33] VITALS: BMI 24.5
[2023-09-22 09:16] LABS: Add Manual Diff / Slide Review NO; Basophils Absolute Auto 0 /uL (0-100); Basophils Percent Auto 0.8 % (0-2); Eosinophils Absolute Auto 100 /uL (0-450); Eosinophils Percent Auto 1.6 % (2-4); Hematocrit 38.7 % (36-46); Hemoglobin 11.3 g/dL (12.0-16.0); Lymphocytes Absolute Auto 1400 /uL (1100-4500); Lymphocytes Percent Auto 29.8 % (25-40); Mean Corpuscular HGB Conc 29.3 % (30-36); Mean Corpuscular Volume 99.2 fL (80-100); Monocytes Absolute Auto 200 /uL (0-900); Monocytes Percent Auto 5.2 % (3-14); Neutrophils Absolute Auto 3000 /uL (1500-7000); Neutrophils Percent Auto 62.6 % (50-75); Platelet Count 59 X10^3/uL (150-400); Red Cell Distribution Width 15.1 % (11.6-14.8); White Blood Cell Count 4.8 X10^3/uL (4.5-11.0)
[2023-09-22 09:28] LABS: Cholesterol 136 mg/dL (140-199); HDL Cholesterol 51 mg/dL (40-60); LDL Cholesterol Calculated 59 mg/dL (<100); Triglycerides 131 mg/dL (35-150)
== END ==
PROVIDERS: PCP Family Medicine; Referring Provider Family Medicine; Visit Provider Family Medicine
DX: D64.9 Anemia, unspecified (principal); Z13.220 Encounter for screening for lipoid disorders
CPT/HCPCS: 36415; 80061; 85025

== ENCOUNTER → 2023-09-30 07:51 | Outpatient (CLI) | payer OTHER, SELFPAY ==
[2023-01-15 11:33] VITALS: BMI 24.5
--- NOTE | 2023-09-30 07:52 | DI.MG.S_ITS ---
BILATERAL DIGITAL SCREENING MAMMOGRAM 3D/2D WITH CAD: 09/30/2023 CLINICAL: Routine screening. Comparison is made to exams dated: 01/01/2021 mammogram, 12/29/2019 mammogram, and 11/12/2018 mammogram - [facility]. Both breasts are heterogeneously dense, which may obscure small masses (category c / 51-75% glandular tissue). Current study was also evaluated with a Computer Aided Detection (CAD) system. No significant masses, calcifications, or other findings are seen in either breast. There has been no significant interval change. IMPRESSION: NEGATIVE There is no mammographic evidence of malignancy. A 1 year screening mammogram is recommended. Based on the Tyrer Cuzick model (a risk assessment model) the patient's lifetime risk is 8.4% and her 10 year risk is 1.9%. According to the ACR, ACS, and NCCN guidelines, an annual breast MRI exam along with mammogram is recommended if the patient's lifetime risk is 20% or greater. This exam was interpreted at Station ID: [id number]. NOTE: For mammograms, a report in lay terms will be sent to the patient. Approximately 15% of breast malignancies will not be visualized mammographically. In the management of a palpable breast mass, a negative mammogram must not discourage biopsy of a clinically suspicious lesion. Electronically Signed By: Soto farris/veronique:09/30/2023 08:42:10 letter sent: Normal Exam ACR BI-RADS Category 1: Negative [id number]
== END ==
PROVIDERS: PCP Family Medicine; Referring Provider Family Medicine; Visit Provider Family Medicine
DX: Z12.31 Encounter for screening mammogram for malignant neoplasm of breast (principal)
CPT/HCPCS: 77063; 77067

== ENCOUNTER 2024-01-14 12:20 | Day surgery (SDC) | payer OTHER, SELFPAY ==
[2023-01-15 11:33] VITALS: BMI 24.5
[2024-01-14 12:44] VITALS: BP 119/75; PULSE 67; RESP 16; TEMP 36.1; O2SAT 93
[2024-01-14] MEDS: LACTATED RINGERS 1,000 ML 150 ML IV (12:53)
--- NOTE | 2024-01-14 13:22 | P.HP_ITS ---
History of Present Illness History of Present Illness Date Patient Seen: 01/14/24 Time Patient Seen: 13:22 Chief complaint: Colonoscopy Narrative: Mary is a 48-year-old woman who is here for a screening colonoscopy. She has never had 1 before. No family history of colon cancer. No rectal bleeding or melena. 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) Surgical History Anesthesia Status post laparoscopic cholecystectomy (~12/2013) Family History Mother Age: 65 Diabetes mellitus Social History household members: family Smoking Status: Never smoker alcohol intake: current substance use type: does not use Meds Home Medications and Allergies Home Medications Medication Instructions Recorded Confirmed Type No Known Home Medications 01/14/24 01/14/24 History Allergies Allergy/AdvReac Type Severity Reaction Status Date / Time No Known Drug Allergies Allergy Verified 01/14/24 12:44 Exam Vital Signs (past 8 hours): - 01/14/24 12:44 Temperature 97 F L Pulse Rate 67 Respiratory Rate 16 Blood Pressure 119/75 Pulse Oximetry 93 Oxygen Delivery Method Room Air Oxygen Delivery Method Room Air Const General: No acute distress Resp Effort & Inspection: normal respiratory effort Assessment & Plan Assessment and plan (1) Colon cancer screening: Status: Acute Plan Mary is a 48-year-old woman who presents for a screening colonoscopy. She has never before. She is average risk. We reviewed the risks and benefits and she would like to proceed.
[2024-01-14 13:46] VITALS: BP 102/50; PULSE 81; RESP 20; TEMP 36.7; O2SAT 94
--- NOTE | 2024-01-14 13:47 | PM.OP.COLON ---
Operative Date/Time/Diagnoses Date of procedure: 01/14/24 Time of procedure: 13:47 Pre-op diagnosis: Colon cancer screening Post-op diagnosis: same Procedure & Clinicians Study performed: Colonoscopy Same procedure as scheduled: Yes Surgeon: Dwayne Jarvis Procedure Notes Procedure in detail: Surgeon: Dwayne Jarvis MD Anesthesia: Moon Roy CRNA Procedure: The patient was brought to the endoscopy suite, placed in left lateral decubitus position. The patient was connected to monitoring devices. A time-out was performed. Sedation was administered. Once the patient was adequately sedated, a digital rectal exam was performed and was normal. The scope was then inserted and advanced to the cecum where the appendiceal orifice was identified and photographed. The scope was then slowly withdrawn over greater than 6 minutes. The mucosa was thoroughly inspected. No abnormalities were found. The scope was retroflexed in the rectum. The scope was straightened and removed. The patient was awakened and brought to recovery. Scope withdrawal time: 7 minutes Sedation time: 10 minutes EBL: 0 Findings: Normal colon Post-procedure Recommendations: Colonoscopy in 10 years Disposition: PACU
[2024-01-14 13:50] VITALS: BP 110/56; PULSE 70; RESP 18; O2SAT 94
[2024-01-14 13:56] VITALS: BP 112/45; PULSE 71; RESP 18; O2SAT 95
[2024-01-14 14:00] VITALS: BP 112/58; PULSE 69; RESP 19; O2SAT 95
== END 2024-01-14 14:12 | disposition home or self-care (01) ==
PROVIDERS: PCP Family Medicine; Referring Provider Surgery; Visit Provider Surgery
PROC: 0DJD8ZZ Inspection of Lower Intestinal Tract, Via Natural or Artificial Opening Endoscopic (ICD-10-PCS; CPT 45378; principal; 2024-01-14 13:15)
DX: Z12.11 Encounter for screening for malignant neoplasm of colon (principal)
CPT/HCPCS: 45378; J2704

== ENCOUNTER → 2025-08-28 14:01 | Outpatient (CLI) | payer OTHER, SELFPAY ==
[2023-01-15 11:33] VITALS: BMI 24.5
== END ==
PROVIDERS: PCP Family Medicine; Visit Provider Family Medicine
DX: N89.8 Other specified noninflammatory disorders of vagina (principal)
CPT/HCPCS: 87210

== ENCOUNTER → 2025-08-28 14:12 | Outpatient (CLI) | payer OTHER, SELFPAY ==
[2023-01-15 11:33] VITALS: BMI 24.5
[2025-08-28 14:51] LABS: Add Manual Diff / Slide Review NO; Hematocrit 39.6 % (36-46); Hemoglobin 11.4 g/dL (12.0-16.0); Lymphocytes Absolute Auto 1600 /uL (1100-4500); Mean Corpuscular HGB Conc 28.8 % (30-36); Mean Corpuscular Hemoglobin 29.1 PG (26-34); Mean Corpuscular Volume 100.9 fL (80-100); Platelet Count 42 X10^3/uL (150-400)
[2025-08-28 15:17] LABS: Alanine Aminotransferase 31 IU/L (<35); Albumin 4.5 g/dL (3.5-5.0); Albumin Globulin Ratio 1.5 (1.0-2.8); Alkaline Phosphatase 68 U/L (38-126); Blood Urea Nitrogen 11 mg/dL (7-17); Calcium 8.6 mg/dL (8.4-10.2); Carbon Dioxide 25 mmol/L (22-32); Chloride 106 mmol/L (98-107); Cholesterol 128 mg/dL (140-199); Estimated Glomerular Filt Rate > 60 mL/min (>60); Globulin 3.0 g/dL (1.7-4.1); Glucose 96 mg/dL (70-99); HDL Cholesterol 54 mg/dL (40-60); HEMOLYSIS < 15 (0-50); Potassium 3.7 mmol/L (3.4-5.1); Sodium 138 mmol/L (137-145); Total Protein 7.5 g/dL (6.3-8.2); Triglycerides 206 mg/dL (35-150)
== END ==
PROVIDERS: PCP Family Medicine; Referring Provider Family Medicine; Visit Provider Family Medicine
DX: R74.8 Abnormal levels of other serum enzymes (principal); Z13.220 Encounter for screening for lipoid disorders; D64.9 Anemia, unspecified; N89.8 Other specified noninflammatory disorders of vagina
CPT/HCPCS: 36415; 80053; 80061; 85025; 87210